=== PATIENT | male | born 1975 | race Caucasian/White ===

== ENCOUNTER 2017-10-19 23:48 | Emergency (ER) | payer SELFPAY ==
[~2017-10-19 23:48] MED LIST: LOR5 PO; NO MEDS; [UNRECOGNIZED DRUG - CODE] PO
[2017-10-20 00:16] LABS: PLATELET COUNT, AUTOMATED 861 K/uL (150-450)
--- NOTE | 2017-10-20 00:29 | ER Report ---
History and Physical Time Seen By MD: 23:59 Hx. of Stated Complaint: pt started having sharp abdominal pain yesterday after a week of bloating, and cramping. HPI/ROS CHIEF COMPLAINT: Abdominal pain HISTORY OF PRESENT ILLNESS: 42-year-old male presents with abdominal pain since yesterday morning. He describes periumbilical pain with no radiation. He notes crampy, gassy bloating pain which she describes as severe in nature, rating it 8/10. He notes no alleviating or exacerbating factors. She notes no nausea or vomiting. He notes no dysuria or hematuria. Patient denies previous abdominal surgery. He states that he overdosed on ibuprofen and suffered a tear. I think he means an upper GI bleed. Patient states that he's had chronic intermittent diarrhea since then. She notes increased pain with eating food or water. REVIEW OF SYSTEMS: Respiratory: No cough, no dyspnea. Cardiovascular: No chest pain, no palpitations. Gastrointestinal: As above Musculoskeletal: No back pain. Allergies: Coded Allergies: No Known Drug Allergies (Unverified , 10/27/11) Home Meds Active Scripts Potassium Chloride (K-TAB) 10 Meq Tablet.er, 10 MEQ PO DAILY for potassium replacement, #30 Prov:TYRONE DEL CASTILLO DO 10/20/17 Ondansetron (ZOFRAN ODT) 4 Mg Tab.rapdis, 4 MG PO every 6 hours Y for NAUSEA/ VOMITING, #12 TAB TAKE 1 TABLET BY MOUTH EVERY 12 HOURS Prov:TYRONE DEL CASTILLO DO 10/20/17 Tramadol Hcl (TRAMADOL HCL) 50 Mg Tablet, 1 TAB PO Q6H for PAIN, #12 MG TAKE ONE TABLETS BY MOUTH EVERY SIX HOURS NEEDED Prov:TYRONE DEL CASTILLO DO 10/20/17 Discontinued Reported Medications Diclofenac Sodium (Voltaren) 75 Mg Tablet.dr, 75 MG PO BID, #30 10/27/11 Acetaminophen/Hydrocodone (Lortab 5/500) 5 Mg/500 Mg Tab, 1 TAB PO Q6H Y, #10 10/27/11 [No Meds] No Conflict Check 10/27/11 Hx Smoking: Yes Hx Substance Use Disorder: No Constitutional Vital Sign - Last 24 Hours 10/19/17 10/19/17 10/20/17 10/20/17 23:52 23:57 00:00 00:05 Temp 98.7 Pulse 106 102 Resp 16 B/P (MAP) 133/92 133/92 (106) 121/84 (96) Pulse Ox 98 10/20/17 10/20/17 10/20/17 00:30 00:35 01:00 Pulse 99 B/P (MAP) 100/68 (79) 113/75 (88) Physical Exam General Appearance: The patient is alert, has no immediate need for airway protection and no current signs of toxicity. Mild distress, slightly pale appearing, skin warm and dry HEENT: Pupils equal and round no injection. Oropharynx without redness or exudate, mucous. Membranes are moist Respiratory: Chest is non tender, lungs are clear to auscultation. Cardiac: regular rate and rhythm Gastrointestinal: Abdomen is soft, mild periumbilical tenderness, no masses, bowel sounds normal. Musculoskeletal: Neck: Neck is supple and non tender. Extremities have full range of motion and are non tender. Skin: No rashes or lesions. DIFFERENTIAL DIAGNOSIS: After history and physical exam differential diagnosis was considered for abdominal pain including but not limited to appendicitis, cholecystitis, gastritis, food poisoning, gastroenteritis, viral syndrome and urinary tract infection. Medical Decision Making Data Points Result Diagram: 10/20/17 0000 10/20/17 0000 Laboratory Hematology Test 10/20/17 00:00 Red Blood Count 5.58 M/uL (4.00-5.60) Mean Corpuscular Volume 54.4 fL (80.0-96.0) Mean Corpuscular Hemoglobin 16.4 pg (26.0-33.0) Mean Corpuscular Hemoglobin Concent 30.1 g/dL (32.0-36.0) Red Cell Distribution Width 19.5 % (11.5-14.5) Mean Platelet Volume 6.3 fL (7.2-11.1) Neutrophils (%) (Auto) 74.4 % (39.4-72.5) Lymphocytes (%) (Auto) 15.5 % (17.6-49.6) Monocytes (%) (Auto) 9.5 % (4.1-12.4) Eosinophils (%) (Auto) 0.1 % (0.4-6.7) Basophils (%) (Auto) 0.5 % (0.3-1.4) Nucleated RBC Relative Count (auto) 0.0 /100WBC Neutrophils # (Auto) 7.2 K/uL (2.0-7.4) Lymphocytes # (Auto) 1.5 K/uL (1.3-3.6) Monocytes # (Auto) 0.9 K/uL (0.3-1.0) Eosinophils # (Auto) 0.0 K/uL (0.0-0.5) Basophils # (Auto) 0.0 K/uL (0.0-0.1) Nucleated RBC Absolute Count (auto) 0.00 K/uL Peripheral Blood Smear Yes Y/N Urine Color Renae Urine Clarity Slightly-cloudy Urine pH 5.0 pH (4.8-9.5) Urine Specific [place] 1.019 Urine Protein 100 mg/dL (NEGATIVE) Urine Glucose (UA) Negative mg/dL (NEGATIVE) Urine Ketones Trace mg/dL (NEGATIVE) Urine Blood Negative (NEGATIVE) Urine Nitrite Negative (NEGATIVE) Urine Bilirubin Negative (NEGATIVE) Urine Urobilinogen Negative mg/dL (0.2-1.9) Urine Leukocyte Esterase Negative (NEGATIVE) Urine RBC 2 /HPF (0-2/HPF) Urine WBC 6 /HPF (0-5/HPF) Urine WBC Clumps Few /HPF Urine Squamous Epithelial Cells None /LPF (</=FEW) Urine Transitional Epithelial Cells Few /LPF (NONE-FEW) Urine Bacteria Negative /HPF (NONE-FEW) Urine Hyaline Casts Few /LPF (NONE-FEW) Urine Granular Casts Few /LPF (NONE) Urine Mucus Few /HPF (NONE-FEW) Sodium Level 135 mmol/L (137-145) Potassium Level 2.8 mmol/L (3.5-5.0) Chloride Level 96 mmol/L (98-107) Carbon Dioxide Level 27 mmol/L (22-30) Blood Urea Nitrogen 9 mg/dl (9-21) Creatinine 1.00 mg/dl (0.66-1.25) Glomerular Filtration Rate Calc > 60.0 Random Glucose 110 mg/dl (75-110) Calcium Level 8.9 mg/dl (8.4-10.2) Total Bilirubin 0.6 mg/dl (0.2-1.3) Aspartate Amino Transf (AST/SGOT) 21 U/L (0-35) Alanine Aminotransferase (ALT/SGPT) 25 U/L (0-56) Alkaline Phosphatase 143 U/L (0-126) Total Protein 7.8 g/dl (6.3-8.2) Albumin 3.8 g/dl (3.5-5.0) Amylase Level 107 U/L (0-110) Lipase 47 U/L (23-300) Chemistry Test 10/20/17 00:00 White Blood Count 9.7 k/uL (4.5-11.0) Red Blood Count 5.58 M/uL (4.00-5.60) Hemoglobin 9.1 g/dL (14.0-18.0) Hematocrit 30.4 % (42.0-52.0) Mean Corpuscular Volume 54.4 fL (80.0-96.0) Mean Corpuscular Hemoglobin 16.4 pg (26.0-33.0) Mean Corpuscular Hemoglobin Concent 30.1 g/dL (32.0-36.0) Red Cell Distribution Width 19.5 % (11.5-14.5) Platelet Count 861 K/uL (150-450) Mean Platelet Volume 6.3 fL (7.2-11.1) Neutrophils (%) (Auto) 74.4 % (39.4-72.5) Lymphocytes (%) (Auto) 15.5 % (17.6-49.6) Monocytes (%) (Auto) 9.5 % (4.1-12.4) Eosinophils (%) (Auto) 0.1 % (0.4-6.7) Basophils (%) (Auto) 0.5 % (0.3-1.4) Nucleated RBC Relative Count (auto) 0.0 /100WBC Neutrophils # (Auto) 7.2 K/uL (2.0-7.4) Lymphocytes # (Auto) 1.5 K/uL (1.3-3.6) Monocytes # (Auto) 0.9 K/uL (0.3-1.0) Eosinophils # (Auto) 0.0 K/uL (0.0-0.5) Basophils # (Auto) 0.0 K/uL (0.0-0.1) Nucleated RBC Absolute Count (auto) 0.00 K/uL Peripheral Blood Smear Yes Y/N Urine Color Renae Urine Clarity Slightly-cloudy Urine pH 5.0 pH (4.8-9.5) Urine Specific [place] 1.019 Urine Protein 100 mg/dL (NEGATIVE) Urine Glucose (UA) Negative mg/dL (NEGATIVE) Urine Ketones Trace mg/dL (NEGATIVE) Urine Blood Negative (NEGATIVE) Urine Nitrite Negative (NEGATIVE) Urine Bilirubin Negative (NEGATIVE) Urine Urobilinogen Negative mg/dL (0.2-1.9) Urine Leukocyte Esterase Negative (NEGATIVE) Urine RBC 2 /HPF (0-2/HPF) Urine WBC 6 /HPF (0-5/HPF) Urine WBC Clumps Few /HPF Urine Squamous Epithelial Cells None /LPF (</=FEW) Urine Transitional Epithelial Cells Few /LPF (NONE-FEW) Urine Bacteria Negative /HPF (NONE-FEW) Urine Hyaline Casts Few /LPF (NONE-FEW) Urine Granular Casts Few /LPF (NONE) Urine Mucus Few /HPF (NONE-FEW) Glomerular Filtration Rate Calc > 60.0 Calcium Level 8.9 mg/dl (8.4-10.2) Total Bilirubin 0.6 mg/dl (0.2-1.3) Aspartate Amino Transf (AST/SGOT) 21 U/L (0-35) Alanine Aminotransferase (ALT/SGPT) 25 U/L (0-56) Alkaline Phosphatase 143 U/L (0-126) Total Protein 7.8 g/dl (6.3-8.2) Albumin 3.8 g/dl (3.5-5.0) Amylase Level 107 U/L (0-110) Lipase 47 U/L (23-300) Urinalysis Test 10/20/17 00:00 Urine Color Renae Urine Clarity Slightly-cloudy Urine pH 5.0 pH (4.8-9.5) Urine Specific [place] 1.019 Urine Protein 100 mg/dL (NEGATIVE) Urine Glucose (UA) Negative mg/dL (NEGATIVE) Urine Ketones Trace mg/dL (NEGATIVE) Urine Blood Negative (NEGATIVE) Urine Nitrite Negative (NEGATIVE) Urine Bilirubin Negative (NEGATIVE) Urine Urobilinogen Negative mg/dL (0.2-1.9) Urine Leukocyte Esterase Negative (NEGATIVE) Urine RBC 2 /HPF (0-2/HPF) Urine WBC 6 /HPF (0-5/HPF) Urine WBC Clumps Few /HPF Urine Squamous Epithelial Cells None /LPF (</=FEW) Urine Transitional Epithelial Cells Few /LPF (NONE-FEW) Urine Bacteria Negative /HPF (NONE-FEW) Urine Hyaline Casts Few /LPF (NONE-FEW) Urine Granular Casts Few /LPF (NONE) Urine Mucus Few /HPF (NONE-FEW) ED Course/Re-evaluation Clinical Indication for ER IV: IV Access ED Course Patient was admitted to an examination room. H&P was done. The differential diagnoses was considered. On clinical examination. Patient has periumbilical pain. He has a normal white blood cell count. On clinical examination is benign nonsurgical abdomen. He does have iron deficiency anemia. His alkaline phosphatase is mildly elevated. Potassium returns at 2.8. He is given 40 no evidence of potassium by mouth His urinalysis has a few white cells in by dad infection. I do not think the etiology of his pain is and appendicitis. Patient be discharged home. His advised to follow-up with primary care. He needs to have his potassium rechecked. He needs his iron deficiency anemia evaluated. Patient's cautioned return to the ER for any worsening of his abdominal pain. He is advised clear liquid diet. He is given tramadol for pain and Zofran for nausea. Decision to Disposition Date: Oct 20, 2017 Decision to Disposition Time: 01:09 Depart Departure Latest Vital Signs Vital Signs Date Time Temp Pulse Resp B/P (MAP) Pulse Ox O2 Delivery O2 Flow Rate FiO2 10/20/17 01:00 113/75 (88) 10/20/17 00:35 99 10/19/17 23:52 98.7 16 98 Impression: Primary Impression: Abdominal pain Additional Impressions: Iron deficiency anemia Elevated alkaline phosphatase level Hypokalemia Condition: Improved Disposition: HOME OR SELF-CARE Referrals: GABRIELA THOMAS MD, FARRUKH MD New Scripts Potassium Chloride (K-TAB) 10 Meq Tablet.er 10 MEQ PO DAILY for potassium replacement, #30 Prov: TYRONE DEL CASTILLO DO 10/20/17 Ondansetron (ZOFRAN ODT) 4 Mg Tab.rapdis 4 MG PO every 6 hours Y for NAUSEA/VOMITING, #12 TAB TAKE 1 TABLET BY MOUTH EVERY 12 HOURS Prov: TYRONE DEL CASTILLO DO 10/20/17 Tramadol Hcl (TRAMADOL HCL) 50 Mg Tablet 1 TAB PO Q6H for PAIN, #12 MG TAKE ONE TABLETS BY MOUTH EVERY SIX HOURS NEEDED Prov: TYRONE DEL CASTILLO DO 10/20/17 Patient Instructions: Abdominal Pain (ED), Clear Liquid Diet (ED), Hypokalemia (ED), Iron Deficiency Anemia (ED) Additional Instructions: Follow clear liquid diet for 24-48 hours Follow-up with primary care if unimproved in 2-4 days Return to the ER for any worsening Problem Qualifiers Primary Impression: Abdominal pain Abdominal location: periumbilical Qualified Codes: R10.33 - Periumbilical pain Additional Impressions: Iron deficiency anemia Iron deficiency anemia type: unspecified iron deficiency Qualified Codes: D50.9 - Iron deficiency anemia, unspecified TYRONE DEL CASTILLO DO Oct 20, 2017 00:29
[2017-10-20 01:00] VITALS: BP 113/75
[2017-10-20] MEDS ORDERED: traMADol 50 MG TAB TH 2 TAB/BOTTLE PO ONE (01:05)
[2017-10-20] MEDS ORDERED: ONDANSETRON 4 MG ODT TH SL ONE (01:05)
[2017-10-20] MEDS ORDERED: TRAM-420 PO (01:14)
[2017-10-20] MEDS ORDERED: ONDA4TAB PO (01:14)
[2017-10-20] MEDS ORDERED: POTA-1 PO (01:19)
[2017-10-20] MEDS ORDERED: POTASSIUM CHL 20 MEQ TABCR PO ONE (01:20)
[2017-10-20] MEDS ORDERED: ONDANSETRON 4 MG ODT TABDP SL ONE (01:20)
== END 2017-10-20 01:30 | disposition home or self-care (01) ==
LOC: ER 23:50
DX: R10.33 Periumbilical pain (principal); D50.9 Iron deficiency anemia, unspecified; R79.89 Other specified abnormal findings of blood chemistry; E87.6 Hypokalemia
CPT/HCPCS: 81001; 82150; 83690; 85025; 99283; C9399; S0119; 82040; 82247; 82310; 82374; 82435; 82565; 82947; 84075; 84132; 84155; 84295; 84450; 84460; 84520

== ENCOUNTER 2017-12-09 14:30 | Inpatient (IN) | payer BC ==
[~2017-12-09] VITALS: Ht 167.6 cm; Wt 54.4 kg
[~2017-12-09 14:30] MED LIST changes: +ONDA4TAB PO; +POTA-1 PO; +TRAM-420 PO
--- NOTE | 2017-12-09 14:32 | ER Report ---
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 He started at 8 AM with right sided severe abdominal pain that seems to be creasing in intensity and no associated nausea or vomiting. No fevers or chills. No dysuria or hematuria. She denies any other significant past medical history and is on no medications. REVIEW OF SYSTEMS: Respiratory: No cough, no dyspnea. Cardiovascular: No chest pain, no palpitations. Gastrointestinal: Right-sided flank and abdominal pain Musculoskeletal: No back pain. (CONNIE KNIGHT MD) Allergies: Coded Allergies: No Known Drug Allergies (Unverified , 12/09/17) Home Meds Discontinued Scripts Potassium Chloride (K-TAB) 10 Meq Tablet.er, 10 MEQ PO DAILY for potassium replacement, #30 Prov:TYRONE DEL CASTILLO DO 10/20/17 Ondansetron (ZOFRAN ODT) 4 Mg Tab.rapdis, 4 MG PO every 6 hours PRN for NAUSEA/VOMITING, #12 TAB TAKE 1 TABLET BY MOUTH EVERY 12 HOURS Prov:TYRONE DEL CASTILLO DO 10/20/17 Tramadol Hcl (TRAMADOL HCL) 50 Mg Tablet, 1 TAB PO Q6H for PAIN, #12 MG TAKE ONE TABLETS BY MOUTH EVERY SIX HOURS NEEDED Prov:TYRONE DEL CASTILLO DO 10/20/17 Past Medical/Surgical History Noncontributory (CONNIE KNIGHT MD) Hx Smoking: Yes Hx Substance Use Disorder: No (CONNIE KNIGHT MD) Constitutional Vital Sign - Last 24 Hours 12/09/17 12/09/17 12/09/17 12/09/17 14:30 14:34 14:39 14:45 Temp 98.1 Pulse ??? 85 85 Resp 16 B/P (MAP) 137/93 137/93 (108) Pulse Ox 100 99 O2 Delivery Room Air 12/09/17 12/09/17 12/09/17 12/09/17 15:00 15:15 15:30 15:35 Pulse ??? 85 ? B/P (MAP) 114/83 (93) Pulse Ox 100 89 10/4/12/09/17 12/09/17 12/09/17 15:50 16:00 16:05 16:20 Pulse ? B/P (MAP) 114/77 (89) 12/09/17 12/09/17 16:30 16:35 Pulse ??? B/P (MAP) 111/71 (84) (DIMITRI GRIDER V DO) Physical Exam General Appearance: The patient is alert, has no immediate need for airway protection and no current signs of toxicity. Eyes: Pupils equal and round no injection. Respiratory: Chest is non tender, lungs are clear to auscultation. Cardiac: regular rate and rhythm Gastrointestinal: Abdomen is for right lower quadrant and right flank pain. He is voluntarily guarding Musculoskeletal: Neck: Neck is supple and non tender. Extremities have full range of motion and are non tender. Skin: No rashes or lesions. (CONNIE KNIGHT MD) Medical Decision Making Data Points Result Diagram: 12/10/17 0512/10/17 0524 Laboratory Hematology Test 12/09/17 00:00 12/09/17 14:33 12/09/17 14:50 12/09/17 15:28 Magnesium Level 1.9 mg/dl (1.7-2.2) Urine Color Yellow Urine Clarity Clear Urine pH 5.0 pH (4.8-9.5) Urine Specific [place] 1.015 Urine Protein Negative mg/dL (NEGATIVE) Urine Glucose (UA) Negative mg/dL (NEGATIVE) Urine Ketones Negative mg/dL (NEGATIVE) Urine Blood Small (NEGATIVE) Urine Nitrite Negative (NEGATIVE) Urine Bilirubin Negative (NEGATIVE) Urine Urobilinogen Negative mg/dL (0.2-1.9) Urine Leukocyte Esterase Negative (NEGATIVE) Urine RBC 14 /HPF (0-2/HPF) Urine WBC 1 /HPF (0-5/HPF) Urine Squamous Epithelial Cells None /LPF (</=FEW) Urine Bacteria Few /HPF (NONE-FEW) Urine Mucus Few /HPF (NONE-FEW) Red Blood Count 4.84 M/uL (4.00-5.60) Mean Corpuscular Volume 54.2 fL (80.0-96.0) Mean Corpuscular Hemoglobin 15.2 pg (26.0-33.0) Mean Corpuscular Hemoglobin Concent 28.0 g/dL (32.0-36.0) Red Cell Distribution Width 20.8 % (11.5-14.5) Mean Platelet Volume 8.2 fL (7.2-11.1) Neutrophils (%) (Auto) 70.1 % (39.4-72.5) Lymphocytes (%) (Auto) 19.6 % (17.6-49.6) Monocytes (%) (Auto) 8.6 % (4.1-12.4) Eosinophils (%) (Auto) 1.3 % (0.4-6.7) Basophils (%) (Auto) 0.4 % (0.3-1.4) Nucleated RBC Relative Count (auto) 0.0 /100WBC Neutrophils # (Auto) 5.7 K/uL (2.0-7.4) Lymphocytes # (Auto) 1.6 K/uL (1.3-3.6) Monocytes # (Auto) 0.7 K/uL (0.3-1.0) Eosinophils # (Auto) 0.1 K/uL (0.0-0.5) Basophils # (Auto) 0.0 K/uL (0.0-0.1) Nucleated RBC Absolute Count (auto) 0.00 K/uL Peripheral Blood Smear Yes Y/N Sodium Level 135 mmol/L (137-145) Potassium Level 3.3 mmol/L (3.5-5.0) Chloride Level 99 mmol/L (98-107) Carbon Dioxide Level 27 mmol/L (22-30) Blood Urea Nitrogen 14 mg/dl (9-21) Creatinine 1.20 mg/dl (0.66-1.25) Glomerular Filtration Rate Calc > 60.0 Random Glucose 116 mg/dl (75-110) Calcium Level 8.2 mg/dl (8.4-10.2) Total Bilirubin 0.3 mg/dl (0.2-1.3) Aspartate Amino Transf (AST/SGOT) 21 U/L (0-35) Alanine Aminotransferase (ALT/SGPT) 23 U/L (0-56) Alkaline Phosphatase 97 U/L (0-126) Total Protein 7.0 g/dl (6.3-8.2) Albumin 3.0 g/dl (3.5-5.0) Lipase 41 U/L (23-300) Stool Occult Blood (IFOB) Positive (NEGATIVE) Chemistry Test 12/09/17 00:00 12/09/17 14:33 12/09/17 14:50 12/09/17 15:28 Magnesium Level 1.9 mg/dl (1.7-2.2) Urine Color Yellow Urine Clarity Clear Urine pH 5.0 pH (4.8-9.5) Urine Specific [place] 1.015 Urine Protein Negative mg/dL (NEGATIVE) Urine Glucose (UA) Negative mg/dL (NEGATIVE) Urine Ketones Negative mg/dL (NEGATIVE) Urine Blood Small (NEGATIVE) Urine Nitrite Negative (NEGATIVE) Urine Bilirubin Negative (NEGATIVE) Urine Urobilinogen Negative mg/dL (0.2-1.9) Urine Leukocyte Esterase Negative (NEGATIVE) Urine RBC 14 /HPF (0-2/HPF) Urine WBC 1 /HPF (0-5/HPF) Urine Squamous Epithelial Cells None /LPF (</=FEW) Urine Bacteria Few /HPF (NONE-FEW) Urine Mucus Few /HPF (NONE-FEW) White Blood Count 8.1 k/uL (4.5-11.0) Red Blood Count 4.84 M/uL (4.00-5.60) Hemoglobin 7.4 g/dL (14.0-18.0) Hematocrit 26.2 % (42.0-52.0) Mean Corpuscular Volume 54.2 fL (80.0-96.0) Mean Corpuscular Hemoglobin 15.2 pg (26.0-33.0) Mean Corpuscular Hemoglobin Concent 28.0 g/dL (32.0-36.0) Red Cell Distribution Width 20.8 % (11.5-14.5) Platelet Count 861 K/uL (150-450) Mean Platelet Volume 8.2 fL (7.2-11.1) Neutrophils (%) (Auto) 70.1 % (39.4-72.5) Lymphocytes (%) (Auto) 19.6 % (17.6-49.6) Monocytes (%) (Auto) 8.6 % (4.1-12.4) Eosinophils (%) (Auto) 1.3 % (0.4-6.7) Basophils (%) (Auto) 0.4 % (0.3-1.4) Nucleated RBC Relative Count (auto) 0.0 /100WBC Neutrophils # (Auto) 5.7 K/uL (2.0-7.4) Lymphocytes # (Auto) 1.6 K/uL (1.3-3.6) Monocytes # (Auto) 0.7 K/uL (0.3-1.0) Eosinophils # (Auto) 0.1 K/uL (0.0-0.5) Basophils # (Auto) 0.0 K/uL (0.0-0.1) Nucleated RBC Absolute Count (auto) 0.00 K/uL Peripheral Blood Smear Yes Y/N Glomerular Filtration Rate Calc > 60.0 Calcium Level 8.2 mg/dl (8.4-10.2) Total Bilirubin 0.3 mg/dl (0.2-1.3) Aspartate Amino Transf (AST/SGOT) 21 U/L (0-35) Alanine Aminotransferase (ALT/SGPT) 23 U/L (0-56) Alkaline Phosphatase 97 U/L (0-126) Total Protein 7.0 g/dl (6.3-8.2) Albumin 3.0 g/dl (3.5-5.0) Lipase 41 U/L (23-300) Stool Occult Blood (IFOB) Positive (NEGATIVE) Coagulation Test 12/09/17 00:00 Urinalysis Test 12/09/17 14:33 Urine Color Yellow Urine Clarity Clear Urine pH 5.0 pH (4.8-9.5) Urine Specific [place] 1.015 Urine Protein Negative mg/dL (NEGATIVE) Urine Glucose (UA) Negative mg/dL (NEGATIVE) Urine Ketones Negative mg/dL (NEGATIVE) Urine Blood Small (NEGATIVE) Urine Nitrite Negative (NEGATIVE) Urine Bilirubin Negative (NEGATIVE) Urine Urobilinogen Negative mg/dL (0.2-1.9) Urine Leukocyte Esterase Negative (NEGATIVE) Urine RBC 14 /HPF (0-2/HPF) Urine WBC 1 /HPF (0-5/HPF) Urine Squamous Epithelial Cells None /LPF (</=FEW) Urine Bacteria Few /HPF (NONE-FEW) Urine Mucus Few /HPF (NONE-FEW) (DIMITRI GRIDER DO) ED Course/Re-evaluation ED Course 12/09/2017 2:59:42 pm bedside ultrasound shows moderate hydronephrosis of the right kidney and hydroureter. Left kidney appears normal plan at this time will be to obtain CT scan without contrast to look for kidney stone. Decision to Disposition Date: Dec 09, 2017 Decision to Disposition Time: 15:00 (CONNIE KNIGHT MD) Clinical Indication for ER IV: IV Access ED Course 12/09/2017 3:539:09 pm PTs hb came back low. Pt states he has hx of anemia but no hx of transfusions. Pt denies hx of ca. Pt states he has had episodes of diarrhea, bloating on and off for years. Friend told him it could be crohns but pt never tested. Awaiting ct. 12/09/2017 4:00:[address] shows kidney stone in r ureter however pt also has a mass in transveres colon with psbo. will type and cross. Spoke with pt and he is aware he needs admission and testing for inflammatory bowel vs cancer. Pt would like to either stay here or go to [place]. Pt does not want to go to [facility]. Pt is typed and crossed. 12/09/2017 4:27:[address] Godfrey, surgery, coming in to see pt and look at CT. 12/09/2017 5:26:49 pm Pt seen by Dr. godfrey who will admit pt to surgery. Pt is to be start drinking golytely. Decision to Disposition Date: Dec 09, 2017 Decision to Disposition Time: 17:27 (DIMITRI GRIDER DO) Depart Departure Latest Vital Signs Vital Signs Date Time Temp Pulse Resp B/P (MAP) Pulse Ox O2 Delivery O2 Flow Rate FiO2 12/09/17 16:35 ??? 12/09/17 16:30 111/71 (84) 12/09/17 15:15 89 12/09/17 14:34 98.1 16 Room Air (DIMITRI GRIDER DO) Impression: Primary Impression: Colonic mass Additional Impression: Ureteral stone with hydronephrosis Condition: Condition Unchanged Disposition: Admitted from ER Problem Qualifiers CONNIE KNIGHT MD Dec 09, 2017 14:32 DIMITRI GRIDER DO Dec 09, 2017 16:02
[2017-12-09] MEDS ORDERED: NS(*) 0.9% 1000 ML BAG 1,000 ML IV ONE (14:41)
[2017-12-09] MEDS ORDERED: MORPHINE 4 MG/ML SDV IVP ONE (14:45)
[2017-12-09] MEDS ORDERED: KETOROLAC 30 MG/ML VIAL IVP ONE (14:45)
[2017-12-09] MEDS ORDERED: ONDANSETRON 4 MG/2 ML VIAL IVP ONE (14:45)
[2017-12-09 15:02] LABS: PLATELET COUNT, AUTOMATED 861 K/uL (150-450)
--- NOTE | 2017-12-09 16:06 | RADIOLOGY IMAGING REPORT ---
FACILITY: [facility] PATIENT NAME: Silas Morris : 1975 MR: [id number] V: [id number] EXAM DATE: ORDERING PHYSICIAN: CONNIE KNIGHT TECHNOLOGIST: Location: [facility] - [place] Patient: Silas Morris : 1975 Visit/Account:[id number] Date of Sevice: 12/09/2017 EXAMINATION: CT abdomen and pelvis without IV contrast HISTORY: Right flank pain. Hydronephrosis on ultrasound. TECHNIQUE: Axial CT images of the abdomen and pelvis were obtained without IV contrast, with menard l and sagittal 2D reconstructed images. One of the following dose optimization techniques was utilized in the performance of this exam: Autom ated exposure control; adjustment of the mA and/or kV according to the patient's size; or use of an i terative reconstruction technique. Specific details can be referenced in the facility's radiology C T exam operational policy. COMPARISON: None. FINDINGS: Evaluation of the solid and viscus parenchymal organs is limited without the benefit of IV contrast. Liver: Normal hepatic size and morphology. No evidence of any focal liver mass by noncontrast CT im aging. Gallbladder and bile ducts: Negative. Spleen: Negative. Pancreas: Negative. Adrenal glands: Negative. Kidneys: Mild hydronephrosis of the right kidney. There is a 4 mm calculus in the upper right urete r near the UPJ. Perinephric stranding surrounds the right kidney likely related to obstructive uropa thy. The left kidney is negative for hydronephrosis. There are numerous small nonobstructing calcul i within the upper and lower kidneys bilaterally. There is a rounded exophytic lesion arising from the lower pole of the left kidney which measures hig her attenuation than a simple cyst and is indeterminate. Bowel and peritoneum: There is marked irregularity and masslike wall thickening along the mid transv erse colon. This region measures up to 4.9 x 6.1 cm in diameter. Soft tissue attenuation extends in to the adjacent pericolonic fat and abuts the soft tissue structures of the anterior abdominal wall a s well as the adjacent gastric antrum. There are several punctate bubbles of gas within this extraco lonic soft tissue density which may relate to communication with the colonic lumen and/or fistulous c onnection to the stomach. The upstream transverse and right colon are significantly distended with s tool. The stool-filled right colon measures up to 8 cm in diameter. There is a small amount of air in the distal transverse colon past the irregular segment. The distal colon is otherwise mostly deco mpressed. There does appear to be additional mild diffuse wall thickening along the decompressed nanette cending and sigmoid colon. Small bowel loops are normal in caliber. There is diffuse wall thickening of distal small bowel loop s in the pelvis extending to the terminal ileum which could be due to a separate infectious or inflam matory ileitis. There is a trace amount of free fluid in the pelvis. No free intraperitoneal air. The appendix is unremarkable. Pelvic structures: Negative. Lymph node assessment: Negative. Vessels: Negative. Musculoskeletal: No acute osseous findings or suspicious focal osseous lesions. There is bony anky losis of the sacroiliac joints bilaterally. Body wall: Likely soft tissue invasion of the anterior abdominal wall by the soft tissue process sylvester nating from the mid transverse colon, with some indistinctness of the soft tissue planes along the mi dline abdominal wall at the level of the umbilicus. Lung bases: Negative. IMPRESSION: 1. Obstructing 4 mm calculus in the upper right ureter near the UPJ, with mild right hydronephrosis. There are multiple additional nonobstructing calculi in both kidneys 2. There is a masslike region of irregular wall thickening along the mid transverse colon with extracolonic soft tissue attenuatio n which appears to invade the anterior abdominal wall and possibly the gastric antrum. This results in some degree of colonic obstruction with significant distention of the stool-filled right colon whi ch measures up to 8.5 cm. The distal colon is relatively decompressed. CT appearance is concerning for colonic malignancy with possible invasion into the adjacent abdominal wall and stomach. Alternat ively, this could represent a severe inflammatory process related to inflammatory bowel disease given the other GI and musculoskeletal findings, with possible fistulous connection to the stomach and/or abdominal wall. 3. There is diffuse wall thickening of multiple small bowel loops in the pelvis extending to the ter chanel ileum. This may be compatible with an infectious or inflammatory ileitis. Given the presence of bilateral sacroiliac joint ankylosis, underlying Crohn's disease is a strong diagnostic considerat ion. There is likely additional wall thickening along the decompressed descending and sigmoid colon which may also relate to underlying inflammatory bowel disease. 4. Symmetric bony ankylosis of the bilateral sacroiliac joints compatible with chronic sacroiliitis. No CT evidence of spondyloarthropathy changes along the lumbar spine. 5. There is an indeterminate exophytic lesion arising from the lower pole of the left kidney measuri ng up to 2.7 cm. This may represent a hyperdense proteinaceous or hemorrhagic cyst. A solid renal m ass is not excluded by noncontrast CT imaging. Follow-up contrast enhanced CT may be helpful for fur ther characterization. Findings were discussed with Dr. Martinez at 12/09/2017 3:48 PM. Report Dictated By: Reed Boyle MD at 12/09/2017 3:30 PM Report E-Signed By: Reed Boyle MD at 12/09/2017 4:03 PM WSN:[id number]
[2017-12-09] MEDS ORDERED: PEG (High)/E-LYTE SOLN 4000 ML PO ONE (17:25)
[2017-12-09 17:35] LABS: INR 1.03
--- NOTE | 2017-12-09 18:14 | Gen Surgery History & Physical ---
History of Present Illness Chief Complaint abdominal pain History of Present Illness 42 yo male presents with attila-umbilical, crampy pain X24 hours. He wanted to "get checked" before he went to work at [employer]. He denies NVD, had a normal BM this am. He has hx of alternating diarrhea and constipation for several years. He denies any weight loss or change of bowel habits. He denies melena or BRBPR. No prior colonoscopy, no family hx of CRCA. Pt was seen in the [facility] ER 5 weeks ago with similar s/s and noted to have ALEJANDRO. ABD CT was not performed at that time. Pt states he has been aware of the supraumbilical mass for 1-2 months and states he thought it was "bloating." History Home Meds Active Scripts Potassium Chloride (K-TAB) 10 Meq Tablet.er, 10 MEQ PO DAILY for potassium replacement, #30 Prov:TYRONE DEL CASTILLO DO 10/20/17 Ondansetron (ZOFRAN ODT) 4 Mg Tab.rapdis, 4 MG PO every 6 hours PRN for NAUSEA/VOMITING, #12 TAB TAKE 1 TABLET BY MOUTH EVERY 12 HOURS Prov:TYRONE DEL CASTILLO DO 10/20/17 Tramadol Hcl (TRAMADOL HCL) 50 Mg Tablet, 1 TAB PO Q6H for PAIN, #12 MG TAKE ONE TABLETS BY MOUTH EVERY SIX HOURS NEEDED Prov:TYRONE DEL CASTILLO DO 10/20/17 Allergies: Coded Allergies: No Known Drug Allergies (Unverified , 12/09/17) Review of Systems All Systems Reviewed/Normal: Yes, Except as Noted Gastrointestinal: Abdominal Pain, Other (see HPI) Exam General Appearance: Alert, Awake, No Acute Distress, Afebrile, Other (cachetic appearing) Neuro: No Gross deficits Cardiovascular: Normal Rhythm & Peripheral Pulses, Regular Rate and Rhythm, No Edema, No JVD Respiratory: No Respiratory Distress, Clear to Auscultation GI: Abd Soft and Non-Tender, Other (visible and palpable mass at the supra- umbilical position, 8 X 10 cm; no ascites or HSM) : Normal Lymph: No Adenopathy Musculoskeletal: No Weakness/Pain Extremities: Soft and Non Tender, Warm, Pulses, Perfused Integumentary: Skin Intact without Lesion / Mass Psych: Alert & Oriented X3, Appropriate Mood & Affect Medical Decision Making Data Points Result Diagram: 12/09/17 1450 12/09/17 1450 EKG / Imaging Monitor Interpretation: Normal Sinus Rhythm Pre-Admit Course Medical Record Review: Yes Assessment and Plan Problems: (1) Colonic mass Status: Acute Assessment & Plan: Mass is concerning for locally advanced colorectal malignancy. Will start mechanical and chemical bowel prep this evening and plan en bloc resection of this mass in the am. Pre-op colonoscopy would be optimal to rule out synchronous lesion. CEA pending. Type and cross for 2 U PRBCs complete, and will transfuse either tonight or in am/OR depending how bowel prep goes. Proc/risks/benefits discussed in detail with pt. His questions have been answered. Pt understands I will introduce Dr Clements to him in the am who will be his surgeon in the am. (2) Iron deficiency anemia Status: Acute Assessment & Plan: Pt minimally symptomatic, will likely need transfusion attila- operatively. (3) Ureteral stone with hydronephrosis Status: Chronic Assessment & Plan: probably chronic, will follow. Time Spent: > 30 min Critical Time Spent: 1st 30-74 Minutes Venous Thromboembolism VTE Risk Physician Assess for VTE Risk: Yes Patient's VTE Risk: High VTE Diagnostic Test 2 Days Prior to Admit: No Antithrombotics Is Pt On Any Antithrombotics?: No Problem Qualifiers (1) Iron deficiency anemia: Iron deficiency anemia type: chronic blood loss Qualified Codes: D50.0 - Iron deficiency anemia secondary to blood loss (chronic) ARTUR RICHEY MD Dec 09, 2017 18:14
[2017-12-09] MEDS ORDERED: ONDANSETRON 4 MG/2 ML VIAL IVP PRN (18:20)
[2017-12-09] MEDS ORDERED: PROMETHAZINE 25 MG/ML 1 ML AMP IVP PRN (18:20)
[2017-12-09] MEDS ORDERED: fentaNYL CITR 100 MCG/2 ML AMP IVP PRN (18:20)
[2017-12-09] MEDS ORDERED: NALOXONE HCL 0.4 MG/ML VIAL IVP PRN (18:20)
[2017-12-09] MEDS ORDERED: ACETAMINOPHEN 325 MG TAB PO PRN (18:20)
[2017-12-09] MEDS ORDERED: FLUSH 10 ML SYR IVP PRN (18:20)
[2017-12-09 18:40] VITALS: BP 114/79
[2017-12-09] MEDS ORDERED: NEOMYCIN SULFATE 500 MG TAB PO ONE ×2 (18:45→20:00)
[2017-12-09] MEDS: METRONIDAZOLE 500 MG TABLET PO SCH ×3 (18:59→23:42)
[2017-12-09] MEDS: KCL/D1/2NS 20 MEQ 1000 ML 1,000 ML IV PRN (20:12)
[2017-12-09 22:50] VITALS: BP 114/76
[2017-12-10] VITALS (17 sets, daily range): BP systolic 101–140; BP diastolic 71–95; Ht 167.6 cm; Wt 54.4 kg
[2017-12-10] MEDS ORDERED: NEOMYCIN SULFATE 500 MG TAB PO ONE
--- NOTE | 2017-12-10 00:46 | EKG ---
FACILITY: [facility] PATIENT NAME: ELISEO HARRIS : [id number] MR: [id number] V: [id number] EXAM DATE: ORDERING PHYSICIAN: ARTUR RICHEY TECHNOLOGIST: CHRIS Test Reason : PRE-OP Blood Pressure : / mmHG Vent. Rate : 075 BPM Atrial Rate : 075 BPM P-R Int : 132 ms QRS Dur : 074 ms QT Int : 394 ms P-R-T Axes : 079 016 056 degrees QTc Int : 439 ms Normal sinus rhythm Normal ECG No previous ECGs available Confirmed by CHILANGO DIAMOND ([id number]) on 12/10/2017 1:39:36 PM Referred By: Confirmed By:CHILANGO DIAMOND
[2017-12-10 05:49] LABS: PLATELET COUNT, AUTOMATED 642 K/uL (150-450)
[2017-12-10] MEDS: KCL/D1/2NS 20 MEQ 1000 ML 1,000 ML IV PRN (05:55)
--- NOTE | 2017-12-10 06:38 | RADIOLOGY IMAGING REPORT ---
FACILITY: [facility] PATIENT NAME: Silas Morris : 1975 MR: [id number] V: [id number] EXAM DATE: ORDERING PHYSICIAN: ARTUR RICHEY TECHNOLOGIST: Location: [facility] - [place] Patient: Silas Morris : 1975 Visit/Account:[id number] Date of Sevice: 12/09/2017 CHEST SINGLE AP Indication: Preop. Colon cancer. Comparison: None available Findings: The lungs are clear. No pneumothorax or pleural effusion. Heart size is normal. IMPRESSION: 1. No acute cardiopulmonary process. Report Dictated By: Dinesh Eldridge at 12/10/2017 6:32 AM Report E-Signed By: Dinesh Eldridge at 12/10/2017 6:34 AM WSN:[id number]
[2017-12-10] MEDS ORDERED: NS(*) 0.9% 500 ML BAG 500 ML IV PRN (06:50)
[2017-12-10] MEDS ORDERED: NORMOSOL R SOLN(*) 1000 ML BAG 1,000 ML IV ONE (07:00)
[2017-12-10] MEDS ORDERED: PANTOPRAZOLE SOD 40 MG IV VIAL IVP ONE (07:35)
[2017-12-10] MEDS ORDERED: LIDOCAINE/SOD BICARB 8.4% SYR ONE (07:47)
--- NOTE | 2017-12-10 07:49 | General Surgery Progress Note ---
Subjective Progress Notes Subjective No new complaints, bowel prep tolerated well, reports clear effluent Physical Exam Vital Signs Date Time Temp Pulse Resp B/P (MAP) Pulse Ox O2 Delivery O2 Flow Rate FiO2 12/10/17 07:25 98.9 86 16 111/76 12/10/17 05:15 95 Room Air Intake and Output 12/10/17 07:00 Intake Total 2500 ml Balance 2500 ml Intake Oral 500 ml IV Total 2000 ml General Appearance: Alert, Awake, No Acute Distress, Afebrile Neuro: No Gross deficits ENT: Moist Mucous Membranes Cardiovascular: Regular Rate and Rhythm Respiratory: No Respiratory Distress, Clear to Auscultation GI: Soft and Non-Tender (Palpable mass in mid upper abdomen) Lymph: No Adenopathy Extremities: Soft and Non Tender Psych: Alert & Oriented X3 Result Diagram: 12/10/1752312/10/17523 Monitor Interpretation: Normal Sinus Rhythm Assessment and Plan Problems: (1) Colonic mass Status: Acute Assessment & Plan: Mass is concerning for locally advanced colorectal malignancy. Will start mechanical and chemical bowel prep this evening and plan en bloc resection of this mass in the am. Pre-op colonoscopy would be optimal to rule out synchronous lesion. CEA pending. Type and cross for 2 U PRBCs complete, and will transfuse either tonight or in am/OR depending how bowel prep goes. Proc/risks/benefits discussed in detail with pt. His questions have been an swered. Pt understands I will introduce Dr Remy to him in the am who will be his surgeon in the am. 12/10/2017: CT reviewed in detail with radiologist. The descending colon also appears thickened with loss of markings raising question of inflammatory bowel disease. I discussed with the patient the differential diagnosis, the importance of having Dr. Montoya perform colonoscopy prior to proceeding with laparotomy. I discussed the procedure of laparotomy and colectomy with possibility of needing a temporary stoma, as well as the risks and possible complications of surgery. Alicia has had all his questions answered and wishes to proceed with colonoscopy followed by laparotomy and colectomy, and indicated procedures. Informed consent was obtained. (2) Iron deficiency anemia Status: Acute Assessment & Plan: Pt minimally symptomatic, will likely need transfusion attila- operatively. 12/10/2017: Hgb down to 5 after hydration. Two units PRBC's being transfused preoperatively. (3) Ureteral stone with hydronephrosis Status: Chronic Assessment & Plan: probably chronic, will follow. Time Spent: > 30 min Exam Sepsis Risk: No Definite Risk Problem Qualifiers (1) Iron deficiency anemia: Iron deficiency anemia type: chronic blood loss Qualified Codes: D50.0 - Iron deficiency anemia secondary to blood loss (chronic) ZAMZAM REMY MD Dec 10, 2017 07:49
[2017-12-10] MEDS ORDERED: LIDOCAINE MPF 1% 5 ML VIAL ONE (08:02)
[2017-12-10] MEDS ORDERED: DEXAMETHASONE SOD 4 MG/ML VIAL ONE (08:02)
[2017-12-10] MEDS ORDERED: ONDANSETRON 4 MG/2 ML VIAL ONE (08:02)
[2017-12-10] MEDS ORDERED: PROPOFOL EMUL(*) 10MG/ML 20 ML 20 ML ONE (08:02)
[2017-12-10] MEDS ORDERED: METOCLOPRAMIDE 10 MG/2 ML SDV ONE (08:02)
[2017-12-10] MEDS ORDERED: fentaNYL CITR 250 MCG/5 ML AMP ONE (08:29)
[2017-12-10] MEDS ORDERED: BUPIVACAINE/EPI 0.5% 50ML VIAL INFIL ONE (08:53)
[2017-12-10] MEDS ORDERED: cefOXitin/DEX(*) 2GM/50ML PREM 50 ML IVPB ONE (09:00)
[2017-12-10] MEDS ORDERED: SUGAMMADEX SOD 200 MG/2 ML SDV ONE (09:18)
[2017-12-10] MEDS ORDERED: ROPIVACAINE 0.2% 20 ML VIAL ONE (09:21)
--- NOTE | 2017-12-10 09:21 | General Surgery Consultation ---
History of Present Illness Requesting Physician Dr. Clements, general surgery Reason for Consult Request colonoscopy Chief Complaint Abdominal pain and fullness History of Present Illness 42-year-old gentleman who is admitted to the Gen. surgery service yesterday from the emergency room complaining of abdominal pain. He is also had diarrhea on and off since he was a teenager. CT scan is very concerning revealing a mass in his transverse colon. There are also diffuse inflammatory changes and a small and large bowel suspicious for inflammatory bowel disease. The patient has never been formally diagnosed with inflammatory bowel disease. He's never had a colonoscopy. He's never been on any sort of treatment for inflammatory bowel disease. Dr. Clements has the patient added on for an exploratory laparotomy today but he is requesting a colonoscopy prior to this to get a better sense of what is going on in this patient's colon. History Home Meds Discontinued Scripts Potassium Chloride (K-TAB) 10 Meq Tablet.er, 10 MEQ PO DAILY for potassium replacement, #30 Prov:TYRONE DEL CASTILLO DO 10/20/17 Ondansetron (ZOFRAN ODT) 4 Mg Tab.rapdis, 4 MG PO every 6 hours PRN for NAUSEA/VOMITING, #12 TAB TAKE 1 TABLET BY MOUTH EVERY 12 HOURS Prov:TYRONE DEL CASTILLO Heather DO 10/20/17 Tramadol Hcl (TRAMADOL HCL) 50 Mg Tablet, 1 TAB PO Q6H for PAIN, #12 MG TAKE ONE TABLETS BY MOUTH EVERY SIX HOURS NEEDED Prov:TYRONE DEL CASTILLO DO 10/20/17 Allergies: Coded Allergies: No Known Drug Allergies (Unverified , 12/09/17) Family History: FH: diabetes mellitus BROTHER OR SISTER Review of Systems All Systems Reviewed/Normal: Yes, Except as Noted Gastrointestinal: Diarrhea, Abdominal Pain Exam Vital Signs Vital Signs Date Time Temp Pulse Resp B/P (MAP) Pulse Ox O2 Delivery O2 Flow Rate FiO2 12/10/17 08:45 97.8 90 11 101/71 12/10/17 07:53 97 Room Air General Appearance: Alert, Awake, No Acute Distress, Afebrile GI: Other (soft, there is a palpable mass in his supraumbilical midline which correlates with the CT findings. There is mild tenderness to palpation.) Extremities: Warm, Perfused Medical Decision Making Data Points Result Diagram: 12/10/1752312/10/17523 Assessment and Plan Problems: (1) Colonic mass Status: Acute Assessment & Plan: Mass is concerning for locally advanced colorectal malignancy. Will start mechanical and chemical bowel prep this evening and plan en bloc resection of this mass in the am. Pre-op colonoscopy would be optimal to rule out synchronous lesion. CEA pending. Type and cross for 2 U PRBCs complete, and will transfuse either tonight or in am/OR depending how bowel prep goes. Proc/risks/benefits discussed in detail with pt. His questions have been answered. Pt understands I will introduce Dr Clements to him in the am who will be his surgeon in the am. 12/10/2017: CT reviewed in detail with radiologist. The descending colon also appears thickened with loss of markings raising question of inflammatory bowel disease. I discussed with the patient the differential diagnosis, the importance of having Dr. Montoya perform colonoscopy prior to proceeding with laparotomy. I discussed the procedure of laparotomy and colectomy with possib ility of needing a temporary stoma, as well as the risks and possible complications of surgery. Alicia has had all his questions answered and wishes to proceed with colonoscopy followed by laparotomy and colectomy, and indicated procedures. Informed consent was obtained. 12/10/17 (Dr. Forman note): I spoke and evaluated the patient along with Dr. Clements and Dr. Ortiz. I discussed performing a colonoscopy on him before his surgery. I explained the procedure to him and he seems to understand and seems agreeable with proceeding with colonoscopy. He has been bowel prepped yesterday and has been NPO overnight. He would like to proceed with colonoscopy immediately prior to his surgery. (2) Abdominal pain Status: Acute Condition Stable Time Spent: < 30 min Venous Thromboembolism Antithrombotics Is Pt On Any Antithrombotics?: No Problem Qualifiers (1) Abdominal pain: Abdominal location: periumbilical Qualified Codes: R10.33 - Periumbilical pain ADILIA FORMAN MD Dec 10, 2017 09:21
--- NOTE | 2017-12-10 09:27 | Post Operative Progress Note ---
Post Operative Progress Note Date: Dec 10, 2017 Time: 09:24 Surgeon: Ga Anesthesia: Gen. endotracheal anesthesia by [facility] Pre-Op Diagnosis: Transverse colonic mass Enteritis Colitis Post-Op Diagnosis: Suspected Crohn's Transverse colon mass Findings: Ulcerations throughout colon but there are intervening relatively normal-appearing segments of colon. There is a lesion in his mid transverse colon that is very suspicious for a neoplasm. His terminal ileum appears very inflamed as well. Procedure(s): Colonoscopy with biopsies Specimen Removed:(May be N/A): Cold forceps biopsies of terminal ileum Complications: None Fluids: See anesthesia record Estimated Blood Loss: None Date OP Note Dictated: Dec 10, 2017 Time OP Note Dictated: 09:26 ADILIA FORMAN MD Dec 10, 2017 09:26
--- NOTE | 2017-12-10 09:32 | Miscellaneous Provider Note ---
Miscellaneous Provider Note Note Preprocedural diagnosis: Colitis, transverse colon mass, enteritis Postprocedural diagnosis: same as above Procedure: colonoscopy with biopsies Endoscopist: Ga Anesthesia: GETA by Dr. Arias Specimens: Cold forceps biopsies from terminal ileum Findings: Ulcerations throughout the colon but with intervening relatively normal short segments of colon, mass in transverse colon suspicious for a neoplasm, terminal ileitis Indications: This is a 42-year-old gentleman who was admitted to the general surgery service from the emergency room with abdominal pain and a palpable intra-abdominal mass and a CT scan with colitis, enteritis, and a transverse colon mass. He is scheduled for exploratory laparotomy today by Dr. Clements but he has requested a colonoscopy prior to the surgery to better assess the inflammatory changes and the mass. Procedure: This was completed in the operating room on the operating table under general anesthesia in preparation for his surgery. He was placed in yellowfin stirrups and a digital rectal exam was completed which was unremarkable. The colonoscope was tested and lubricated and inserted and advanced with little difficulty all the way to his cecum. His colon was very foreshortened and I made it to the cecum in 2 minutes and the scope was only at 70 cm at his anus. I intubated the terminal ileum which appeared grossly inflamed. I took several biopsies of the terminal ileum. I then slowly withdrew the scope and looked at a ll mucosal surfaces for any abnormalities. There were ulcerations throughout its colon but there were short segments of normal colon as well. In the mid transverse colon was a 5 cm neoplastic-looking mass that was partially obstructing the transverse colon. I continued withdrawing the scope and when it was in the rectum I retroflexed the scope and looked at the distal rectum and up per anal canal. There were ulcerations around the anus and distal rectum as well. I straightened the scope out and removed the scope from his body. Most of the colonic mucosa was without significant edema and the vascularity appeared relatively normal but there were ulcerations throughout his colon. The bowel prep was excellent. After I terminated this procedure, Dr. Clements took over to perform the exploratory laparotomy with bowel resection and and I left the operating room to go to clinic at that time. ADILIA FORMAN MD Dec 10, 2017 09:31
[2017-12-10] MEDS ORDERED: HYDROmorphone HCL 2 MG/ML SDV ONE (10:23)
[2017-12-10] MEDS ORDERED: ACETAMINOPHEN(*)1000 MG/100 ML 100 ML IVPB ONE (12:32)
--- NOTE | 2017-12-10 13:28 | Post Operative Progress Note ---
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 Specimen Removed:(May be N/A): Yes Complications: None Estimated Blood Loss: 50 ml Date OP Note Dictated: Dec 10, 2017 Time OP Note Dictated: 13:28 ZAMZAM REMY MD Dec 10, 2017 13:28
[2017-12-10] MEDS ORDERED: ONDANSETRON 4 MG/2 ML VIAL IVP PRN (13:45)
[2017-12-10] MEDS ORDERED: KCL/DNS 20 MEQ/1000 ML PREMIX 1,000 ML IV SCH (14:00)
--- NOTE | 2017-12-10 15:27 | OPERATIVE REPORT 1 ---
EVENT DATE: December 10, 2017 SURGEON: Vernon Clements MD ANESTHESIOLOGIST: Yogi Arias MD ANESTHESIA: General endotracheal anesthesia. PREOPERATIVE DIAGNOSES 1. Nearly obstructing mass, transverse colon. 2. Inflammatory bowel disease. POSTOPERATIVE DIAGNOSES 1. 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 2. Inflammatory bowel disease, probable Crohn's, though pathology is pending. PROCEDURES PERFORMED 1. Exploratory laparotomy. 2. Extended right colectomy. 3. En tacho resection of the greater curvature of the stomach. 4. Full-thickness resection of the anterior abdominal wall in the supraumbilical midline. 5. Cholecystectomy. 6. End ileostomy. PROCEDURE IN DETAIL Silas was taken to the operating room, placed in the supine position. After induction of adequate general endotracheal anesthesia, Dr. Koroma then proceeded with colonoscopy. This was remarkable for evidence of ulceration and acute inflammation involving the rectum and descending colon, though there did appear to be skip areas. There was an obviously, nearly obstructing mass suspicious for a malignancy. The right colon and terminal ileum were also noted to be inflamed with significant inflammation of the terminal ileum. Following completion of his colonoscopy, he was placed in the supine position. His right arm was tucked and well padded. The left arm was left out on an arm board. The abdomen was then prepped and draped in the usual sterile fashion. After a timeout, attention was then turned to the midline. The patient had received the cefoxitin 2 g preoperatively as well as bowel preparation. Incision was then made from the xiphoid process to an infraumbilical position. This was carried through the skin and subcutaneous tissue. The infraumbilical midline was then incised, and upon entrance into the peritoneal cavity, this mass was noted to be adherent to the anterior abdominal wall in the midline. With this finding and our suspicion that this is a malignancy, the supraumbilical midline abdominal wall was resected en tacho with freeing the adherent tumor from the anterior abdominal wall. A Becky retractor was then placed in the wound. General exploration was then begun. This was remarkable for this large mass invading the anterior abdominal wall. It was also noted to be invading the greater curvature in its mid portion. The small bowel was remarkable for a normal- appearing proximal bowel, though the distal ileum was thickened with creeping fat and evidence of obvious inflammatory bowel disease. The liver was carefully palpated. No masses were noted. The gallbladder was noted to be markedly distended and appeared chronically inflamed. No stones were palpable. Attention was then turned to the right abdomen where the right colon was mobilized by incising the peritoneal reflection along the white line of Toldt. With this incised, the right colon was mobilized. The right ureter was identified and protected. The gastrocolic omentum was then opened in the left side of the upper abdomen. The lesser sac was entered. The colon mass was noted to be invading the greater curvature of the stomach. It was felt that this should be resected en bloc as well. The gastrocolic omentum was then opened adjacent to the prepyloric portion of the stomach. The right gastroepiploic artery was identified, doubly ligated, and divided. This then allowed for exposure of the posterior aspect of the stomach. A GI stapling device with a green load was then used to resect the greater curvature of the stomach to allow for en tacho resection of this tumor. With this performed, this suture line was oversewn with simple running 3-0 Vicryl suture for hemostasis. This was then reinforced with interrupted 3-0 silk Lembert sutures for [id number] apposition. The NG was noted to be in good position. There still appeared to be significant volume of stomach, and in no way was this narrowing the gastric outlet. With this performed, attention was then turned to our proximal margin of resection. The ileum appeared inflamed, and it was felt that further resection of small bowel was ill-advised and that end ileostomy would be performed in light of the significant inflammation. The bowel was divided with a GI stapling device with a blue load. Attention was then turned to the origin of the right colic artery which was doubly ligated and divided at its origin. The vein was also doubly ligated and divided. The hepatic flexure was completely mobilized. The middle colic artery was dissected at its origin and doubly ligated and divided. The vein was also doubly ligated and divided. The mesentery and mesocolon were noted to contain multiple enlarged lymph nodes. A distal margin of resection was then chosen approximately 5 cm from the edge of the tumor. The distal transverse colon was divided with a GI stapling device with a blue load. The remainder of the mesentery was then taken between hemostats, divided, and ligated with silk ligatures. This then freed the specimen which was submitted to Pathology for histologic evaluation. Frozen section checking margins was remarkable for all margins to be clear, though the distal margin was measured at 3 cm. Due to this, additional distal transverse colon was taken with a GI stapling device. This was submitted as true distal margin. The colon was, again, oversewn with a simple running 3-0 Vicryl suture for additional hemostasis, and this was inverted with 3-0 silk Lembert sutures. The distal transverse colon was then marked with 3-0 Prolene sutures for identification at the time of future surgery in hopes that we will be able to reconnect him. The peritoneal cavity was then irrigated with copious amounts of saline. Adequate hemostasis was confirmed. The gallbladder, which was noted to be markedly dilated and chronically inflamed, was then taken out. The peritoneal reflection was incised with a Harmonic scalpel. The cystic artery was then identified, doubly ligated, and divided. The cystic duct was doubly ligated and divided. The gallbladder was removed from the liver bed and submitted to Pathology. Adequate hemostasis was noted to have been achieved. The distal ileum was then brought through the right mid abdominal wall. A circular portion of skin and subcutaneous tissue were excised. The anterior rectus sheath was then incised and the rectus abdominis muscle split. The posterior rectus sheath was then also divided and the distal ileum brought up through this. The ileum was tacked to the abdominal wall with interrupted 3-0 silk sutures. The cut edge of mesentery was sutured to the white line of Toldt, the cut surface of peritoneum with simple running 3-0 Vicryl suture to prevent internal hernia. The peritoneal cavity was then irrigated with copious amounts of saline. Adequate hemostasis was confirmed. The midline fascia was then closed with simple running #1 Prolene suture. Despite the fact that we resected approximately 2-1/2 inches of upper midline abdominal wall, this was able to be closed primarily without significant tension. With the anterior abdominal wall closed, the abdominal wall was infiltrated with 0.5% Marcaine with epinephrine for postop pain relief. The skin and subcutaneous tissue were irrigated. The skin was reapproximated with judie. A sterile towel was placed over the incision, and attention was then turned to maturing the stoma. The bowel was then divided with Bovie cauterization. A [place] type ileostomy was then fashioned with interrupted 3-0 Vicryl sutures. Adequate hemostasis was noted. A stoma appliance was applied. A sterile dressing was applied. Final sponge, needle, and instrument counts were correct times two. The patient tolerated the procedure well this well and was taken to the PACU in stable condition. He will be readmitted to his postsurgical room for continued postoperative care. TINO
[2017-12-10] MEDS: cefOXitin/DEX(*) 1GM/50ML PREM 50 ML IVPB SCH (15:30)
[2017-12-10] MEDS: LR(*) 1000 ML BAG 1,000 ML IV PRN (15:30)
[2017-12-10] MEDS: HYDROmorphone PCA 6 MG/30 ML IV PRN (15:36)
[2017-12-11] MEDS: HYDROmorphone PCA 6 MG/30 ML IV PRN ×3 (02:24→23:23)
[2017-12-11 03:10] VITALS: BP 129/82
[2017-12-11] MEDS: cefOXitin/DEX(*) 1GM/50ML PREM 50 ML IVPB SCH ×4 (06:27→23:02)
[2017-12-11 07:36] VITALS: BP 126/94
[2017-12-11 09:01] LABS: PLATELET COUNT, AUTOMATED 635 K/uL (150-450)
[2017-12-11] MEDS: PANTOPRAZOLE SOD 40 MG IV VIAL IVP SCH (09:19)
[2017-12-11] MEDS: ENOXAPARIN 40 MG/0.4ML SYR SC SCH (09:20)
[2017-12-11] MEDS: LR(*) 1000 ML BAG 1,000 ML IV PRN ×2 (09:38)
[2017-12-11] MEDS ORDERED: IRON SUCROSE 100 MG/5 ML VIAL 200 MG in NS(*) 0.9% 100 ML BAG 100 ML IVPB ONE (10:00)
--- NOTE | 2017-12-11 10:42 | General Surgery Progress Note ---
Subjective Progress Notes Subjective Having expected incisional discomfort, denies nausea. Motivated to get up to chair and to start ambulating today. Physical Exam Vital Signs Date Time Temp Pulse Resp B/P (MAP) Pulse Ox O2 Delivery O2 Flow Rate FiO2 12/11/17 09:16 95 12/11/17 07:36 98.0 75 18 126/94 (105) Nasal Cannula 0.5 Intake and Output 12/11/17 07:00 Intake Total 5850 ml Output Total 1425 ml Balance 4425 ml IV Total 4600 ml Blood Product 1250 ml Output Urine Total 1025 ml Gastric Drainage Total 150 ml Estimated Blood Loss 200 ml Other 50 ml # Voids 1 General Appearance: Alert, Awake, No Acute Distress, Afebrile Neuro: No Gross deficits ENT: Moist Mucous Membranes Cardiovascular: Normal Rhythm & Peripheral Pulses Respiratory: No Respiratory Distress, Clear to Auscultation GI: Other (flat and soft, quiet. Stoma pink with minimal output.) Extremities: Soft and Non Tender Psych: Alert & Oriented X3, Appropriate Mood & Affect Result Diagram: 12/11/17 0000 12/11/17 0526 Monitor Interpretation: Normal Sinus Rhythm Assessment and Plan Problems: (1) Colonic mass Status: Acute Assessment & Plan: Mass is concerning for locally advanced colorectal malignancy. Will start mechanical and chemical bowel prep this evening and plan en bloc resection of this mass in the am. Pre-op colonoscopy would be optimal to rule out synchronous lesion. CEA pending. Type and cross for 2 U PRBCs complete, and will transfuse either tonight or in am/OR depending how bowel prep goes. Proc/risks/benefits discussed in detail with pt. His questions have been answered. Pt understands I will introduce Dr Clements to him in the am who will be his surgeon in the am. 12/10/2017: CT reviewed in detail with radiologist. The descending colon also appears thickened with loss of markings raising question of inflammatory bowel disease. I discussed with the patient the differential diagnosis, the importance of having Dr. Montoya perform colonoscopy prior to proceeding with laparotomy. I discussed the procedure of laparotomy and colectomy with possibility of needing a temporary stoma, as well as the risks and possible complications of surgery. Alicia has had all his questions answered and wishes to proceed with colonoscopy followed by laparotomy and colectomy, and indicated procedures. Informed consent was obtained. 12/10/17 (Dr. Koroma note): I spoke and evaluated the patient along with Dr. Clements and Dr. Ortiz. I discussed performing a colonoscopy on him before his surgery. I explained the procedure to him and he seems to understand and seems agreeable with proceeding with colonoscopy. He has been bowel prepped yesterday and has been NPO overnight. He would like to proceed with colonoscopy immediately prior to his surgery. 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 End ileostomy performed due to obvious severe inflammatory bowel disease (path pending). Will keep NG an d Daven[place] today and start to mobilize. DC antibiotics after today's doses. Leave dressing in place until tomorrow. Preop CEA still pending. Will consult Oncology as soon as pathology is back. Will also await pathology before considering initiation of therapy for Inflammatory bowel disease. (2) Iron deficiency anemia Status: Acute Assessment & Plan: Pt minimally symptomatic, will likely need transfusion attila- operatively. 12/10/2017: Hgb down to 5 after hydration. Two units PRBC's being transfused preoperatively. 12/11/2017: Will administer iron sucrose 200mg today. (3) Severe protein-energy malnutrition Assessment & Plan: 12/11/2017: Albumin less than 2.0, BMI 19, > 15% weight loss. Will start PPN and supplement Albumin. Should be able to start PO in next few days, if not then will need central line and TPN. Check prealbumin in am. Time Spent: > 30 min Exam Sepsis Risk: No Definite Risk Problem Qualifiers (1) Iron deficiency anemia: Iron deficiency anemia type: chronic blood loss Qualified Codes: D50.0 - Iron deficiency anemia secondary to blood loss (chronic) ZAMZAM CLEMENTS MD Dec 11, 2017 10:42
[2017-12-11] MEDS ORDERED: 1: MULTIVITAMINS(*) 10 ML VIAL 10 ML in AMINO ACID/GLYCER/ELECT 3% INF 1,000 ML 2: AMIN IV SCH (11:00)
[2017-12-11] MEDS: ALBUMIN HUMAN 25% 50 ML VIAL 50 ML IVPB SCH ×2 (11:23→17:50)
[2017-12-11] MEDS: 1: MULTIVITAMINS(*) 10 ML VIAL 10 ML in AMINO ACID/GLYCER/ELECT 3% INF 1,000 ML 2: AMIN IV SCH ×2 (12:42→23:24)
[2017-12-11 12:48] VITALS: BP 143/91
[2017-12-11 15:23] VITALS: BP 135/94
[2017-12-11] MEDS: NS(*) 0.9% 250 ML BAG 250 ML IVPB PRN (17:51)
[2017-12-11 21:36] VITALS: BP 125/84
[2017-12-11 23:07] VITALS: BP 117/85
[2017-12-12] MEDS: ALBUMIN HUMAN 25% 50 ML VIAL 50 ML IVPB SCH ×5 (00:34→23:56)
[2017-12-12 05:39] VITALS: BP 130/85
[2017-12-12] MEDS: NS(*) 0.9% 250 ML BAG 250 ML IVPB PRN (06:03)
[2017-12-12 06:29] LABS: PLATELET COUNT, AUTOMATED 555 K/uL (150-450)
[2017-12-12] MEDS: cefOXitin/DEX(*) 1GM/50ML PREM 50 ML IVPB SCH (06:36)
[2017-12-12 08:35] VITALS: BP 127/87
[2017-12-12] MEDS: PANTOPRAZOLE SOD 40 MG IV VIAL IVP SCH (08:52)
[2017-12-12] MEDS: ENOXAPARIN 40 MG/0.4ML SYR SC SCH (08:52)
--- NOTE | 2017-12-12 08:56 | General Surgery Progress Note ---
Subjective Progress Notes Subjective No complaints, slept better Physical Exam Vital Signs Date Time Temp Pulse Resp B/P (MAP) Pulse Ox O2 Delivery O2 Flow Rate FiO2 12/12/17 05:39 98.5 95 16 130/85 (100) 94 Nasal Cannula 0.5 Intake and Output 12/12/17 06:59 Intake Total 3449 ml Output Total 1925 ml Balance 1524 ml IV Total 3449 ml Output Urine Total 1650 ml Stool Total 100 ml Gastric Drainage Total 175 ml General Appearance: Alert, Awake, No Acute Distress, Afebrile Neuro: No Gross deficits ENT: Moist Mucous Membranes Cardiovascular: Normal Rhythm & Peripheral Pulses Respiratory: No Respiratory Distress, Clear to Auscultation (abdomen is soft with expected incisional discomfort, bowel sounds hypoactive, stoma pink, minimal stomal output. Incision clean and dry) Extremities: Soft and Non Tender Psych: Alert & Oriented X3, Appropriate Mood & Affect Result Diagram: 12/12/1751112/12/17511 Monitor Interpretation: Normal Sinus Rhythm Assessment and Plan Problems: (1) Colonic mass Status: Acute Assessment & Plan: Mass is concerning for locally advanced colorectal malignancy. Will start mechanical and chemical bowel prep this evening and plan en bloc resection of this mass in the am. Pre-op colonoscopy would be optimal to rule out synchronous lesion. CEA pending. Type and cross for 2 U PRBCs complete, and will transfuse either tonight or in am/OR depending how bowel prep goes. Proc/risks/benefits discussed in detail with pt. His questions have been answered. Pt understands I will introduce Dr Clements to him in the am who will be his surgeon in the am. 12/10/2017: CT reviewed in detail with radiologist. The descending colon also appears thickened with loss of markings raising question of inflammatory bowel disease. I discussed with the patient the differential diagnosis, the importance of having Dr. Montoya perform colonoscopy prior to proceeding with laparotomy. I discussed the procedure of laparotomy and colectomy with possibility of needing a temporary stoma, as well as the risks and possible complications of surgery. Alicia has had all his questions answered and wishes to proceed with colonoscopy followed by laparotomy and colectomy, and indicated procedures. Informed consent was obtained. 12/10/17 (Dr. Koroma note): I spoke and evaluated the patient along with Dr. Clements and Dr. Ortiz. I discussed performing a colonoscopy on him before his surgery. I explained the procedure to him and he seems to understand and seems agreeable with proceeding with colonoscopy. He has been bowel prepped yesterday and has been NPO overnight. He would like to proceed with colonoscopy immediately prior to his surgery. 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 End ileostomy performed due to obvious severe inflammatory bowel disease (path pending). Will keep NG and [place]en[place] today and start to mobilize. DC antibiotics after today's doses. Leave dressing in place until tomorrow. Preop CEA still pending. Will consult Oncology as soon as pathology is back. Will also await pathology before considering initiation of therapy for Inflammatory bowel disease. 12/12/2017: Silas remains stable, though he has had a rise in his WBC (16K) and Creatinine (1.6). I will check urine analysis and FE Na+, and renal US in light of his known nephrolithiasis. All meds reviewed, cephalosporins are associated with interstial nephritis, I elected to change the Cefoxitin to Flagyl and Levoquin instead of stopping ABX in light of leukocytosis. Continue PPN. continue NG and Davenport today. Encouraged to get OOB and ambulate TID today. Preop CEA still pending. Pathology pending. (2) Iron deficiency anemia Status: Acute Assessment & Plan: Pt minimally symptomatic, will likely need transfusion attila- operatively. 12/10/2017: Hgb down to 5 after hydration. Two units PRBC's being transfused preoperatively. 12/11/2017: Will administer iron sucrose 200mg today. 12/12/2017: Will likely need another dose of iron sucrose later in the week. Will Give Vit B12 IM today in light of his severe IBD involving terminal ileum. Will check reticulocyte count in am. (3) Severe protein-energy malnutrition Assessment & Plan: 12/11/2017: Albumin less than 2.0, BMI 19, > 15% weight loss. Will start PPN and supplement Albumin. Should be able to start PO in next few days, if not then will need central line and TPN. Check prealbumin in am. 12/12/2017: Continue PPN and Albumin supplementation. Check prealbumin. Should be able to start enteral nutrition in next few days. (4) GRIS (acute kidney injury) Status: Acute Assessment & Plan: 12/12/2017: Nonoliguric, creatinine now 1.6. BUN/Cr ratio < 10. Does not appear hypovolemic. Will check urine analysis with smear to look for eosinophils in urine. Check FE Na+, Meds reviewed. Cefoxitin stopped. Check renal ultrasound in light of known nephrolithiasis to rule out obstruction. Time Spent: > 30 min Exam Sepsis Risk: No Definite Risk Problem Qualifiers (1) Iron deficiency anemia: Iron deficiency anemia type: chronic blood loss Qualified Codes: D50.0 - Iron deficiency anemia secondary to blood loss (chronic) ZAMZAM CLEMENTS MD Dec 12, 2017 08:56
[2017-12-12] MEDS: LR(*) 1000 ML BAG 1,000 ML IV PRN (09:06)
[2017-12-12] MEDS ORDERED: CYANOCOBALAMIN 1000MCG/ML VIAL IM ONLY ONE (10:00)
[2017-12-12] MEDS: LEVOFLOXACIN/D5W*500 MG/100 ML 100 ML IVPB SCH (10:33)
--- NOTE | 2017-12-12 12:22 | RADIOLOGY IMAGING REPORT ---
FACILITY: [facility] PATIENT NAME: Silas Morris : 1975 MR: [id number] V: [id number] EXAM DATE: [id number] ORDERING PHYSICIAN: ZAMZAM REMY TECHNOLOGIST: [facility] Patient: Silas Morris : 1975 Visit/Account:[id number] Date of Sevice: 12/12/2017 Study: Frontal and lateral views of the chest Indication: Cough Comparison study: December 10, 2017 Findings: PA and lateral views of the chest demonstrate the presence of pneumoperitoneum. There are s urgical judie overlying the abdomen. Patient appears to be status post recent surgery which would e xplain the pneumoperitoneum. There is no evidence of acute infiltrate. There is no evidence of pleural effusion. There is no evidence of pneumothorax. There is a nasogastric tube present with the tip overlying stomach. The mediastinal, cardiac, and diaphragmatic contours are unremarkable. The visualized bony structures are unremarkable. IMPRESSION: Pneumoperitoneum. Otherwise unremarkable exam. Dr. Remy was notified of these findings at 12:05 PM Report Dictated By: Ger Suresh at 12/12/2017 11:42 AM Report E-Signed By: Ger Suresh at 12/12/2017 12:19 PM WSN:[id number]
[2017-12-12] MEDS: HYDROmorphone PCA 6 MG/30 ML IV PRN (12:25)
[2017-12-12 12:41] VITALS: BP 120/85
[2017-12-12] MEDS: metroNIDAZOLE* 500MG/100ML BAG 100 ML IVPB SCH ×3 (13:06→23:56)
--- NOTE | 2017-12-12 14:14 | RADIOLOGY IMAGING REPORT ---
FACILITY: [facility] PATIENT NAME: Silas Morris : 1975 MR: [id number] V: [id number] EXAM DATE: ORDERING PHYSICIAN: ZAMZAM REMY TECHNOLOGIST: Location: [facility] Patient: Silas Morris : 1975 Visit/Account:[id number] Date of Sevice: 12/12/2017 Examination: Ultrasound of the kidneys and urinary bladder Comparison: CT 12/09/2017. History: elevated Cr and known nephrolithiasis, rule out obstruction. Recent surgery. Findings: Standard ultrasound of the kidneys and urinary bladder is performed. Right kidney: 10.8 x 5.7 x 5.8 cm . Corticomedullary echogenicity is normal. Multiple echogenic and s hadowing stones. Mild right-sided pelvocaliectasis; given differences in modality this is minimally c hanged since the CT. Of note, the stone which was previously present at the ureteropelvic junction is not identified at this location on the current study. Left kidney: 10.6 x 6.1 x 5.4 cm . Cortical echogenicity is normal. Lower pole 2.3 x 3.1 x 2.5 cm exo phytic cyst. Multiple echogenic and shadowing nonobstructing stones. No hydronephrosis. Urinary bladder: Both ureteral jets are present. Prevoid volume is 156 mL; postvoid volume is 105 mL. Visualized aorta and IVC: Patent. Other: Complex free fluid within the posterior pelvis containing a fluid/fluid level. IMPRESSION: 1. Mild right-sided hydronephrosis which appears minimally changed since the CT. The ureteropelvic j unction stone is no longer identified and could possibly be within the ureter; this can be further ev aluated by repeat noncontrast CT if clinically indicated. Of note, a right ureteral jet is present ar guing against the presence of a complete obstruction. 2. Bilateral nonobstructing nephrolithiasis. 3. Complex free fluid in the pelvis; this is favored to be reactive or postoperative but could be fur ther evaluated by repeat CT if clinically indicated. Report Dictated By: Asif Reed MD at 12/12/2017 2:01 PM Report E-Signed By: Asif Reed MD at 12/12/2017 2:10 PM WSN:[id number]
--- NOTE | 2017-12-12 15:27 | Antimicrobial Stewardship ---
Antimicrobial Time Out Antimicrobial Stewardship MD Service: Other (General surgery) Indications: Other (Severe inflammatory bowel disease with possible cancerous mass removed during bowel resection, increased WBC post bowel resection) Antimicrobial Used Originally on Cefoxitin x 2 days but changed to Flagyl and Levaquin on 12/12/17 due to increased WBC count and increases in Scr. Cefoxitin can cause interstial nephritis. Start Date: Dec 10, 2017 Culture Results: N/A Eligible for PO Conversion Eligable for PO Conversion: No (Currently on bowel rest) Comments Comments Patient's Scr has been rising post surgery and Crcl on 12/12/17 was 46.75 ml/min. The current Levaquin dose is 500 mg IV q24hrs and if Scr remains the same tomorrow or increases further, it is recommended that the dose be decreased to 250 mg IV q24h. The change in antibiotics is appropriate due to diagnosis of inflammatory bowel disease and post colon surgery and potential of cefoxitin to cause interstial nephritis. CARMEN COWAN Dec 12, 2017 15:27
[2017-12-12 15:38] VITALS: BP 127/85
[2017-12-12] MEDS: 1: MULTIVITAMINS(*) 10 ML VIAL 10 ML in AMINO ACID/GLYCER/ELECT 3% INF 1,000 ML 2: AMIN IV SCH (17:50)
[2017-12-12 19:45] VITALS: BP 122/87
[2017-12-13] VITALS (8 sets, daily range): BP systolic 115–131; BP diastolic 77–92
[2017-12-13] MEDS: metroNIDAZOLE* 500MG/100ML BAG 100 ML IVPB SCH ×3 (05:17→18:09)
[2017-12-13] MEDS: ALBUMIN HUMAN 25% 50 ML VIAL 50 ML IVPB SCH ×3 (05:17→18:08)
[2017-12-13 06:06] LABS: PLATELET COUNT, AUTOMATED 521 K/uL (150-450)
--- NOTE | 2017-12-13 06:57 | RADIOLOGY IMAGING REPORT ---
FACILITY: [facility] PATIENT NAME: Silas Morris : 1975 MR: [id number] V: [id number] EXAM DATE: ORDERING PHYSICIAN: ZAMZAM REMY TECHNOLOGIST: Location: Patient: Silas Morris : 1975 Visit/Account:[id number] Date of Sevice: 12/13/2017 INDICATION: Evaluate free air after surgery. EXAM DATE: 12/13/2017 5:00 AM COMPARISON: Chest radiograph yesterday. FINDINGS: PA view the chest with upright and spine AP views of the abdomen. The lungs are well-expanded and clear. No pleural effusion or pneumothorax. Heart size is normal. Moderate volume of pneumoperitoneum is likely not significantly changed. Esophagogastric tube termin ates in the stomach. Anastomotic staple lines over the left mid and upper abdomen. Right lower quad rant ostomy. Cutaneous judie in place. No acute osseous abnormality. IMPRESSION: Moderate volume pneumoperitoneum is likely not significantly changed. Report Dictated By: Moise Lopez MD at 12/13/2017 6:50 AM Report E-Signed By: Moise Lopez MD at 12/13/2017 6:52 AM WSN:[id number]
--- NOTE | 2017-12-13 07:05 | General Surgery Progress Note ---
Subjective Progress Notes Subjective Feeling better, slept well, no new complaints Physical Exam Vital Signs Date Time Temp Pulse Resp B/P (MAP) Pulse Ox O2 Delivery O2 Flow Rate FiO2 12/13/17 05:14 98.9 12/13/17 05:13 99 12/13/17 02:48 89 14 131/92 (105) Nasal Cannula 2.0 Intake and Output 12/13/17 07:00 Intake Total 2409 ml Output Total 2220 ml Balance 189 ml IV Total 2409 ml Output Urine Total 1820 ml Gastric Drainage Total 400 ml # Voids 1 General Appearance: Alert, Awake, No Acute Distress, Afebrile Neuro: No Gross deficits ENT: Moist Mucous Membranes Cardiovascular: Regular Rate and Rhythm Respiratory: No Respiratory Distress, Clear to Auscultation GI: Other (abdomen is soft, tender as expected in midline, no peritoneal signs, BS hypoactive, Incision without signs of infection) Extremities: Soft and Non Tender Psych: Alert & Oriented X3, Appropriate Mood & Affect Result Diagram: 12/13/17 0534 12/13/17533 Monitor Interpretation: Normal Sinus Rhythm Assessment and Plan Problems: (1) Colonic mass Status: Acute Assessment & Plan: Mass is concerning for locally advanced colorectal malignancy. Will start mechanical and chemical bowel prep this evening and plan en bloc resection of this mass in the am. Pre-op colonoscopy would be optimal to rule out synchronous lesion. CEA pending. Type and cross for 2 U PRBCs complete, and will transfuse either tonight or in am/OR depending how bowel prep goes. Proc/risks/benefits discussed in detail with pt. His questions have been answered. Pt understands I will introduce Dr Clements to him in the am who will be his surgeon in the am. 12/10/2017: CT reviewed in detail with radiologist. The descending colon also appears thickened with loss of markings raising question of inflammatory bowel disease. I discussed with the patient the differential diagnosis, the importance of having Dr. Montoya perform colonoscopy prior to proceeding with laparotomy. I discussed the procedure of laparotomy and colectomy with possibility of needing a temporary stoma, as well as the risks and possible complications of surgery. Alicia has had all his questions answered and wishes to proceed with colonoscopy followed by laparotomy and colectomy, and indicated procedures. Informed consent was obtained. 12/10/17 (Dr. Koroma note): I spoke and evaluated the patient along with Dr. Clements and Dr. Ortiz. I discussed performing a colonoscopy on him before his surgery. I explained the procedure to him and he seems to understand and seems agreeable with proceeding with colonoscopy. He has been bowel prepped yesterday and has been NPO overnight. He would like to proceed with colonoscopy immedi ately prior to his surgery. 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 End ileostomy performed due to obvious severe inflammatory bowel disease (path pending). Will keep NG and Davenport today and start to mobilize. DC antibiotics after today's doses. Leave dressing in place until tomorrow. Preop CEA still pending. Will consult Oncology as soon as pathology is back. Will also await pathology before considering initiation of therapy for Inflammatory bowel disease. 12/12/2017: Silas remains stable, though he has had a rise in his WBC (16K) and Creatinine (1.6). I will check urine analysis and FE Na+, and renal US in light of his known nephrolithiasis. All meds reviewed, cephalosporins are associated with interstial nephritis, I elected to change the Cefoxitin to Flagyl and Levoquin instead of stopping ABX in light of leukocytosis. Continue PPN. continue NG and Davenport today. Encouraged to get OOB and ambulate TID today. Preop CEA still pending. Pathology pending. 12/13/2017: Continues to slowly improve, Still with leukocytosis but remains afebrile. Creatinine down to 1.4 with good urine output. Work up of GRIS yesterday remarkable for no evidence of obstruction from known nephrolithiasis, urine sediment negative, negative for proteinuria. Still has not opened up with minimal ileostomy output. Will continue Flagyl and Levoquin. Continue NG suction. Continue PPN. Continue to increase mobilization. CEA preop was < 2. Pathology pending. (2) Iron deficiency anemia Status: Acute Assessment & Plan: Pt minimally symptomatic, will likely need transfusion attila- operatively. 12/10/2017: Hgb down to 5 after hydration. Two units PRBC's being transfused preoperatively. 12/11/2017: Will administer iron sucrose 200mg today. 12/12/2017: Will likely need another dose of iron sucrose later in the week. Will Give Vit B12 IM today in light of his severe IBD involving terminal ileum. Will check reticulocyte count in am. 12/13/2017: Will administer another dose of iron sucrose today. Recheck CBC with reticulocyte count in am. (3) Severe protein-energy malnutrition Assessment & Plan: 12/11/2017: Albumin less than 2.0, BMI 19, > 15% weight loss. Will start PPN and supplement Albumin. Should be able to start PO in next few days, if not then will need central line and TPN. Check prealbumin in am. 12/12/2017: Continue PPN and Albumin supplementation. Check prealbumin. Should be able to start enteral nutrition in next few days. 12/13/2017: Continue PPN and Albumin supplementation. Prealbumin pending. Will start enteral nutrition once bowel function returns. (4) GRIS (acute kidney injury) Status: Acute Assessment & Plan: 12/12/2017: Nonoliguric, creatinine now 1.6. BUN/Cr ratio < 10. Does not appear hypovolemic. Will check urine analysis with smear to look for eosinophils in urine. Check FE Na+, Meds reviewed. Cefoxitin stopped. Check renal ultrasound in light of known nephrolithiasis to rule out obs truction. 12/13/2017: Creatinine down to 1.4. Work up negative. Will recheck labs in am. Exam Sepsis Risk: Sepsis Risk Problem Qualifiers (1) Iron deficiency anemia: Iron deficiency anemia type: chronic blood loss Qualified Codes: D50.0 - Iron deficiency anemia secondary to blood loss (chronic) ZAMZAM CLEMENTS MD Dec 13, 2017 07:05
[2017-12-13] MEDS: HYDROmorphone PCA 6 MG/30 ML IV PRN (07:53)
[2017-12-13] MEDS ORDERED: IRON SUCROSE 100 MG/5 ML VIAL 200 MG in NS(*) 0.9% 100 ML BAG 100 ML IVPB ONE (08:00)
[2017-12-13] MEDS: 1: MULTIVITAMINS(*) 10 ML VIAL 10 ML in AMINO ACID/GLYCER/ELECT 3% INF 1,000 ML 2: AMIN IV SCH ×2 (08:48→21:18)
[2017-12-13] MEDS: LEVOFLOXACIN/D5W*500 MG/100 ML 100 ML IVPB SCH (10:03)
[2017-12-13] MEDS: PANTOPRAZOLE SOD 40 MG IV VIAL IVP SCH (10:03)
[2017-12-13] MEDS: ENOXAPARIN 40 MG/0.4ML SYR SC SCH (10:04)
[2017-12-13] MEDS: NS(*) 0.9% 250 ML BAG 250 ML IVPB PRN (11:59)
[2017-12-13] MEDS: LR(*) 1000 ML BAG 1,000 ML IV PRN (12:12)
--- NOTE | 2017-12-13 13:26 | Medical Nutrition Therapy ---
Nutrition Anthropometrics Height (Inches): 66.00 Height (Calculated Centimeters: 167.442635 Weight (Pounds): 120 Weight (Calculated Kilograms): 54.431 BMI: 19.4 Johan Nutrition Score: Probably Inadequate Johan Nutrition Risk Score: 19 Dietary Referral Nutrition Risk Factors: Nutrition Risk Comment: Physical Findings Physical Appearance: low end of normal range Skin Appearance Skin Appearance: Edema Edema Location Modifier: Edema Location: Type of Edema: Degree of Edema: Gastrointestinal Symptoms GI Symtoms: Change in Bowel Pattern Tube Present: NG Bowel Sounds: Recent Bowel Pattern: Stool Characteristics: Nutritional Diagnosis Nutritional Risk Acuity 1: TPN/PPN, Malnutrition Nutritional Risk Acuity 2: Ileostomy Nutritional Risk Acuity 3: Nutrit Anemia Nutritional Acuity: 1-High Nutrition Diagnosis: Inadequate Nutr. Support Nutrition Etiology: Physiological Causes Nutrition Problem/Etiology/Sym: AEB pt recieving 490 kcal, 58gm protein thur PPN and est needs are 2100 kcal and 70gm protein. Energy Requirement: 2100 (M- StJ 1.3 SF) Protein Requirement: 70 (1.3gm/kg) Fluid Requirement: 1900 (35ml/kg) Nutrition Intervention: Incr diet as tolerated Additional Diet Restrictions: encourage high Fe- beef, cold cereal, eggs, peanut butter Nutritional Support Current Enteral / Parental: PPN Rate: 83ml/hr Current Calories: 490 Current Protein: 58 Recommended Enteral / Parental: Tube Feeding Recommended Tube Feeding Formu: Osmolite 1cal/ml-Isotonic Tube Feeding Supplement Streng: Full Recommended Rate: final rate of 85ml/hr + addition 500ml H2O Recommended Duration: 24 Recommended Calories: 2162 Recommended Protein: 90 Nutrition Monitoring & Eval RD Patient Assessment Time: [address] Assessment Type: RD Screen Patient Nutrition Acuity: 3-Mild Follow Up Date: Dec 13, 2017 Nutritional Comment: 12/10 Pt admitted with abd pain and colonic mass. Pt currently NPO for surgery. Pt has Fe def anemia. Will encourage highFe foods when diet advances.Low labs includeL hgb 5.9, Hct 21.2,Alb 3. Elevated creatinine 1.4. Will cont to monitor. 12/13 Pt recieved ileostomy. Pt currently is recieving PPN at 83ml/hr. This is providing 490 kcal and 58g protein which is meeting 23% est kcal and 83% est protein needs. Recommended adding fat to PPN to increase kcal. Increasing PPN to 105m//hr would meet protein needs. Dr reported will change to enteral nutrition when pt has bowel sounds. Osmolite at 85 ml/hr would meet nutritional needs. BMI is in low end of normal range. Talked with pt and he is not reporting any recent wt loss. Will cont to monitor. RONY SR Dec 13, 2017 12:28
--- NOTE | 2017-12-13 16:52 | General Surgery Progress Note ---
Subjective Progress Notes Subjective c/o NGT Physical Exam Vital Signs Date Time Temp Pulse Resp B/P (MAP) Pulse Ox O2 Delivery O2 Flow Rate FiO2 12/13/17 16:15 99 12/13/17 16:15 98.0 12/13/17 14:55 84 18 124/84 (97) Nasal Cannula 1.0 Intake and Output 12/13/17 07:00 Intake Total 2559 ml Output Total 2220 ml Balance 339 ml IV Total 2559 ml Output Urine Total 1820 ml Gastric Drainage Total 400 ml # Voids 1 General Appearance: Alert, Awake, No Acute Distress Cardiovascular: Regular Rate and Rhythm Respiratory: No Respiratory Distress, Clear to Auscultation GI: Other (Abdomen is soft, minimal tenderness, BS hypoactive) Extremities: Soft and Non Tender Result Diagram: 12/13/17 0534 12/13/17 1020 Monitor Interpretation: Normal Sinus Rhythm Assessment and Plan Problems: (1) Colonic mass Status: Acute Assessment & Plan: Mass is concerning for locally advanced colorectal malignancy. Will start mechanical and chemical bowel prep this evening and plan en bloc resection of this mass in the am. Pre-op colonoscopy would be optimal to rule out synchronous lesion. CEA pending. Type and cross for 2 U PRBCs complete, and will transfuse either tonight or in am/OR depending how bowel prep goes. Proc/risks/benefits discussed in detail with pt. His questions have been answered. Pt understands I will introduce Dr Clements to him in the am who will be his surgeon in the am. 12/10/2017: CT reviewed in detail with radiologist. The descending colon also appears thickened with loss of markings raising question of inflammatory bowel disease. I discussed with the patient the differential diagnosis, the importance of having Dr. Montoya perform colonoscopy prior to proceeding with laparotomy. I discussed the procedure of laparotomy and colectomy with possibility of needing a temporary stoma, as well as the risks and possible complications of surgery. Alicia has had all his questions answered and wishes to proceed with colonoscopy followed by laparotomy and colectomy, and indicated procedures. Informed consent was obtained. 12/10/17 (Dr. Koroma note): I spoke and evaluated the patient along with Dr. Clements and Dr. Ortiz. I discussed performing a colonoscopy on him before his surgery. I explained the procedure to him and he seems to understand and seems agreeable with proceeding with colonoscopy. He has been bowel prepped yesterday and has been NPO overnight. He would like to proceed with colonoscopy immediately prior to his surgery. 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 End ileostomy performed due to obvious severe inflammatory bowel disease (path pending). Will keep NG and Davenport today and start to mobilize. DC antibiotics after today's doses. Leave dressing in place until tomorrow. Preop CEA still pending. Will consult Oncology as soon as pathology is back. Will also await pathology before considering initiation of therapy for Inflammatory bowel disease. 12/12/2017: Silas remains stable, though he has had a rise in his WBC (16K) and Creatinine (1.6). I will check urine analysis and FE Na+, and renal US in light of his known nephrolithiasis. All meds reviewed, cephalosporins are associated with interstial nephritis, I elected to change the Cefoxitin to Flagyl and Levoquin instead of stopping ABX in light of leukocytosis. Continue PPN. continue NG and Davenport today. Encouraged to get OOB and ambulate TID today. Preop CEA still pending. Pathology pending. 12/13/2017: Continues to slowly improve, Still with leukocytosis but remains afebrile. Creatinine down to 1.4 with good urine output. Work up of GRIS yesterday remarkable for no evidence of obstruction from known nephrolithiasis, urine sediment negative, negative for proteinuria. Still has not opened up with minimal ileostomy output. Will continue Flagyl and Levoquin. Continue NG suction. Continue PPN. Continue to increase mobilization. CEA preop was < 2. Pathology pending. 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 0/22 lymph nodes. Severe inflammatory bowel disease is also noted. This was not characterized as Crohn's versus ulcerative colitis. only 200 ml of NG output today so I will DC NGT and start sips of clear liquids. Encouraged to get up and ambulate and use IS. Will ask for pathology to be sent out for expert opinion regarding the inflammatory bowel disease. Will need to initiate treatment of the IBD. Continue the Flagyl and L evoquin since this seems to be Crohn's. Hold off on steroids for now. Dr. Jacobson will be taking over for me tomorrow and Dr. Ortiz will return to resume care on Wednesday. (2) Iron deficiency anemia Status: Acute Assessment & Plan: Pt minimally symptomatic, will likely need transfusion attila- operatively. 12/10/2017: Hgb down to 5 after hydration. Two units PRBC's being transfused preoperatively. 12/11/2017: Will administer iron sucrose 200mg today. 12/12/2017: Will likely need another dose of iron sucrose later in the week. Will Give Vit B12 IM today in light of his severe IBD involving terminal ileum. Will check reticulocyte count in am. 12/13/2017: Will administer another dose of iron sucrose today. Recheck CBC with reticulocyte count in am. (3) Severe protein-energy malnutrition Assessment & Plan: 12/11/2017: Albumin less than 2.0, BMI 19, > 15% weight loss. Will start PPN and supplement Albumin. Should be able to start PO in next few days, if not then will need central line and TPN. Check prealbumin in am. 12/12/2017: Continue PPN and Albumin supplementation. Check prealbumin. Should be able to start enteral nutrition in next few days. 12/13/2017: Continue PPN and Albumin supplementation. Prealbumin pending. Will start enteral nutrition once bowel function returns. (4) GRIS (acute kidney injury) Status: Acute Assessment & Plan: 12/12/2017: Nonoliguric, creatinine now 1.6. BUN/Cr ratio < 10. Does not appear hypovolemic. Will check urine analysis with smear to look for eosinophils in urine. Check FE Na+, Meds reviewed. Cefoxitin stopped. Check renal ultrasound in light of known nephrolithiasis to rule out obstruction. 12/13/2017: Creatinine down to 1.4. Work up negative. Will recheck labs in am. Exam Sepsis Risk: No Definite Risk Problem Qualifiers (1) Iron deficiency anemia: Iron deficiency anemia type: chronic blood loss Qualified Codes: D50.0 - Iron deficiency anemia secondary to blood loss (chronic) ZAMZAM CLEMENTS MD Dec 13, 2017 16:52
[2017-12-14] MEDS: ALBUMIN HUMAN 25% 50 ML VIAL 50 ML IVPB SCH ×5 (00:03→23:33)
[2017-12-14] MEDS: metroNIDAZOLE* 500MG/100ML BAG 100 ML IVPB SCH ×5 (00:03→23:33)
[2017-12-14] MEDS: HYDROmorphone PCA 6 MG/30 ML IV PRN (00:03)
[2017-12-14 04:04] VITALS: BP 112/82
[2017-12-14 05:47] LABS: PLATELET COUNT, AUTOMATED 478 K/uL (150-450)
[2017-12-14 08:30] VITALS: BP 108/75
[2017-12-14] MEDS: ENOXAPARIN 40 MG/0.4ML SYR SC SCH (08:43)
[2017-12-14] MEDS: PANTOPRAZOLE SOD 40 MG IV VIAL IVP SCH (08:43)
[2017-12-14] MEDS ORDERED: NS 0.9% IVPB ONE (09:35)
[2017-12-14] MEDS: GABAPENTIN 300 MG CAP PO SCH ×3 (09:35→21:00)
[2017-12-14] MEDS ORDERED: IRON DEXTRAN IVPB ONE (09:35)
--- NOTE | 2017-12-14 09:47 | General Surgery Progress Note ---
Subjective Progress Notes Subjective pain mostly controlled distended reports flatus 200cc ostomy output Physical Exam Vital Signs Date Time Temp Pulse Resp B/P (MAP) Pulse Ox O2 Delivery O2 Flow Rate FiO2 12/14/17 08:50 97 16 12/14/17 08:30 98.4 70 108/75 (86) Nasal Cannula 1.5 Intake and Output 12/14/17 07:00 Intake Total 1700 ml Output Total 1400 ml Balance 300 ml IV Total 1700 ml Output Urine Total 750 ml Stool Total 250 ml Gastric Drainage Total 400 ml # Voids 2 General Appearance: Alert, Awake, No Acute Distress Eyes: PERRLA ENT: Moist Mucous Membranes Cardiovascular: Regular Rate and Rhythm, No Edema Respiratory: No Respiratory Distress GI: Other (distended slighly, incision c/d/i, ostomy is pink and perfused, having some output, attp, no peritoneal signs) Extremities: Soft and Non Tender Result Diagram: 12/14/1751212/14/17512 Monitor Interpretation: Normal Sinus Rhythm Assessment and Plan Problems: (1) Colonic mass Status: Acute Assessment & Plan: Mass is concerning for locally advanced colorectal malignancy. Will start mechanical and chemical bowel prep this evening and plan en bloc resection of this mass in the am. Pre-op colonoscopy would be optimal to rule out synchronous lesion. CEA pending. Type and cross for 2 U PRBCs complete, and will transfuse either tonight or in am/OR depending how bowel prep goes. Proc/risks/benefits discussed in detail with pt. His questions have been answered. Pt understands I will introduce Dr Clements to him in the am who will be his surgeon in the am. 12/10/2017: CT reviewed in detail with radiologist. The descending colon also appears thickened with loss of markings raising question of inflammatory bowel disease. I discussed with the patient the differential diagnosis, the importance of having Dr. Montoya perform colonoscopy prior to proceeding with laparotomy. I discussed the procedure of laparotomy and colectomy with possibility of needing a temporary stoma, as well as the risks and possible c omplications of surgery. Alicia has had all his questions answered and wishes to proceed with colonoscopy followed by laparotomy and colectomy, and indicated procedures. Informed consent was obtained. 12/10/17 (Dr. Koroma note): I spoke and evaluated the patient along with Dr. Clements and Dr. Ortiz. I discussed performing a colonoscopy on him before his surgery. I explained the procedure to him and he seems to understand and seems agreeable with proceeding with colonoscopy. He has been bowel prepped yesterday and has been NPO overnight. He would like to proceed with colonoscopy immediatel y prior to his surgery. 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 End ileostomy performed due to obvious severe inflammatory bowel disease (path pending). Will keep NG and Quiles today and start to mobilize. DC antibiotics after today's doses. Leave dressing in place until tomorrow. Preop CEA still pending. Will consult Oncology as soon as pathology is back. Will also await pathology before considering initiation of therapy for Inflammatory bowel disease. 12/12/2017: Silas remains stable, though he has had a rise in his WBC (16K) and Creatinine (1.6). I will check urine analysis and FE Na+, and renal US in light of his known nephrolithiasis. All meds reviewed, cephalosporins are associated with interstial nephritis, I elected to change the Cefoxitin to Flagyl and Levoquin instead of stopping ABX in light of leukocytosis. Continue PPN. continue NG and Quiles today. Encouraged to get OOB and ambulate TID today. P reop CEA still pending. Pathology pending. 12/13/2017: Continues to slowly improve, Still with leukocytosis but remains afebrile. Creatinine down to 1.4 with good urine output. Work up of GRIS yest erday remarkable for no evidence of obstruction from known nephrolithiasis, urine sediment negative, negative for proteinuria. Still has not opened up with minimal ileostomy output. Will continue Flagyl and Levoquin. Continue NG suction. Continue PPN. Continue to increase mobilization. CEA preop was < 2. Pathology pending. 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 0/22 lymph nodes. Severe inflammatory bowel disease is also noted. This was not characterized as Crohn's versus ulcerative colitis. only 200 ml of NG output today so I will DC NGT and start sips of clear liquids. Encouraged to get up and ambulate and use IS. Will ask for pathology to be sent out for expert opinion regarding the inflammatory bowel disease. Will need to initiate treatment of the IBD. Continue the Flagyl and Levoquin since this seems to be Crohn's. Hold off on steroids for now. Dr. Jacobson will be taking over for me tomorrow and Dr. Ortiz will return to resume care on Wednesday. 12/14/17: POD5 Afebrile and leukocytosis is resolved. GRIS resolving and quiles removed. He is ambulating and tolerating sips, though he seems distended. Cont levaquin and flagyl. Will initiate IBD treatment after he is clinically well from surgery. Added multimodal oral pain regimen today. Abd series ordered to evaluate distension. (2) Iron deficiency anemia Status: Acute Assessment & Plan: Pt minimally symptomatic, will likely need transfusion attila- operatively. 12/10/2017: Hgb down to 5 after hydration. Two units PRBC's being transfused preoperatively. 12/11/2017: Will administer iron sucrose 200mg today. 12/12/2017: Will likely need another dose of iron sucrose later in the week. Will Give Vit B12 IM today in light of his severe IBD involving terminal ileum. Will check reticulocyte count in am. 12/13/2017: Will administer another dose of iron sucrose today. Recheck CBC with reticulocyte count in am. 12/13/2017: administered iron sucrose today. Part of anemia could be dilutional from perioop fluids and fluid resuscitation for treatment of GRIS. (3) Severe protein-energy malnutrition Assessment & Plan: 12/11/2017: Albumin less than 2.0, BMI 19, > 15% weight loss. Will start PPN and supplement Albumin. Should be able to start PO in next few days, if not then will need central line and TPN. Check prealbumin in am. 12/12/2017: Continue PPN and Albumin supplementation. Check prealbumin. Should be able to start enteral nutrition in next few days. 12/13/2017: Continue PPN and Albumin supplementation. Prealbumin pending. Will start enteral nutrition once bowel function returns. 12/14/2017: Advance to full liquid diet and nutritional supplements (4) GRIS (acute kidney injury) Status: Acute Assessment & Plan: 12/12/2017: Nonoliguric, creatinine now 1.6. BUN/Cr ratio < 10. Does not appear hypovolemic. Will check urine analysis with smear to look for eosinophils in urine. Check FE Na+, Meds reviewed. Cefoxitin stopped. Check renal ultrasound in light of known nephrolithiasis to rule out obstruction. 12/13/2017: Creatinine down to 1.4. Work up negative. Will recheck labs in am. 12/14: Cr down to 1.1 Time Spent: > 30 min Exam Sepsis Risk: No Definite Risk Problem Qualifiers (1) Iron deficiency anemia: Iron deficiency anemia type: chronic blood loss Qualified Codes: D50.0 - Iron deficiency anemia secondary to blood loss (chronic) DANA JACOBSON MD Dec 14, 2017 09:47
[2017-12-14] MEDS: 1: MULTIVITAMINS(*) 10 ML VIAL 10 ML in AMINO ACID/GLYCER/ELECT 3% INF 1,000 ML 2: AMIN IV SCH ×2 (10:24→21:06)
[2017-12-14] MEDS: LEVOFLOXACIN/D5W*500 MG/100 ML 100 ML IVPB SCH (10:27)
[2017-12-14] MEDS: ACETAMINOPHEN 500 MG TAB PO SCH ×3 (10:36→23:38)
[2017-12-14 11:13] VITALS: BP 124/95
[2017-12-14] MEDS: LR(*) 1000 ML BAG 1,000 ML IV PRN (12:50)
--- NOTE | 2017-12-14 14:07 | RADIOLOGY IMAGING REPORT ---
FACILITY: [facility] PATIENT NAME: Silas Morris : 1975 MR: [id number] V: [id number] EXAM DATE: ORDERING PHYSICIAN: DANA TOWNSEND TECHNOLOGIST: Location: [facility] Patient: Silas Morris : 1975 Visit/Account:[id number] Date of Sevice: 12/14/2017 Exam type: ACUTE ABDOMEN SERIES 3 VIEW History: distension postop Comparison: December 13, 2017. Findings: A moderate degree of pneumoperitoneum is minimally decreased when compared the prior study. Air-flui d levels are seen in several loops of nondilated large and small bowel. An ostomy ring projects over the right lower quadrant. There are skin judie in midline of the abdomen and pelvis. Surgical st aples also project over the left upper quadrant and left mid abdomen.. Esophagogastric tube has been removed The lungs are free of consolidation. Cardiac swelling is normal IMPRESSION: 1. There is been a subtle decrease in the degree of moderate pneumoperitoneum when compared to werner ovalles's study The esophagogastric tube has been removed Lungs are free of consolidation Report Dictated By: Rubi Peck MD at 12/14/2017 2:00 PM Report E-Signed By: Rubi Peck MD at 12/14/2017 2:04 PM WSN:MARY BETH
[2017-12-14 15:36] VITALS: BP 118/79
[2017-12-14 19:30] VITALS: BP 122/85
[2017-12-14 23:33] VITALS: BP 120/81
[2017-12-15 04:01] VITALS: BP 117/80
[2017-12-15] MEDS: ALBUMIN HUMAN 25% 50 ML VIAL 50 ML IVPB SCH ×4 (05:25→21:27)
[2017-12-15] MEDS: metroNIDAZOLE* 500MG/100ML BAG 100 ML IVPB SCH ×3 (05:26→17:57)
[2017-12-15 08:00] VITALS: BP 121/81
--- NOTE | 2017-12-15 08:44 | General Surgery Progress Note ---
Subjective Progress Notes Subjective no complaints, tolerating clear liquids. Physical Exam Vital Signs Date Time Temp Pulse Resp B/P (MAP) Pulse Ox O2 Delivery O2 Flow Rate FiO2 12/15/17 08:17 97 Room Air 12/15/17 08:12 12 12/15/17 08:00 98.4 80 121/81 (94) 12/15/17 04:01 0.5 Intake and Output 12/15/17 06:59 Intake Total 2470 ml Output Total 2225 ml Balance 245 ml Intake Oral 1120 ml IV Total 1350 ml Output Urine Total 1375 ml Stool Total 850 ml # Voids 1 General Appearance: Alert, Awake, No Acute Distress, Afebrile Neuro: No Gross deficits Cardiovascular: Regular Rate and Rhythm Respiratory: No Respiratory Distress, Clear to Auscultation GI: Soft and Non-Tender, Other (incision CDI, stoma patent RLQ) Extremities: Soft and Non Tender, Warm, Pulses, Perfused Integumentary: Skin Intact without Lesion / Mass Psych: Alert & Oriented X3, Appropriate Mood & Affect Result Diagram: 12/14/1751212/14/17512 Monitor Interpretation: Normal Sinus Rhythm Assessment and Plan Problems: (1) Colonic mass Status: Acute Assessment & Plan: Mass is concerning for locally advanced colorectal malignancy. Will start mechanical and chemical bowel prep this evening and plan en bloc resection of this mass in the am. Pre-op colonoscopy would be optimal to rule out synchronous lesion. CEA pending. Type and cross for 2 U PRBCs complete, and will transfuse either tonight or in am/OR depending how bowel prep goes. Proc/risks/benefits discussed in detail with pt. His questions have been answered. Pt understands I will introduce Dr Clements to him in the am who will be his surgeon in the am. 12/10/2017: CT reviewed in detail with radiologist. The descending colon also appears thickened with loss of markings raising question of inflammatory bowel disease. I discussed with the patient the differential diagnosis, the importance of having Dr. Montoya perform colonoscopy prior to proceeding with laparotomy. I discussed the procedure of laparotomy and colectomy with possibility of needing a temporary stoma, as well as the risks and possible complications of surgery. Alicia has had all his questions answered and wishes to proceed with colonoscopy followed by laparotomy and colectomy, and indicated procedures. Informed consent was obtained. 12/10/17 (Dr. Koroma note): I spoke and evaluated the patient along with Dr. Clements and Dr. Ortiz. I discussed performing a colonoscopy on him before his surgery. I explained the procedure to him and he seems to understand and seems agreeable with proceeding with colonoscopy. He has been bowel prepped yesterday and has been NPO overnight. He would like to proceed with colonoscopy immediately prior to his surgery. 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 End ileostomy performed due to obvious severe inflammatory bowel disease (path pending). Will keep NG and Quiles today and start to mobilize. DC antibiotics after today's doses. Leave dressing in place until tomorrow. Preop CEA still pending. Will consult Oncology as soon as pathology is back. Will also await pathology before considering initiation of therapy for Inflammatory bowel disease. 12/12/2017: Silas remains stable, though he has had a rise in his WBC (16K) and Creatinine (1.6). I will check urine analysis and FE Na+, and renal US in light of his known nephrolithiasis. All meds reviewed, cephalosporins are associated with interstial nephritis, I elected to change the Cefoxitin to Flagyl and Levoquin instead of stopping ABX in light of leukocytosis. Continue PPN. continue NG and Quiles today. Encouraged to get OOB and ambulate TID today. Preop CEA still pending. Pathology pending. 12/13/2017: Continues to slowly improve, Still with leukocytosis but remains afebrile. Creatinine down to 1.4 with good urine output. Work up of GRIS yesterday remarkable for no evidence of obstruction from known nephrolithiasis, urine sediment negative, negative for proteinuria. Still has not opened up with minimal ileostomy output. Will continue Flagyl and Levoquin. Continue NG suction. Continue PPN. Continue to increase mobilization. CEA preop was < 2. Pathology pending. 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 0/22 lymph nodes. Severe inflammatory bowel disease is also noted. This was not characterized as Crohn's versus ulcerative colitis. only 200 ml of NG output today so I will DC NGT and start sips of clear liquids. Encouraged to get up and ambulate and use IS. Will ask for pathology to be sent out for expert opinion regarding the inflammatory bowel disease. Will need to initiate treatment of the IBD. Continue the Flagyl and Levoquin since this seems to be Crohn's. Hold off on steroids for now. Dr. Jacobson will be taking over for me tomorrow and Dr. Ortiz will return to resume care on Wednesday. 12/14/17: POD5 Afebrile and leukocytosis is resolved. GRIS resolving and quiles removed. He is ambulating and tolerating sips, though he seems distended. Cont levaquin and flagyl. Will initiate IBD treatment after he is clinically well from surgery. Added multimodal oral pain regimen today. Abd series ordered to evaluate distension. 12/15/2017 POD#5 stable progress, adv to full liquids with PO protein supplements. Cont PPN. Will likely DC antibiotics next 24-48 hours. Oncology consult as path is finalized. Cont stoma teaching. (2) Iron deficiency anemia Status: Acute Assessment & Plan: Pt minimally symptomatic, will likely need transfusion attila-operatively. 12/10/2017: Hgb down to 5 after hydration. Two units PRBC's being transfused preoperatively. 12/11/2017: Will administer iron sucrose 200mg today. 12/12/2017: Will likely need another dose of iron sucrose later in the week. Will Give Vit B12 IM today in light of his severe IBD involving terminal ileum. Will check reticulocyte count in am. 12/13/2017: Will administer another dose of iron sucrose today. Recheck CBC with reticulocyte count in am. 12/13/2017: administered iron sucrose today. Part of anemia could be dilutional from perioop fluids and fluid resuscitation for treatment of GRIS. 12/15/2017 Hct stable, asymptomatic. Cont to follow. (3) Severe protein-energy malnutrition Assessment & Plan: 12/11/2017: Albumin less than 2.0, BMI 19, > 15% weight loss. Will start PPN and supplement Albumin. Should be able to start PO in next few days, if not then will need central line and TPN. Check prealbumin in am. 12/12/2017: Continue PPN and Albumin supplementation. Check prealbumin. Should be able to start enteral nutrition in next few days. 12/13/2017: Continue PPN and Albumin supplementation. Prealbumin pending. Will start enteral nutrition once bowel function returns. 12/14/2017: Advance to full liquid diet and nutritional supplements 12/15/2017 plan as above. Cont PPN. (4) GRIS (acute kidney injury) Status: Acute Assessment & Plan: 12/12/2017: Nonoliguric, creatinine now 1.6. BUN/Cr ratio < 10. Does not appear hypovolemic. Will check urine analysis with smear to look for eosinophils in urine. Check FE Na+, Meds reviewed. Cefoxitin stopped. Check renal ultrasound in light of known nephrolithiasis to rule out obstruction. 12/13/2017: Creatinine down to 1.4. Work up negative. Will recheck labs in am. 12/14: Cr down to 1.1 12/15/2017 improved, cont to follow UOP and creat closely. Time Spent: > 30 min Exam Sepsis Risk: No Definite Risk Problem Qualifiers (1) Iron deficiency anemia: Iron deficiency anemia type: chronic blood loss Qualified Codes: D50.0 - Iron deficiency anemia secondary to blood loss (chronic) ARTUR ORTIZ MD Dec 15, 2017 08:44
[2017-12-15] MEDS: ACETAMINOPHEN 500 MG TAB PO SCH ×2 (09:00→17:00)
[2017-12-15] MEDS: GABAPENTIN 300 MG CAP PO SCH ×3 (09:00→21:27)
[2017-12-15] MEDS: PANTOPRAZOLE SOD 40 MG IV VIAL IVP SCH (09:20)
[2017-12-15] MEDS: ENOXAPARIN 40 MG/0.4ML SYR SC SCH (09:20)
[2017-12-15] MEDS: LEVOFLOXACIN/D5W*500 MG/100 ML 100 ML IVPB SCH (09:20)
[2017-12-15] MEDS: 1: MULTIVITAMINS(*) 10 ML VIAL 10 ML in AMINO ACID/GLYCER/ELECT 3% INF 1,000 ML 2: AMIN IV SCH ×2 (09:20→21:27)
[2017-12-15] MEDS: HYDROmorphone PCA 6 MG/30 ML IV PRN (10:13)
[2017-12-15 10:41] VITALS: BP 115/79
--- NOTE | 2017-12-15 12:55 | Medical Nutrition Therapy ---
Nutrition Anthropometrics Height (Inches): 66.00 Height (Calculated Centimeters: 167.755575 Weight (Pounds): 120 Weight (Calculated Kilograms): 54.431 BMI: 19.4 Johan Nutrition Score: Very Poor Johan Nutrition Risk Score: 18 Dietary Referral Nutrition Risk Factors: Nutrition Risk Comment: Physical Findings Physical Appearance: low end of normal range Skin Appearance Skin Appearance: Edema Edema Location Modifier: Edema Location: Type of Edema: Degree of Edema: Gastrointestinal Symptoms GI Symtoms: Change in Bowel Pattern Tube Present: NG Bowel Sounds: Recent Bowel Pattern: Stool Characteristics: Nutritional Diagnosis Nutritional Risk Acuity 1: TPN/PPN, Malnutrition Nutritional Risk Acuity 2: Ileostomy Nutritional Risk Acuity 3: Nutrit Anemia Nutritional Acuity: 1-High Nutrition Diagnosis: Inadequate Nutr. Support Nutrition Etiology: Physiological Causes Nutrition Problem/Etiology/Sym: AEB pt recieving 490 kcal, 58gm protein thur PPN and est needs are 2100 kcal and 70gm protein. Energy Requirement: 2100 (M- StJ 1.3 SF) Protein Requirement: 70 (1.3gm/kg) Fluid Requirement: 1900 (35ml/kg) Diet Type: Medical Liquid/GI soft Nutrition Intervention: Between meal supplement, Incr diet as tolerated Food Likes: encourage high Fe- beef, cold cereal, eggs, peanut butter Additional Diet Restrictions: PUT PROTEIN POWDER IN APPROPRIATE FOODS Diet Comment To [facility]: OFFER NUTR SUPPLMENTS WITH EACH MEAL Nutritional Support Current Enteral / Parental: PPN Rate: 83ml/hr Current Calories: 490 Current Protein: 58 Tube Feeding Supplement Streng: Full Nutrition Monitoring & Eval Nutrition Goals: Eat 75-100% Meal RD Patient Assessment Time: [address] Assessment Type: RD Re-Assessment Patient Nutrition Acuity: 1-High Follow Up Date: Dec 17, 2017 Nutritional Comment: 12/10 Pt admitted with abd pain and colonic mass. Pt currently NPO for surgery. Pt has Fe def anemia. Will encourage highFe foods when diet advances.Low labs includeL hgb 5.9, Hct 21.2,Alb 3. Elevated creatinine 1.4. Will cont to monitor. 12/13 Pt recieved ileostomy. Pt currently is recieving PPN at 83ml/hr. This is providing 490 kcal and 58g protein which is meeting 23% est kcal and 83% est protein needs. Recommended adding fat to PPN to increase kcal. Increasing PPN to 105m//hr would meet protein needs. Dr reported will change to enteral nutrition when pt has bowel sounds. Osmolite at 85 ml/hr would meet nutritional needs. BMI is in low end of normal range. Talked with pt and he is not reporting any recent wt loss. Will cont to monitor. MIS 12/15 Pt cont on PPN at 83ml/hr but diet has increased to med liquid. Will provide nutritional supplement tid plus put protein powder in appropriate food to increase kcal and protein intake. alb cont low but has increased to 2.8. Prealb very low at 5.7. Will cont to monitor and encourage intake. RONY SR Dec 15, 2017 12:55
[2017-12-15 14:07] VITALS: BP 114/82
[2017-12-15] MEDS: LR(*) 1000 ML BAG 1,000 ML IV PRN (15:27)
[2017-12-15 19:40] VITALS: BP 117/84
[2017-12-16] MEDS: metroNIDAZOLE* 500MG/100ML BAG 100 ML IVPB SCH ×2 (00:22→05:39)
[2017-12-16] MEDS: ACETAMINOPHEN 500 MG TAB PO SCH ×3 (00:22→16:43)
[2017-12-16 00:26] VITALS: BP 114/77
[2017-12-16] MEDS: ALBUMIN HUMAN 25% 50 ML VIAL 50 ML IVPB SCH ×2 (02:29→09:35)
[2017-12-16] MEDS: NS(*) 0.9% 250 ML BAG 250 ML IVPB PRN (02:29)
[2017-12-16 04:14] VITALS: BP 111/74
--- NOTE | 2017-12-16 08:17 | General Surgery Progress Note ---
Subjective Progress Notes Subjective feels good, passed loose stool per rectum overnight, no NV Physical Exam Vital Signs Date Time Temp Pulse Resp B/P (MAP) Pulse Ox O2 Delivery O2 Flow Rate FiO2 12/16/17 06:24 12 93 12/16/17 04:14 98.0 68 111/74 (86) Room Air 12/15/17 04:01 0.5 Intake and Output 12/16/17 07:00 Intake Total 2620 ml Output Total 1500 ml Balance 1120 ml Intake Oral 960 ml IV Total 1660 ml Blood Product 0 ml Output Urine Total 0 ml Stool Total 1500 ml Other 0 ml # Voids 4 # Bowel Movements 2 General Appearance: Alert, Awake, No Acute Distress, Afebrile Neuro: No Gross deficits Cardiovascular: Normal Rhythm & Peripheral Pulses, Regular Rate and Rhythm, No Edema, No JVD Respiratory: No Respiratory Distress, Clear to Auscultation GI: Soft and Non-Tender, Other (pink stoma patent RLQ) Musculoskeletal: No Weakness/Pain Extremities: Soft and Non Tender, Warm, Pulses, Perfused Integumentary: Skin Intact without Lesion / Mass Psych: Alert & Oriented X3, Appropriate Mood & Affect Result Diagram: 12/14/1751212/14/17512 Monitor Interpretation: Normal Sinus Rhythm Assessment and Plan Problems: (1) Colonic mass Status: Acute Assessment & Plan: Mass is concerning for locally advanced colorectal malignancy. Will start mechanical and chemical bowel prep this evening and plan en bloc resection of this mass in the am. Pre-op colonoscopy would be optimal to rule out synchronous lesion. CEA pending. Type and cross for 2 U PRBCs complete, and will transfuse either tonight or in am/OR depending how bowel prep goes. Proc/risks/benefits discussed in detail with pt. His questions have been answe red. Pt understands I will introduce Dr Clements to him in the am who will be his surgeon in the am. 12/10/2017: CT reviewed in detail with radiologist. The descending colon also appears thickened with loss of markings raising question of inflammatory bowel disease. I discussed with the patient the differential diagnosis, the importance of having Dr. Montoya perform colonoscopy prior to proceeding with laparotomy. I discussed the procedure of laparotomy and colectomy with possibility of needing a temporary stoma, as well as the risks and possible complications of surgery. Alicia has had all his questions answered and wishes to proceed with colonoscopy followed by laparotomy and colectomy, and indicated procedures. Informed consent was obtained. 12/10/17 (Dr. Koroma note): I spoke and evaluated the patient along with Dr. Clements and Dr. Ortiz. I discussed performing a colonoscopy on him before his surgery. I explained the procedure to him and he seems to understand and seems agreeable with proceeding with colonoscopy. He has been bowel prepped yesterday and has been NPO overnight. He would like to proceed with colonoscopy immediately prior to his surgery. 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 End ileostomy performed due to obvious severe inflammatory bowel disease (path pending). Will keep NG and Quiles today and start to mobilize. DC antibiotics after today's doses. Leave dressing in place until tomorrow. Preop CEA still pending. Will consult Oncology as soon as pathology is back. Will also await pathology before considering initiation of therapy for Inflammatory bowel disease. 12/12/2017: Silas remains stable, though he has had a rise in his WBC (16K) and Creatinine (1.6). I will check urine analysis and FE Na+, and renal US in light of his known nephrolithiasis. All meds reviewed, cephalosporins are associated with interstial nephritis, I elected to change the Cefoxitin to Flagyl and Levoquin instead of stopping ABX in light of leukocytosis. Continue PPN. continue NG and Quiles today. Encouraged to get OOB and ambulate TID today. Preop CEA still pending. Pathology pending. 12/13/2017: Continues to slowly improve, Still with leukocytosis but remains afebrile. Creatinine down to 1.4 with good urine output. Work up of GRIS yesterday remarkable for no evidence of obstruction from known nephrolithiasis, urine sediment negative, negative for proteinuria. Still has not opened up with minimal ileostomy output. Will continue Flagyl and Levoquin. Continue NG suction. Continue PPN. Continue to increase mobilization. CEA preop was < 2. Pathology pending. 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 0/22 lymph nodes. Severe inflammatory bowel disease is also noted. This was not characterized as Crohn's versus ulcerative colitis. only 200 ml of NG output today so I will DC NGT and start sips of clear liquids. Encouraged to get up and ambulate and use IS. Will ask for pathology to be sent out for expert opinion regarding the inflammatory bowel disease. Will need to initiate treatment of the IBD. Continue the Flagyl and Levoquin since this seems to be Crohn's. Hold off on steroids for now. Dr. Jacobson will be taking over for me tomorrow and Dr. Ortiz will return to resume care on Wednesday. 12/14/17: POD5 Afebrile and leukocytosis is resolved. GRIS resolving and quiles rem teresita. He is ambulating and tolerating sips, though he seems distended. Cont levaquin and flagyl. Will initiate IBD treatment after he is clinically well from surgery. Added multimodal oral pain regimen today. Abd series ordered to evaluate distension. 12/15/2017 POD#5 stable progress, adv to full liquids with PO protein supplements. Cont PPN. Will likely DC antibiotics next 24-48 hours. Oncology consult as path is finalized. Cont stoma teaching. 12/16/2017 POD #6 stable progress, DC antibiotics. Cont PPN. Cont stoma teaching. Will need GI consult for treatment IBD. Oncology consult pending. (2) Iron deficiency anemia Status: Acute Assessment & Plan: Pt minimally symptomatic, will likely need transfusion attila-operatively. 12/10/2017: Hgb down to 5 after hydration. Two units PRBC's being transfused preoperatively. 12/11/2017: Will administer iron sucrose 200mg today. 12/12/2017: Will likely need another dose of iron sucrose later in the week. Will Give Vit B12 IM today in light of his severe IBD involving terminal ileum. Will check reticulocyte count in am. 12/13/2017: Will administer another dose of iron sucrose today. Recheck CBC with reticulocyte count in am. 12/13/2017: administered iron sucrose today. Part of anemia could be dilutional from perioop fluids and fluid resuscitation for treatment of GRIS. 12/15/2017 Hct stable, asymptomatic. Cont to follow. (3) Severe protein-energy malnutrition Assessment & Plan: 12/11/2017: Albumin less than 2.0, BMI 19, > 15% weight loss. Will start PPN and supplement Albumin. Should be able to start PO in next few days, if not then will need central line and TPN. Check prealbumin in am. 12/12/2017: Continue PPN and Albumin supplementation. Check prealbumin. Should be able to start enteral nutrition in next few days. 12/13/2017: Continue PPN and Albumin supplementation. Prealbumin pending. Will start enteral nutrition once bowel function returns. 12/14/2017: Advance to full liquid diet and nutritional supplements 12/15/2017 plan as above. Cont PPN. (4) GRIS (acute kidney injury) Status: Acute Assessment & Plan: 12/12/2017: Nonoliguric, creatinine now 1.6. BUN/Cr ratio < 10. Does not appear hypovolemic. Will check urine analysis with smear to look for eosinophils in urine. Check FE Na+, Meds reviewed. Cefoxitin stopped. Check renal ultrasound in light of known nephrolithiasis to rule out obstruction. 12/13/2017: Creatinine down to 1.4. Work up negative. Will recheck labs in am. 12/14: Cr down to 1.1 12/15/2017 improved, cont to follow UOP and creat closely. Time Spent: > 30 min Exam Sepsis Risk: No Definite Risk Problem Qualifiers (1) Iron deficiency anemia: Iron deficiency anemia type: chronic blood loss Qualified Codes: D50.0 - Iron deficiency anemia secondary to blood loss (chronic) ARTUR ORTIZ MD Dec 16, 2017 08:17
[2017-12-16] MEDS: GABAPENTIN 300 MG CAP PO SCH ×3 (09:33→21:11)
[2017-12-16] MEDS: LEVOFLOXACIN/D5W*500 MG/100 ML 100 ML IVPB SCH (09:34)
[2017-12-16] MEDS: ENOXAPARIN 40 MG/0.4ML SYR SC SCH (09:34)
[2017-12-16] MEDS: 1: MULTIVITAMINS(*) 10 ML VIAL 10 ML in AMINO ACID/GLYCER/ELECT 3% INF 1,000 ML 2: AMIN IV SCH ×2 (09:34→23:19)
[2017-12-16 14:40] VITALS: BP 121/92
[2017-12-16] MEDS: oxyCODONE HCL 5 MG CAP PO PRN ×2 (18:48→23:30)
[2017-12-16 19:39] VITALS: BP 115/83
[2017-12-16] MEDS ORDERED: [UNRECOGNIZED DRUG - NUTRITION] IV ONE (21:27)
[2017-12-16 22:50] VITALS: BP 128/87
[2017-12-17] MEDS: ACETAMINOPHEN 500 MG TAB PO SCH ×3 (00:59→17:33)
[2017-12-17 04:06] VITALS: BP 127/91
[2017-12-17 06:01] LABS: PLATELET COUNT, AUTOMATED 608 K/uL (150-450)
--- NOTE | 2017-12-17 07:41 | General Surgery Progress Note ---
Subjective Progress Notes Subjective no complaints, feels good. Learning stoma care, up in halls with walker. Physical Exam Vital Signs Date Time Temp Pulse Resp B/P (MAP) Pulse Ox O2 Delivery O2 Flow Rate FiO2 12/17/17 04:06 97.9 68 18 127/91 (103) 95 Room Air 12/15/17 04:01 0.5 Intake and Output 12/17/17 07:00 Intake Total 1800 ml Output Total 550 ml Balance 1250 ml Intake Oral 0 ml IV Total 1800 ml Stool Total 550 ml # Voids 4 # Bowel Movements 4 General Appearance: Alert, Awake, No Acute Distress, Afebrile Cardiovascular: Normal Rhythm & Peripheral Pulses Respiratory: No Respiratory Distress, Clear to Auscultation GI: Soft and Non-Tender, Other (incision CDI, stoma patent.) Musculoskeletal: No Weakness/Pain Extremities: Soft and Non Tender, Warm, Pulses, Perfused Integumentary: Skin Intact without Lesion / Mass Psych: Alert & Oriented X3, Appropriate Mood & Affect Result Diagram: 12/17/17 0530 12/17/17 0530 Monitor Interpretation: Normal Sinus Rhythm Assessment and Plan Problems: (1) Colonic mass Status: Acute Assessment & Plan: Mass is concerning for locally advanced colorectal malignancy. Will start mechanical and chemical bowel prep this evening and plan en bloc resection of this mass in the am. Pre-op colonoscopy would be optimal to rule out synchronous lesion. CEA pending. Type and cross for 2 U PRBCs complete, and will transfuse either tonight or in am/OR depending how bowel prep goes. Proc/risks/benefits discussed in detail with pt. His questions have been answered. Pt understands I will introduce Dr Clements to him in the am who will be his surgeon in the am. 12/10/2017: CT reviewed in detail with radiologist. The descending colon also appears thickened with loss of markings raising question of inflammatory bowel disease. I discussed with the patient the differential diagnosis, the importance of having Dr. Montoya perform colonoscopy prior to proceeding with laparotomy. I discussed the procedure of laparotomy and colectomy with possibility of needing a temporary stoma, as well as the risks and possible complications of surgery. Alicia has had all his questions answered and wishes to proceed with colonoscopy followed by laparotomy and colectomy, and indicated procedures. Informed consent was obtained. 12/10/17 (Dr. Ga note): I spoke and evaluated the patient along with Dr. Clements and Dr. Ortiz. I discussed performing a colonoscopy on him before his surgery. I explained the procedure to him and he seems to understand and seems agreeable with proceeding with colonoscopy. He has been bowel prepped yesterday and has been NPO overnight. He would like to proceed with colonoscopy immediat zoë prior to his surgery. 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 End ileostomy performed due to obvious severe inflammatory bowel disease (path pending). Will keep NG and Quiles today and start to mobilize. DC antibiotics after today's doses. Leave dressing in place until tomorrow. Preop CEA still pending. Will consult Oncology as soon as pathology is back. Will also await pathology before considering initiation of therapy for Inflammatory bowel disease. 12/12/2017: Silas remains stable, though he has had a rise in his WBC (16K) and Creatinine (1.6). I will check urine analysis and FE Na+, and renal US in light of his known nephrolithiasis. All meds reviewed, cephalosporins are associated with interstial nephritis, I elected to change the Cefoxitin to Flagyl and Levoquin instead of stopping ABX in light of leukocytosis. Continue PPN. continue NG and Quiles today. Encouraged to get OOB and ambulate TID today. Preop CEA still pending. Pathology pending. 12/13/2017: Continues to slowly improve, Still with leukocytosis but remains afebrile. Creatinine down to 1.4 with good urine output. Work up of GRIS ye sterday remarkable for no evidence of obstruction from known nephrolithiasis, urine sediment negative, negative for proteinuria. Still has not opened up with minimal ileostomy output. Will continue Flagyl and Levoquin. Continue NG suction. Continue PPN. Continue to increase mobilization. CEA preop was < 2. Pathology pending. 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 0/22 lymph nodes. Severe inflammatory bowel disease is also noted. This was not characterized as Crohn's versus ulcerative colitis. only 200 ml of NG output today so I will DC NGT and start sips of clear liquids. Encouraged to get up and ambulate and use IS. Will ask for pathology to be sent out for expert opinion regarding the inflammatory bowel disease. Will need to initiate treatment of the IBD. Continue the Flagyl and Levoquin since this seems to be Crohn's. Hold off on steroids for now. Dr. Jacobson will be taking over for me tomorrow and Dr. Ortiz will return to resume care on Wednesday. 12/14/17: POD5 Afebrile and leukocytosis is resolved. GRIS resolving and quiles removed. He is ambulating and tolerating sips, though he seems distended. Cont levaquin and flagyl. Will initiate IBD treatment after he is clinically well fr om surgery. Added multimodal oral pain regimen today. Abd series ordered to evaluate distension. 12/15/2017 POD#5 stable progress, adv to full liquids with PO protein supplements. Cont PPN. Will likely DC antibiotics next 24-48 hours. Oncology consult as path is finalized. Cont stoma teaching. 12/16/2017 POD #6 stable progress, DC antibiotics. Cont PPN. Cont stoma teaching. Will need GI consult for treatment IBD. Oncology consult pending. 12/17/2017 POD#7 continues to improve manuel daily basis. Felling more comfortable with stoma care. Appt with Oncology Dr Leal 12/31/2017. DC PPN and follow UOP closely with high stoma output. (2) Iron deficiency anemia Status: Acute Assessment & Plan: Pt minimally symptomatic, will likely need transfusion attila- operatively. 12/10/2017: Hgb down to 5 after hydration. Two units PRBC's being transfused preoperatively. 12/11/2017: Will administer iron sucrose 200mg today. 12/12/2017: Will likely need another dose of iron sucrose later in the week. Will Give Vit B12 IM today in light of his severe IBD involving terminal ileum. Will check reticulocyte count in am. 12/13/2017: Will administer another dose of iron sucrose today. Recheck CBC with reticulocyte count in am. 12/13/2017: administered iron sucrose today. Part of anemia could be dilutional from perioop fluids and fluid resuscitation for treatment of GRIS. 12/15/2017 Hct stable, asymptomatic. Cont to follow. 12/17/2017: Hct stable. No further transfusion or iron needed. (3) Severe protein-energy malnutrition Assessment & Plan: 12/11/2017: Albumin less than 2.0, BMI 19, > 15% weight loss. Will start PPN and supplement Albumin. Should be able to start PO in next few days, if not then will need central line and TPN. Check prealbumin in am. 12/12/2017: Continue PPN and Albumin supplementation. Check prealbumin. Should be able to start enteral nutrition in next few days. 12/13/2017: Continue PPN and Albumin supplementation. Prealbumin pending. Will start enteral nutrition once bowel function returns. 12/14/2017: Advance to full liquid diet and nutritional supplements 12/15/2017 plan as above. Cont PPN. 12/17/2017: repeat pre-albumin pending, DC PPN today. (4) GRIS (acute kidney injury) Status: Acute Assessment & Plan: 12/12/2017: Nonoliguric, creatinine now 1.6. BUN/Cr ratio < 10. Does not appear hypovolemic. Will check urine analysis with smear to look for eosinophils in urine. Check FE Na+, Meds reviewed. Cefoxitin stopped. Check renal ultrasound in light of known nephrolithiasis to rule out obstruction. 12/13/2017: Creatinine down to 1.4. Work up negative. Will recheck labs in am. 12/14: Cr down to 1.1 12/15/2017 improved, cont to follow UOP and creat closely. 12/17/2017: creat 0.8 with adequate UOP, cont to follow closely. Time Spent: > 30 min Exam Sepsis Risk: No Definite Risk Problem Qualifiers (1) Iron deficiency anemia: Iron deficiency anemia type: chronic blood loss Qualified Codes: D50.0 - Iron deficiency anemia secondary to blood loss (chronic) ARTUR ORTIZ MD Dec 17, 2017 07:41
[2017-12-17 07:43] VITALS: BP 123/88
--- NOTE | 2017-12-17 09:05 | Medical Nutrition Therapy ---
Nutrition Anthropometrics Height (Inches): 66.00 Height (Calculated Centimeters: 167.514846 Weight (Pounds): 120 Weight (Calculated Kilograms): 54.431 BMI: 19.4 Johan Nutrition Score: Very Poor Johan Nutrition Risk Score: 18 Dietary Referral Nutrition Risk Factors: Nutrition Risk Comment: Physical Findings Physical Appearance: low end of normal range Skin Appearance Skin Appearance: Edema Edema Location Modifier: Edema Location: Type of Edema: Degree of Edema: Gastrointestinal Symptoms GI Symtoms: Change in Bowel Pattern Tube Present: NG Bowel Sounds: Recent Bowel Pattern: Stool Characteristics: Nutritional Diagnosis Nutritional Risk Acuity 1: Malnutrition Nutritional Risk Acuity 2: Ileostomy Nutritional Risk Acuity 3: Nutrit Anemia Nutritional Acuity: 1-High Nutrition Diagnosis: Inadequate Food Intake Nutrition Etiology: Physiological Causes Nutrition Problem/Etiology/Sym: AEB pt consuming 75- 100% of small protions. Energy Requirement: 2100 (M- StJ 1.3 SF) Protein Requirement: 70 (1.3gm/kg) Fluid Requirement: 1900 (35ml/kg) Diet Type: Medical Liquid/GI soft Nutrition Intervention: Between meal supplement, Incr diet as tolerated Food Likes: encourage high Fe- beef, cold cereal, eggs, peanut butter Additional Diet Restrictions: PUT PROTEIN POWDER IN APPROPRIATE FOODS Diet Comment To [facility]: OFFER NUTR SUPPLMENTS WITH EACH MEAL Nutrition Monitoring & Eval RD Patient Assessment Time: [address] Assessment Type: RD Re-Assessment Patient Nutrition Acuity: 1-High Follow Up Date: Dec 20, 2017 Nutritional Comment: 12/10 Pt admitted with abd pain and colonic mass. Pt currently NPO for surgery. Pt has Fe def anemia. Will encourage highFe foods when diet advances.Low labs includeL hgb 5.9, Hct 21.2,Alb 3. Elevated creatinine 1.4. Will cont to monitor. 12/13 Pt recieved ileostomy. Pt currently is recieving PPN at 83ml/hr. This is providing 490 kcal and 58g protein which is meeting 23% est kcal and 83% est protein needs. Recommended adding fat to PPN to increase kcal. Increasing PPN to 105m//hr would meet protein needs. reported will change to enteral nutrition when pt has bowel sounds. Osmolite at 85 ml/hr would meet nutritional needs. BMI is in low end of normal range. Talked with pt and he is not reporting any recent wt loss. Will cont to monitor. BK 12/15 Pt cont on PPN at 83ml/hr but diet has increased to med liquid. Will provide nutritional supplement tid plus put protein powder in appropriate food to increase kcal and protein intake. alb cont low but has increased to 2.8. Prealb very low at 5.7. Will cont to monitor and encourage intake. BK 12/17 Pt cont on med liquid/GI soft diet and is eating 75- 100% . PPN has d/diana. Alb improved to 3.5, pending new prealb. BUN/creatinine is WNR. Will cont protein powder in appropriate foods and offer nutritional supplments. Will cont to monitor and encourage intake. RONY SR Dec 17, 2017 09:05
[2017-12-17] MEDS: ENOXAPARIN 40 MG/0.4ML SYR SC SCH (09:11)
[2017-12-17] MEDS: GABAPENTIN 300 MG CAP PO SCH ×3 (09:12→21:25)
[2017-12-17] MEDS: 1: MULTIVITAMINS(*) 10 ML VIAL 10 ML in AMINO ACID/GLYCER/ELECT 3% INF 1,000 ML 2: AMIN IV SCH (10:37)
[2017-12-17 11:15] VITALS: BP 117/88
[2017-12-17 15:20] VITALS: BP 120/90
[2017-12-17 19:27] VITALS: BP 107/81
[2017-12-18] VITALS (7 sets, daily range): BP systolic 115–126; BP diastolic 85–93
[2017-12-18] MEDS: ACETAMINOPHEN 500 MG TAB PO SCH ×3 (01:19→17:23)
[2017-12-18 06:16] LABS: PLATELET COUNT, AUTOMATED 636 K/uL (150-450)
[2017-12-18] MEDS: ENOXAPARIN 40 MG/0.4ML SYR SC SCH (08:54)
[2017-12-18] MEDS: GABAPENTIN 300 MG CAP PO SCH ×3 (08:54→20:55)
--- NOTE | 2017-12-18 09:25 | General Surgery Progress Note ---
Physical Exam Vital Signs Date Time Temp Pulse Resp B/P (MAP) Pulse Ox O2 Delivery O2 Flow Rate FiO2 12/18/17 05:25 98.1 79 14 124/86 (99) 95 Room Air 12/15/17 04:01 0.5 Intake and Output 12/18/17 07:00 Intake Total 2166 ml Output Total 150 ml Balance 2016 ml Intake Oral 610 ml IV Total 1556 ml Stool Total 150 ml # Voids 1 General Appearance: Alert, Awake, No Acute Distress, Other (cachectic appearing male) Cardiovascular: Regular Rate and Rhythm Respiratory: Clear to Auscultation GI: Soft and Non-Tender, Other (midline incision clean, dry and intact, ileostomy with moderate greenish output without much substance.) Extremities: Warm, Other (thinned) Result Diagram: 12/18/17 0528 12/17/17 0530 Monitor Interpretation: Normal Sinus Rhythm Assessment and Plan Problems: (1) Colonic mass Status: Acute Assessment & Plan: Mass is concerning for locally advanced colorectal malignancy. Will start mechanical and chemical bowel prep this evening and plan en bloc resection of this mass in the am. Pre-op colonoscopy would be optimal to rule out synchronous lesion. CEA pending. Type and cross for 2 U PRBCs complete, and will transfuse either tonight or in am/OR depending how bowel prep goes. Proc/risks/benefits discussed in detail with pt. His questions have been answered. Pt understands I will introduce Dr Clements to him in the am who will be his surgeon in the am. 12/10/2017: CT reviewed in detail with radiologist. The descending colon also appears thickened with loss of markings raising question of inflammatory bowel disease. I discussed with the patient the differential diagnosis, the importance of having Dr. Montoya perform colonoscopy prior to proceeding with laparotomy. I discussed the procedure of laparotomy and colectomy with possibility of needing a temporary stoma, as well as the risks and possible complications of surgery. Alicia has had all his questions answered and wishes to proceed with colonoscopy followed by laparotomy and colectomy, and indicated procedures. Informed consent was obtained. 12/10/17 (Dr. Koroma note): I spoke and evaluated the patient along with Dr. Clements and Dr. Ortiz. I discussed performing a colonoscopy on him before his surgery. I explained the procedure to him and he seems to understand and seems agreeable with proceeding with colonoscopy. He has been bowel prepped yesterday and has been NPO overnight. He would like to proceed with colonoscopy immediately prior to his surgery. 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 End ileostomy performed due to obvious severe inflammatory bowel disease (path pending). Will keep NG and Quiles today and start to mobilize. DC antibiotics after today's doses. Leave dressing in place until tomorrow. Preop CEA still pending. Will consult Oncology as soon as pathology is back. Will also await pathology before considering initiation of therapy for Inflammatory bowel disease. 12/12/2017: Silas remains stable, though he has had a rise in his WBC (16K) and Creatinine (1.6). I will check urine analysis and FE Na+, and renal US in light of his known nephrolithiasis. All meds reviewed, cephalosporins are associated with interstial nephritis, I elected to change the Cefoxitin to Flagyl and Levoquin instead of stopping ABX in light of leukocytosis. Continue PPN. continue NG and Quiles today. Encouraged to get OOB and ambulate TID today. Preop CEA still pending. Pathology pending. 12/13/2017: Continues to slowly improve, Still with leukocytosis but remains afebrile. Creatinine down to 1.4 with good urine output. Work up of GRIS yesterday remarkable for no evidence of obstruction from known nephrolithiasis, urine sediment negative, negative for proteinuria. Still has not opened up with minimal ileostomy output. Will continue Flagyl and Levoquin. Continue NG suc tion. Continue PPN. Continue to increase mobilization. CEA preop was < 2. Pathology pending. 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 0/22 lymph nodes. Severe inflammatory bowel disease is also noted. This was not characterized as Crohn's versus ulcerative colitis. only 200 ml of NG output today so I will DC NGT and start sips of clear liquids. Encouraged to get up and ambulate and use IS. Will ask for pathology to be sent out for expert opinion regarding the inflammatory bowel disease. Will need to initiate treatment of the IBD. Continue the Flagyl and Levoquin since this seems to be Crohn's. Hold off on steroids for now. Dr. Jacobson will be taking over for me tomorrow and Dr. Ortiz will return to resume care on Wednesday. 12/14/17: POD5 Afebrile and leukocytosis is resolved. GRIS resolving and quiles removed. He is ambulating and tolerating sips, though he seems distended. Cont levaquin and flagyl. Will initiate IBD treatment after he is clinically well from surgery. Added multimodal oral pain regimen today. Abd series ordered to evaluate distension. 12/15/2017 POD#5 stable progress, adv to full liquids with PO protein supplements. Cont PPN. Will likely DC antibiotics next 24-48 hours. Oncology consult as path is finalized. Cont stoma teaching. 12/16/2017 POD #6 stable progress, DC antibiotics. Cont PPN. Cont stoma teaching. Will need GI consult for treatment IBD. Oncology consult pending. 12/17/2017 POD#7 continues to improve manuel daily basis. Felling more comfortable with stoma care. Appt with Oncology Dr Leal 12/31/2017. DC PPN and follow UOP closely with high stoma output. 12/18/2017 9:30am: Patient is doing well. Stoma output continues and is fairly high. Educating patient about using gatorade or other nutritious liquids to try to approximate ileostomy output. Ready for discharge soon. (2) Iron deficiency anemia Status: Acute Assessment & Plan: Pt minimally symptomatic, will likely need transfusion attila- operatively. 12/10/2017: Hgb down to 5 after hydration. Two units PRBC's being transfused preoperatively. 12/11/2017: Will administer iron sucrose 200mg today. 12/12/2017: Will likely need another dose of iron sucrose later in the week. Will Give Vit B12 IM today in light of his severe IBD involving terminal ileum. Will check reticulocyte count in am. 12/13/2017: Will administer another dose of iron sucrose today. Recheck CBC with reticulocyte count in am. 12/13/2017: administered iron sucrose today. Part of anemia could be dilutional from perioop fluids and fluid resuscitation for treatment of GRIS. 12/15/2017 Hct stable, asymptomatic. Cont to follow. 12/17/2017: Hct stable. No further transfusion or iron needed. 12/18/2017 9:30: Hematocrit remains stable. (3) Severe protein-energy malnutrition Assessment & Plan: 12/11/2017: Albumin less than 2.0, BMI 19, > 15% weight loss. Will start PPN and supplement Albumin. Should be able to start PO in next few days, if not then will need central line and TPN. Check prealbumin in am. 12/12/2017: Continue PPN and Albumin supplementation. Check prealbumin. Should be able to start enteral nutrition in next few days. 12/13/2017: Continue PPN and Albumin supplementation. Prealbumin pending. Will start enteral nutrition once bowel function returns. 12/14/2017: Advance to full liquid diet and nutritional supplements 12/15/2017 plan as above. Cont PPN. 12/17/2017: repeat pre-albumin pending, DC PPN today. 12/18/2017 9:30am: Tolerating a regular diet nicely. (4) GRIS (acute kidney injury) Status: Acute Assessment & Plan: 12/12/2017: Nonoliguric, creatinine now 1.6. BUN/Cr ratio < 10. Does not appear hypovolemic. Will check urine analysis with smear to look for eosinophils in urine. Check FE Na+, Meds reviewed. Cefoxitin stopped. Check renal ultrasound in light of known nephrolithiasis to rule out obstruction. 12/13/2017: Creatinine down to 1.4. Work up negative. Will recheck labs in am. 12/14: Cr down to 1.1 12/15/2017 improved, cont to follow UOP and creat closely. 12/17/2017: creat 0.8 with adequate UOP, cont to follow closely. 12/18/2017 9:30: Creatinine yesterday 0.8. Recheck in am. Voids not recorded in volumes. Exam Sepsis Risk: No Definite Risk Problem Qualifiers (1) Iron deficiency anemia: Iron deficiency anemia type: chronic blood loss Qualified Codes: D50.0 - Iron deficiency anemia secondary to blood loss (chronic) SANDRA EASON MD Dec 18, 2017 09:25
[2017-12-19] MEDS: ACETAMINOPHEN 500 MG TAB PO SCH ×3 (00:36→17:12)
[2017-12-19 03:18] VITALS: BP 110/84
--- NOTE | 2017-12-19 08:31 | General Surgery Progress Note ---
Subjective Patient Complains of: Cardiovascular: Other (tender firm area left forearm above intravenous) Physical Exam Vital Signs Date Time Temp Pulse Resp B/P (MAP) Pulse Ox O2 Delivery O2 Flow Rate FiO2 12/19/17 03:18 98.1 84 18 110/84 (93) 97 Room Air Intake and Output 12/19/17 07:00 Intake Total 510 ml Balance 510 ml Intake Oral 510 ml # Voids 1 General Appearance: Alert, Awake, No Acute Distress, Other (Cachectic appearin g) ENT: Moist Mucous Membranes Cardiovascular: Regular Rate and Rhythm Respiratory: Clear to Auscultation GI: Soft and Non-Tender, Other (left lower quadrant ileostomy with green output, midline incision clean, dry and intact.) Extremities: Soft and Non Tender, Other (in SCDs) Result Diagram: 12/18/17 0528 12/17/17 0530 Monitor Interpretation: Normal Sinus Rhythm Assessment and Plan Problems: (1) Colonic mass Status: Acute Assessment & Plan: Mass is concerning for locally advanced colorectal malignancy. Will start mechanical and chemical bowel prep this evening and plan en bloc resection of this mass in the am. Pre-op colonoscopy would be optimal to rule out synchronous lesion. CEA pending. Type and cross for 2 U PRBCs complete, and will transfuse either tonight or in am/OR depending how bowel prep goes. Proc/risks/benefits discussed in detail with pt. His questions have been answered. Pt understands I will introduce Dr Clements to him in the am who will be his surgeon in the am. 12/10/2017: CT reviewed in detail with radiologist. The descending colon also appears thickened with loss of markings raising question of inflammatory bowel disease. I discussed with the patient the differential diagnosis, the importance of having Dr. Montoya perform colonoscopy prior to proceeding with laparotomy. I discussed the procedure of laparotomy and colectomy with possibil ity of needing a temporary stoma, as well as the risks and possible complications of surgery. Alicia has had all his questions answered and wishes to proceed with colonoscopy followed by laparotomy and colectomy, and indicated procedures. Informed consent was obtained. 12/10/17 (Dr. Koroma note): I spoke and evaluated the patient along with Dr. Clements and Dr. Ortiz. I discussed performing a colonoscopy on him before his surgery. I explained the procedure to him and he seems to understand and seems agreeable with proceeding with colonoscopy. He has been bowel prepped yesterday and has been NPO overnight. He would like to proceed with colonoscopy immediately prior to his surgery. 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 End ileostomy performed due to obvious severe inflammatory bowel disease (path pending). Will keep NG and Quiles today and start to mobilize. DC antibiotics after today's doses. Leave dressing in place until tomorrow. Preop CEA still pending. Will consult Oncology as soon as pathology is back. Will also await pathology before considering initiation of therapy for Inflammatory bowel disease. 12/12/2017: Silas remains stable, though he has had a rise in his WBC (16K) and Creatinine (1.6). I will check urine analysis and FE Na+, and renal US in light of his known nephrolithiasis. All meds reviewed, cephalosporins are associated with interstial nephritis, I elected to change the Cefoxitin to Flagyl and Levoquin instead of stopping ABX in light of leukocytosis. Continue PPN. continue NG and Quiles today. Encouraged to get OOB and ambulate TID today. Preop CEA still pending. Pathology pending. 12/13/2017: Continues to slowly improve, Still with leukocytosis but remains afebrile. Creatinine down to 1.4 with good urine output. Work up of GRIS yesterday remarkable for no evidence of obstruction from known nephrolithiasis, urine sediment negative, negative for proteinuria. Still has not opened up with minimal ileostomy output. Will continue Flagyl and Levoquin. Continue NG suction. Continue PPN. Continue to increase mobilization. CEA preop was < 2. Pathology pending. 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 0/22 lymph nodes. Severe inflammatory bowel disease is also noted. This was not characterized as Crohn's versus ulcerative colitis. only 200 ml of NG output today so I will DC NGT and start sips of clear liquids. Encouraged to get up and ambulate and use IS. Will ask for pathology to be sent out for expert opinion regarding the inflammatory bowel disease. Will need to initiate treatment of the IBD. Continue the Flagyl and Levoquin since this seems to be Crohn's. Hold off on steroids for now. Dr. Jacobson will be taking over for me tomorrow and Dr. Ortiz will return to resume care on Wednesday. 12/14/17: POD5 Afebrile and leukocytosis is resolved. GRIS resolving and quiles removed. He is ambulating and tolerating sips, though he seems distended. Cont levaquin and flagyl. Will initiate IBD treatment after he is clinically well from surgery. Added multimodal oral pain regimen today. Abd series ordered to evaluate distension. 12/15/2017 POD#5 stable progress, adv to full liquids with PO protein supplements. Cont PPN. Will likely DC antibiotics next 24-48 hours. Oncology consult as path is finalized. Cont stoma teaching. 12/16/2017 POD #6 stable progress, DC antibiotics. Cont PPN. Cont stoma teaching. Will need GI consult for treatment IBD. Oncology consult pending. 12/17/2017 POD#7 continues to improve manuel daily basis. Felling more comfortable with stoma care. Appt with Oncology Dr Leal 12/31/2017. DC PPN and follow UOP closely with high stoma output. 12/18/2017 9:30am: Patient is doing well. Stoma output continues and is fairly high. Educating patient about using gatorade or other nutritious liquids to try to approximate ileostomy output. Ready for discharge soon. 12/19/2017 08:30am: Patient is doing well but is still not eating/drinking enough to keep up with his ileostomy output. I will advance diet, advised him to eat many small meals and will check lab in am. (2) Iron deficiency anemia Status: Acute Assessment & Plan: Pt minimally symptomatic, will likely need transfusion attila- operatively. 12/10/2017: Hgb down to 5 after hydration. Two units PRBC's being transfused preoperatively. 12/11/2017: Will administer iron sucrose 200mg today. 12/12/2017: Will likely need another dose of iron sucrose later in the week. Will Give Vit B12 IM today in light of his severe IBD involving terminal ileum. Will check reticulocyte count in am. 12/13/2017: Will administer another dose of iron sucrose today. Recheck CBC with reticulocyte count in am. 12/13/2017: administered iron sucrose today. Part of anemia could be dilutional from perioop fluids and fluid resuscitation for treatment of GRIS. 12/15/2017 Hct stable, asymptomatic. Cont to follow. 12/17/2017: Hct stable. No further transfusion or iron needed. 12/18/2017 9:30: Hematocrit remains stable. 12/19/2017 8:30am: I will check hematocrit in am. (3) Severe protein-energy malnutrition Assessment & Plan: 12/11/2017: Albumin less than 2.0, BMI 19, > 15% weight loss. Will start PPN and supplement Albumin. Should be able to start PO in next few days, if not then will need central line and TPN. Check prealbumin in am. 12/12/2017: Continue PPN and Albumin supplementation. Check prealbumin. Should be able to start enteral nutrition in next few days. 12/13/2017: Continue PPN and Albumin supplementation. Prealbumin pending. Will start enteral nutrition once bowel function returns. 12/14/2017: Advance to full liquid diet and nutritional supplements 12/15/2017 plan as above. Cont PPN. 12/17/2017: repeat pre-albumin pending, DC PPN today. 12/18/2017 9:30am: Tolerating a regular diet nicely 12/19/17 8:30am: Advance to regular diet and encouraged multiple small meals. He is not yet eating/drinking enough to keep up with ileostomy output.. (4) GRIS (acute kidney injury) Status: Acute Assessment & Plan: 12/12/2017: Nonoliguric, creatinine now 1.6. BUN/Cr ratio < 10. Does not appear hypovolemic. Will check urine analysis with smear to look for eosinophils in urine. Check FE Na+, Meds reviewed. Cefoxitin stopped. Check renal ultrasound in light of known nephrolithiasis to rule out obstruction. 12/13/2017: Creatinine down to 1.4. Work up negative. Will recheck labs in am. 12/14: Cr down to 1.1 12/15/2017 improved, cont to follow UOP and creat closely. 12/17/2017: creat 0.8 with adequate UOP, cont to follow closely. 12/18/2017 9:30: Creatinine yesterday 0.8. Recheck in am. Voids not recorded in volumes. 12/19/2017 8:30am: Recheck lab in am. Exam Sepsis Risk: No Definite Risk Problem Qualifiers (1) Iron deficiency anemia: Iron deficiency anemia type: chronic blood loss Qualified Codes: D50.0 - Iron deficiency anemia secondary to blood loss (chronic) SANDRA EASON MD Dec 19, 2017 08:31
[2017-12-19 09:16] VITALS: BP 125/98
[2017-12-19] MEDS: GABAPENTIN 300 MG CAP PO SCH ×3 (09:18→21:00)
[2017-12-19] MEDS: ENOXAPARIN 40 MG/0.4ML SYR SC SCH (09:18)
[2017-12-19 15:31] VITALS: BP 125/90
[2017-12-19 19:42] VITALS: BP 120/87
[2017-12-20 00:39] VITALS: BP 122/86
[2017-12-20] MEDS: ACETAMINOPHEN 500 MG TAB PO SCH ×3 (00:43→17:01)
[2017-12-20 03:27] VITALS: BP 110/80
[2017-12-20 05:55] LABS: PLATELET COUNT, AUTOMATED 714 K/uL (150-450)
[2017-12-20 07:16] VITALS: BP 120/88
--- NOTE | 2017-12-20 08:32 | General Surgery Progress Note ---
Subjective Progress Notes Subjective No complaints this morning. "I'm actually feeling really good." Tolerating diet. Physical Exam Vital Signs Date Time Temp Pulse Resp B/P (MAP) Pulse Ox O2 Delivery O2 Flow Rate FiO2 12/20/17 07:16 98.2 74 16 120/88 (99) 97 Room Air Intake and Output 12/20/17 06:59 Intake Total 490 ml Balance 490 ml Intake Oral 490 ml General Appearance: Alert, Awake, No Acute Distress, Afebrile GI: Other (Soft, nontender. Midline incision is healing well without erythema or drainage. Stoma is pink with gas and liquid stool in bag.) Extremities: Warm, Perfused Result Diagram: 12/20/1752512/20/17525 Monitor Interpretation: Normal Sinus Rhythm Assessment and Plan Problems: (1) Colonic mass Status: Acute Assessment & Plan: Mass is concerning for locally advanced colorectal malignancy. Will start mechanical and chemical bowel prep this evening and plan en bloc resection of this mass in the am. Pre-op colonoscopy would be optimal to rule out synchronous lesion. CEA pending. Type and cross for 2 U PRBCs complete, and will transfuse either tonight or in am/OR depending how bowel prep goes. Proc/risks/benefits discussed in detail with pt. His questions have been answered. Pt understands I will introduce Dr Clements to him in the am who will be his surgeon in the am. 12/10/2017: CT reviewed in detail with radiologist. The descending colon also appears thickened with loss of markings raising question of inflammatory bowel disease. I discussed with the patient the differential diagnosis, the importance of having Dr. Montoya perform colonoscopy prior to proceeding with laparotomy. I discussed the procedure of laparotomy and colectomy with possibility of needing a temporary stoma, as well as the risks and possible complications of surgery. Alicia has had all his questions answered and wishes to proceed with colonoscopy followed by laparotomy and colectomy, and indicated procedures. Informed consent was obtained. 12/10/17 (Dr. Forman note): I spoke and evaluated the patient along with Dr. Clements and Dr. Ortiz. I discussed performing a colonoscopy on him before his surgery. I explained the procedure to him and he seems to understand and seems agreeable with proceeding with colonoscopy. He has been bowel prepped yesterday and has been NPO overnight. He would like to proceed with colonoscopy immediately prior to his surgery. 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 End ileostomy performed due to obvious severe inflammatory bowel disease (path pending). Will keep NG and Quiles today and start to mobilize. DC antibiotics after today's doses. Leave dressing in place until tomorrow. Preop CEA still pending. Will consult Oncology as soon as pathology is back. Will also await pathology before considering initiation of therapy for Inflammatory bowel disease. 12/12/2017: Silas remains stable, though he has had a rise in his WBC (16K) and Creatinine (1.6). I will check urine analysis and FE Na+, and renal US in light of his known nephrolithiasis. All meds reviewed, cephalosporins are associated with interstial nephritis, I elected to change the Cefoxitin to Flagyl and Levoquin instead of stopping ABX in light of leukocytosis. Continue PPN. continue NG and Quiles today. Encouraged to get OOB and ambulate TID today. Preop CEA still pending. Pathology pending. 12/13/2017: Continues to slowly improve, Still with leukocytosis but remains afebrile. Creatinine down to 1.4 with good urine output. Work up of GRIS yesterday remarkable for no evidence of obstruction from known nephrolithiasis, urine sediment negative, negative for proteinuria. Still has not opened up with minimal ileostomy output. Will continue Flagyl and Levoquin. Continue NG suction. Continue PPN. Continue to increase mobilization. CEA preop was < 2. Pathology pending. 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 0/22 lymph nodes. Severe inflammatory bowel disease is also noted. This was not characterized as Crohn's versus ulcerative colitis. only 200 ml of NG output today so I will DC NGT and start sips of clear liquids. Encouraged to get up and ambulate and use IS. Will ask for pathology to be sent out for expert opinion regarding the inflammatory bowel disease. Will need to initiate treatment of the IBD. Continue the Flagyl and Levoquin since this seems to be Crohn's. Hold off on steroids for now. Dr. Jacobson will be taking over for me tomorrow and Dr. Ortiz will return to resume care on Wednesday. 12/14/17: POD5 Afebrile and leukocytosis is resolved. GRIS resolving and quiles removed. He is ambulating and tolerating sips, though he seems distended. Cont levaquin and flagyl. Will initiate IBD treatment after he is clinically well from surgery. Added multimodal oral pain regimen today. Abd series ordered to evaluate distension. 12/15/2017 POD#5 stable progress, adv to full liquids with PO protein supplements. Cont PPN. Will likely DC antibiotics next 24-48 hours. Oncology consult as path is finalized. Cont stoma teaching. 12/16/2017 POD #6 stable progress, DC antibiotics. Cont PPN. Cont stoma teaching. Will need GI consult for treatment IBD. Oncology consult pending. 12/17/2017 POD#7 continues to improve manuel daily basis. Felling more comfortable with stoma care. Appt with Oncology Dr Leal 12/31/2017. DC PPN and follow UOP closely with high stoma output. 12/18/2017 9:30am: Patient is doing well. Stoma output continues and is fairly high. Educating patient about using gatorade or other nutritious liquids to try to approximate ileostomy output. Ready for discharge soon. 12/19/2017 08:30am: Patient is doing well but is still not eating/drinking enough to keep up with his ileostomy output. I will advance diet, advised him to eat many small meals and will check lab in am. 12/20/17: POD#10. Doing well. He has not yet changed his own appliance. Instructed nursing to teach him to change the appliance today (have him do under their supervision). Will need to follow ileostomy output. He seems to be e ating very good today, will follow this. May need to add fiber to thicken enteric contents and then ultimately may need to try lomotil. He can go home when he can care for the stoma, possibly later today or tomorrow. I will see him back in my office to make sure he's recovering without problems. He will also need to follow up with oncology and GI and so I will arrange these at his f/u appt with me. Will remove the skin judie in the next couple of days. (2) Iron deficiency anemia Status: Acute Assessment & Plan: Pt minimally symptomatic, will likely need transfusion attila- operatively. 12/10/2017: Hgb down to 5 after hydration. Two units PRBC's being transfused preoperatively. 12/11/2017: Will administer iron sucrose 200mg today. 12/12/2017: Will likely need another dose of iron sucrose later in the week. Will Give Vit B12 IM today in light of his severe IBD involving terminal ileum. Will check reticulocyte count in am. 12/13/2017: Will administer another dose of iron sucrose today. Recheck CBC with reticulocyte count in am. 12/13/2017: administered iron sucrose today. Part of anemia could be dilutional from perioop fluids and fluid resuscitation for treatment of GRIS. 12/15/2017 Hct stable, asymptomatic. Cont to follow. 12/17/2017: Hct stable. No further transfusion or iron needed. 12/18/2017 9:30: Hematocrit remains stable. 12/19/2017 8:30am: I will check hematocrit in am. (3) Severe protein-energy malnutrition Status: Chronic Assessment & Plan: 12/11/2017: Albumin less than 2.0, BMI 19, > 15% weight loss. Will start PPN and supplement Albumin. Should be able to start PO in next few days, if not then will need central line and TPN. Check prealbumin in am. 12/12/2017: Continue PPN and Albumin supplementation. Check prealbumin. Should be able to start enteral nutrition in next few days. 12/13/2017: Continue PPN and Albumin supplementation. Prealbumin pending. Will start enteral nutrition once bowel function returns. 12/14/2017: Advance to full liquid diet and nutritional supplements 12/15/2017 plan as above. Cont PPN. 12/17/2017: repeat pre-albumin pending, DC PPN today. 12/18/2017 9:30am: Tolerating a regular diet nicely 12/19/17 8:30am: Advance to regular diet and encouraged multiple small meals. He is not yet eating/drinking enough to keep up with ileostomy output.. (4) GRIS (acute kidney injury) Status: Resolved Assessment & Plan: 12/12/2017: Nonoliguric, creatinine now 1.6. BUN/Cr ratio < 10. Does not appear hypovolemic. Will check urine analysis with smear to look for eosinophils in urine. Check FE Na+, Meds reviewed. Cefoxitin stopped. Check renal ultrasound in light of known nephrolithiasis to rule out obstruction. 12/13/2017: Creatinine down to 1.4. Work up negative. Will recheck labs in am. 12/14: Cr down to 1.1 12/15/2017 improved, cont to follow UOP and creat closely. 12/17/2017: creat 0.8 with adequate UOP, cont to follow closely. 12/18/2017 9:30: Creatinine yesterday 0.8. Recheck in am. Voids not recorded in volumes. 12/19/2017 8:30am: Recheck lab in am. Condition Stable. Time Spent: < 30 min Exam Sepsis Risk: No Definite Risk Problem Qualifiers (1) Iron deficiency anemia: Iron deficiency anemia type: chronic blood loss Qualified Codes: D50.0 - Iron deficiency anemia secondary to blood loss (chronic) ADILIA FORMAN MD Dec 20, 2017 08:32
--- NOTE | 2017-12-20 08:52 | Medical Nutrition Therapy ---
Nutrition Anthropometrics Height (Inches): 66.00 Height (Calculated Centimeters: 167.502808 Weight (Pounds): 120 Weight (Calculated Kilograms): 54.431 BMI: 19.4 Johan Nutrition Score: Very Poor Johan Nutrition Risk Score: 19 Dietary Referral Nutrition Risk Factors: Nutrition Risk Comment: Physical Findings Physical Appearance: low end of normal range Skin Appearance Skin Appearance: Edema Edema Location Modifier: Edema Location: Type of Edema: Degree of Edema: Gastrointestinal Symptoms GI Symtoms: Change in Bowel Pattern Tube Present: NG Bowel Sounds: Recent Bowel Pattern: Stool Characteristics: Nutritional Diagnosis Nutritional Risk Acuity 1: Malnutrition Nutritional Risk Acuity 2: Ileostomy Nutritional Risk Acuity 3: Nutrit Anemia Nutritional Acuity: 1-High Nutrition Diagnosis: Inadequate Food Intake Nutrition Etiology: Physiological Causes Nutrition Problem/Etiology/Sym: AEB pt consuming 75- 100% of small protions. Energy Requirement: 2100 (M- StJ 1.3 SF) Protein Requirement: 70 (1.3gm/kg) Fluid Requirement: 1900 (35ml/kg) Diet Type: Medical Liquid/GI soft Nutrition Intervention: Between meal supplement, Incr diet as tolerated Food Likes: encourage high Fe- beef, cold cereal, eggs, peanut butter Additional Diet Restrictions: PUT PROTEIN POWDER IN APPROPRIATE FOODS Diet Comment To [facility]: OFFER NUTR SUPPLMENTS & SNACK BETWEEN MEALS- WHEN [employer]MP [employer] OFF [address] TRA[address] Nutrition Monitoring & Eval Nutrition Goals: Eat 75-100% Meal Nutrition Follow-Up: Good Intake, Fair Intake RD Patient Assessment Time: [address] Assessment Type: RD Re-Assessment Patient Nutrition Acuity: 1-High Follow Up Date: Dec 23, 2017 Nutritional Comment: 12/10 Pt admitted with abd pain and colonic mass. Pt currently NPO for surgery. Pt has Fe def anemia. Will encourage highFe foods when diet advances.Low labs includeL hgb 5.9, Hct 21.2,Alb 3. Elevated creatinine 1.4. Will cont to monitor. 12/13 Pt recieved ileostomy. Pt currently is recieving PPN at 83ml/hr. This is providing 490 kcal and 58g protein which is meeting 23% est kcal and 83% est protein needs. Recommended adding fat to PPN to increase kcal. Increasing PPN to 105m//hr would meet protein needs. Dr reported will change to enteral nutrition when pt has bowel sounds. Osmolite at 85 ml/hr would meet nutritional needs. BMI is in low end of normal range. Talked with pt and he is not reporting any recent wt loss. Will cont to monitor. BK 12/15 Pt cont on PPN at 83ml/hr but diet has increased to med liquid. Will provide nutritional supplement tid plus put protein powder in appropriate food to increase kcal and protein intake. alb cont low but has increased to 2.8. Prealb very low at 5.7. Will cont to monitor and encourage intake. BK 12/17 Pt cont on med liquid/GI soft diet and is eating 75- 100% . PPN has d/diana. Alb improved to 3.5, pending new prealb. BUN/creatinine is WNR. Will cont protein powder in appropriate foods and offer nutritional supplments. Will cont to monitor and encourage intake. BK 12/20 Diet advanced to regular. Pt eating 100% of small to regular portions. Offering nutrtional supplement and will add a snack between meals to encoruage small, frequent intake. Alb cont low but improved to 3.5. Pre-alb cont low but improved to 14. Will provide education on ileostomy diet. RONY STATON Dec 20, 2017 08:52
[2017-12-20] MEDS: ENOXAPARIN 40 MG/0.4ML SYR SC SCH (09:13)
[2017-12-20] MEDS: GABAPENTIN 300 MG CAP PO SCH ×3 (09:13→20:16)
--- NOTE | 2017-12-20 12:22 | Medical Nutrition Therapy ---
Nutritional Education Nutrition Education Topic: Other (Ileostomy diet) Learning Readiness: Interested Teaching Methods: Discussion, Handout Response to Teaching: Verbalize understanding Teaching Recipient: Patient, Family Nutrition Counseling: Reviewed food recommended and foods that may cause blockage, odor, diarrhea, and thicken stools. Nutrition Monitoring & Eval RD Patient Assessment Time: [address] Assessment Type: RD Education Patient Nutrition Acuity: 1-High Follow Up Date: Dec 23, 2017 Nutritional Comment: 12/10 Pt admitted with abd pain and colonic mass. Pt currently NPO for surgery. Pt has Fe def anemia. Will encourage highFe foods when diet advances.Low labs includeL hgb 5.9, Hct 21.2,Alb 3. Elevated creatinine 1.4. Will cont to monitor. 12/13 Pt recieved ileostomy. Pt currently is recieving PPN at 83ml/hr. This is providing 490 kcal and 58g protein which is meeting 23% est kcal and 83% est protein needs. Recommended adding fat to PPN to increase kcal. Increasing PPN to 105m//hr would meet protein needs. reported will change to enteral nutrition when pt has bowel sounds. Osmolite at 85 ml/hr would meet nutritional needs. BMI is in low end of normal range. Talked with pt and he is not reporting any recent wt loss. Will cont to monitor. MIS 12/15 Pt cont on PPN at 83ml/hr but diet has increased to med liquid. Will provide nutritional supplement tid plus put protein powder in appropriate food to increase kcal and protein intake. alb cont low but has increased to 2.8. Prealb very low at 5.7. Will cont to monitor and encourage intake. MIS 12/17 Pt cont on med liquid/GI soft diet and is eating 75- 100% . PPN has d/diana. Alb improved to 3.5, pending new prealb. BUN/creatinine is WNR. Will cont protein powder in appropriate foods and offer nutritional supplments. Will cont to monitor and encourage intake. MIS 12/20 Diet advanced to regular. Pt eating 100% of small to regular portions. Offering nutrtional supplement and will add a snack between meals to encoruage small, frequent intake. Alb cont low but improved to 3.5. Pre-alb cont low but improved to 14. Will provide education on ileostomy diet. 12/23 Provided education on diet for ileostomy to pt and family (with pt's consent). RONY SR Dec 20, 2017 12:22
[2017-12-20 13:51] VITALS: BP 124/93
[2017-12-20 18:55] VITALS: BP 126/82
[2017-12-20 23:39] VITALS: BP 116/81
[2017-12-21] MEDS: ACETAMINOPHEN 500 MG TAB PO SCH ×2 (00:56→09:35)
[2017-12-21 03:55] VITALS: BP 123/88
[2017-12-21 09:22] VITALS: BP 117/90
[2017-12-21] MEDS: GABAPENTIN 300 MG CAP PO SCH (09:35)
[2017-12-21] MEDS: ENOXAPARIN 40 MG/0.4ML SYR SC SCH (09:38)
--- NOTE | 2017-12-21 11:26 | Short(Outpt) Discharge Summary ---
Discharge Summary Reason for Hosp/Final Diag: (1) Colonic mass Status: Acute Hospital Course & Plan: Mass is concerning for locally advanced colorectal malignancy. Will start mechanical and chemical bowel prep this evening and plan en bloc resection of this mass in the am. Pre-op colonoscopy would be optimal to rule out synchronous lesion. CEA pending. Type and cross for 2 U PRBCs complete, and will transfuse either tonight or in am/OR depending how bowel prep goes. Proc/risks/benefits discussed in detail with pt. His questions have been answered. Pt understands I will introduce Dr Clements to him in the am who will be his surgeon in the am. 12/10/2017: CT reviewed in detail with radiologist. The descending colon also appears thickened with loss of markings raising question of inflammatory bowel disease. I discussed with the patient the differential diagnosis, the importance of having Dr. Montoya perform colonoscopy prior to proceeding with laparotomy. I discussed the procedure of laparotomy and colectomy with possibility of needing a temporary stoma, as well as the risks and possible complications of surgery. Alicia has had all his questions answered and wishes to proceed with colonoscopy followed by laparotomy and colectomy, and indicated procedures. Informed consent was obtained. 12/10/17 (Dr. Forman note): I spoke and evaluated the patient along with Dr. Clements and Dr. Ortiz. I discussed performing a colonoscopy on him before his surgery. I explained the procedure to him and he seems to understand and seems agreeable with proceeding with colonoscopy. He has been bowel prepped yesterday and has been NPO overnight. He would like to proceed with colonoscopy immediately prior to his surgery. 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 End ileostomy performed due to obvious severe inflammatory bowel disease (path pending). Will keep NG and Quiles today and start to mobilize. DC antibiotics after today's doses. Leave dressing in place until tomorrow. Preop CEA still pending. Will consult Oncology as soon as pathology is back. Will also await pathology before considering initiation of therapy for Inflammatory bowel disease. 12/12/2017: Silas remains stable, though he has had a rise in his WBC (16K) and Creatinine (1.6). I will check urine analysis and FE Na+, and renal US in light of his known nephrolithiasis. All meds reviewed, cephalosporins are associated with interstial nephritis, I elected to change the Cefoxitin to Flagyl and Levoquin instead of stopping ABX in light of leukocytosis. Continue PPN. jerry nue NG and Quiles today. Encouraged to get OOB and ambulate TID today. Preop CEA still pending. Pathology pending. 12/13/2017: Continues to slowly improve, Still with leukocytosis but remains afebrile. Creatinine down to 1.4 with good urine output. Work up of GRIS yesterday remarkable for no evidence of obstruction from known nephrolithiasis, urine sediment negative, negative for proteinuria. Still has not opened up with minimal ileostomy output. Will continue Flagyl and Levoquin. Continue NG suction. Continue PPN. Continue to increase mobilization. CEA preop was < 2. Pathology pending. 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 0 lymph nodes. Severe inflammatory bowel disease is also noted. This was not characterized as Crohn's versus ulcerative colitis. only 200 ml of NG output today so I will DC NGT and start sips of clear liquids. Encouraged to get up and ambulate and use IS. Will ask for pathology to be sent out for expert opinion regarding the inflammatory bowel disease. Will need to initiate treatment of the IBD. Continue the Flagyl and Levoquin since this seems to be Crohn's. Hold off on steroids for now. Dr. Jacobson will be taking over for me tomorrow and Dr. Ortiz will return to resume care on Wednesday. 12/14/17: POD5 Afebrile and leukocytosis is resolved. GRIS resolving and quiles removed. He is ambulating and tolerating sips, though he seems distended. Cont levaquin and flagyl. Will initiate IBD treatment after he is clinically well from surgery. Added multimodal oral pain regimen today. Abd series ordered to evaluate distension. 12/15/2017 POD#5 stable progress, adv to full liquids with PO protein supplements. Cont PPN. Will likely DC antibiotics next 24-48 hours. Oncology consult as path is finalized. Cont stoma teaching. 12/16/2017 POD #6 stable progress, DC antibiotics. Cont PPN. Cont stoma teaching. Will need GI consult for treatment IBD. Oncology consult pending. 12/17/2017 POD#7 continues to improve manuel daily basis. Felling more comfortable with stoma care. Appt with Oncology Dr Leal 12/31/2017. DC PPN and follow UOP closely with high stoma output. 12/18/2017 9:30am: Patient is doing well. Stoma output continues and is fairly high. Educating patient about using gatorade or other nutritious liquids to try to approximate ileostomy output. Ready for discharge soon. 12/19/2017 08:30am: Patient is doing well but is still not eating/drinking enough to keep up with his ileostomy output. I will advance diet, advised him to eat many small meals and will check lab in am. 12/20/17: POD#10. Doing well. He has not yet changed his own appliance. Instructed nursing to teach him to change the appliance today (have him do under their supervision). Will need to follow ileostomy output. He seems to be eating very good today, will follow this. May need to add fiber to thicken enteric contents and then ultimately may need to try lomotil. He can go home when he can care for the stoma, possibly later today or tomorrow. I will see him back in my office to make sure he's recovering without problems. He will al so need to follow up with oncology and GI and so I will arrange these at his f/u appt with me. Will remove the skin judie in the next couple of days. 12/21/17: POD#11. Doing well. Stoma teaching completed. HH RN arranged as well as transitional care nursing. Pt feels good. Will d/c to home today. I will follow ileostomy output and recovery from surgery closely as an outpatient. Will ensure appropriate oncology and GI F/U when I see him back in the office. (2) Iron deficiency anemia Status: Acute Hospital Course & Plan: Pt minimally symptomatic, will likely need transfusion attila-operatively. 12/10/2017: Hgb down to 5 after hydration. Two units PRBC's being transfused preoperatively. 12/11/2017: Will administer iron sucrose 200mg today. 12/12/2017: Will likely need another dose of iron sucrose later in the week. Will Give Vit B12 IM today in light of his severe IBD involving terminal ileum. Will check reticulocyte count in am. 12/13/2017: Will administer another dose of iron sucrose today. Recheck CBC with reticulocyte count in am. 12/13/2017: administered iron sucrose today. Part of anemia could be dilutional from perioop fluids and fluid resuscitation for treatment of GRIS. 12/15/2017 Hct stable, asymptomatic. Cont to follow. 12/17/2017: Hct stable. No further transfusion or iron needed. 12/18/2017 9:30: Hematocrit remains stable. 12/19/2017 8:30am: I will check hematocrit in am. (3) Severe protein-energy malnutrition Status: Chronic Hospital Course & Plan: 12/11/2017: Albumin less than 2.0, BMI 19, > 15% weight loss. Will start PPN and supplement Albumin. Should be able to start PO in next few days, if not then will need central line and TPN. Check prealbumin in am. 12/12/2017: Continue PPN and Albumin supplementation. Check prealbumin. Should be able to start enteral nutrition in next few days. 12/13/2017: Continue PPN and Albumin supplementation. Prealbumin pending. Will start enteral nutrition once bowel function returns. 12/14/2017: Advance to full liquid diet and nutritional supplements 12/15/2017 plan as above. Cont PPN. 12/17/2017: repeat pre-albumin pending, DC PPN today. 12/18/2017 9:30am: Tolerating a regular diet nicely 12/19/17 8:30am: Advance to regular diet and encouraged multiple small meals. He is not yet eating/drinking enough to keep up with ileostomy output.. (4) GRIS (acute kidney injury) Status: Resolved Hospital Course & Plan: 12/12/2017: Nonoliguric, creatinine now 1.6. BUN/Cr ratio < 10. Does not appear hypovolemic. Will check urine analysis with smear to look for eosinophils in urine. Check FE Na+, Meds reviewed. Cefoxitin stopped. Check renal ultrasound in light of known nephrolithiasis to rule out obstruction. 12/13/2017: Creatinine down to 1.4. Work up negative. Will recheck labs in am. 12/14: Cr down to 1.1 12/15/2017 improved, cont to follow UOP and creat closely. 12/17/2017: creat 0.8 with adequate UOP, cont to follow closely. 12/18/2017 9:30: Creatinine yesterday 0.8. Recheck in am. Voids not recorded in volumes. 12/19/2017 8:30am: Recheck lab in am. Departure Discharge to: Home, Self Care Discharge Instructions Follow up Referrals: General Surgery - 12/31/17 @ Surgery, General with ADILIA FORMAN MD You have a follow up appointment scheduled with Dr. Forman on 12/31/17, at 10:45am. Hematology and Oncology - 12/31/17 @ [facility] with ERNESTINE DILLON MD You have an appointment with the cancer specialist (oncologist) Dr. Denys Brandon on 12/31/17, at 8:00am. Diet: Regular Activity: No Heavy Lifting Special Instructions: You may shower as desired but don't immerse the incision for 2 weeks. Keep the steristrips in place until they fall off on their own; it is OK to get them wet in the shower. Avoid any activity that involves straining or lifting more than 10 pounds for 6 weeks after your surgery. Problem Qualifiers (1) Iron deficiency anemia: Iron deficiency anemia type: chronic blood loss Qualified Codes: D50.0 - Iron deficiency anemia secondary to blood loss (chronic) ADILIA FORMAN MD Dec 21, 2017 11:26
== END 2017-12-21 13:03 | disposition home health service (06) | DRG 326 ==
LOC: ER 14:53 → MED 17:50
PROVIDERS: ADMIT Surgery; ATTEND Surgery
PROC: BW41ZZZ Ultrasonography of Abdomen and Pelvis (ICD-10-PCS; 2017-12-09)
PROC: 0D1B0Z4 Bypass Ileum to Cutaneous, Open Approach (ICD-10-PCS; 2017-12-10)
PROC: 30243N1 Transfusion of Nonautologous Red Blood Cells into Central Vein, Percutaneous Approach (ICD-10-PCS; 2017-12-10)
PROC: 0DBB8ZX Excision of Ileum, Via Natural or Artificial Opening Endoscopic, Diagnostic (ICD-10-PCS; 2017-12-10)
PROC: 0DBF0ZZ Excision of Right Large Intestine, Open Approach (ICD-10-PCS; principal; 2017-12-10 08:32)
PROC: 0DB60ZZ Excision of Stomach, Open Approach (ICD-10-PCS; 2017-12-10 08:32)
PROC: 0FT40ZZ Resection of Gallbladder, Open Approach (ICD-10-PCS; 2017-12-10 08:32)
DX: C18.4 Malignant neoplasm of transverse colon (principal); E43 Unspecified severe protein-calorie malnutrition; N17.9 Acute kidney failure, unspecified; N13.2 Hydronephrosis with renal and ureteral calculous obstruction; Z68.1 Body mass index [BMI] 19.9 or less, adult; K50.10 Crohn's disease of large intestine without complications; R64 Cachexia; D50.0 Iron deficiency anemia secondary to blood loss (chronic); Z93.2 Ileostomy status; Z87.891 Personal history of nicotine dependence
CPT/HCPCS: 36415; 36430; 71045; 71046; 74022; 74176; 76700; 76705; 81001; 81015; 82040; 82247; 82274; 82310; 82374; 82378; 82435; 82565; 82575; 82947; 83605; 83690; 83735; 84075; 84100; 84132; 84134; 84155; 84295; 84300; 84450; 84460; 84520; 85007; 85025; 85027; 85045; 85610; 85730; 86850; 86900; 86901; 86920; 88304; 88305; 88307; 88309; 88331; 88332; 88344; 93005; 96374; 96375; 97161; 99285; A4406; C9113; J0131; J0694; J1100; J1170; J1650; J1756; J1885; J1956; J2001; J2270; J2405; J2704; J2765; J2795; J3010; J3420; J3480; J3490; J7030; J7040; J7050; J7120; P9016; P9047

== ENCOUNTER 2017-12-20 10:41 | Outpatient (RCR) | payer BC ==
[2017-12-10 09:28] VITALS: BMI 19.4
--- NOTE | 2017-12-22 11:03 | Transitional Care Management ---
Assessment Visit Type: Telephone Visit (12/22 Silas) Cardiac: WNL Respiratory: WNL GI: Nutrition: WNL Except GI Comment: 12/22 not really hungery but doing OK! : WNL Except Comment: 12/22 Has not had to change colostomy since getting home but thinks he would do ok if he had to. I tiold him I would help him tomorrow if he had any questions. Musculoskeletal, Exercise: WNL Except Musculoskeletal, Excercise Com: 12/22 atill a little weak but up more this morning. Enc him to move around but not over do for the next couple of days. Feeling of Well Being: WNL Socialization: WNL Scheduled Follow-Up with [facility]: Yes (12/[address] Forman on 12/[address] Brandon on 12/31 at 0800) Following Discharge Instructio: Yes TCM Discharge Criteria Transitional Care Comment: 12/15 Asked by his nurse to assist with colostomy teaching. Model brought to pt and nurse demo changing wafer using template, wafer, adhesive prep pad, paste and bag. pt able to return demo with scissors and work through scenerios i.e. gas buildup/prevention, leaking 12/22 Is staying with his Mother at this time for a few days. Feels like he is doing "OK" Has not heard from [employer] as of yet but thinks they are to contact him tody of tomorrow. Denies any complaints at this time. Will visit him tomorrow at 1000. 12/20 He consents to the program and home visit for educational support for ostomy management. He will change his appliance with nurse before discharge, and I will follow up with him afterward. On his home visit, he will change his appliance with the N nurse for support. Copies to: ADILIA FORMAN MD ; MARY MERAZ Dec 22, 2017 11:03
--- NOTE | 2017-12-23 11:41 | Transitional Care Management ---
Assessment Visit Type: Home Visit (12/23) Cardiac: WNL Respiratory: WNL GI: Nutrition: WNL Except GI Comment: 12/22 not really hungery but doing OK! 12/23 Pt very thin-states has recently lost 30#. Has been eating 6 small meals and drinking boost between. Enc him to eat protiens and fiber. Weight Comment: 12/23 See above : WNL Except Comment: 12/22 Has not had to change colostomy since getting home but thinks he would do ok if he had to. I iold him I would help him tomorrow if he had any questions. 12/23 Colostomy looks good and secure-no drainage note around the plate. Stool is of medium>loose output. He continues to feel he would do "OK" if need be! [facility] to visit today at about 1300. Musculoskeletal, Exercise: WNL Except Musculoskeletal, Excercise Com: 12/22 atill a little weak but up more this morning. Enc him to move around but not over do for the next couple of days. 12/23 States "I still feel weak" I enc him to get up and move around to avoid constipation and pneu. He stated"I have been several of times to walk around the block and I move around her in the house frequently. I'm used to moving around and sitting and lying around gets old!" Integumentary: WNL Feeling of Well Being: WNL Socialization: WNL Scheduled Follow-Up with [facility]: Yes (12/[address] Koroma on 12/[address] Brandon on 12/31 at 0800) Community Resources/HHC: 12/23 [facility] Already has visits with Dr Koroma and Ayo galeana for next week. Discussed HUNTER with him if he needed assistance. Following Discharge Instructio: Yes TCM Discharge Criteria Medication Knowledge: 12/23 No meds at this time. Red/Yellow Flags: 12/23 went over skin breakdown and constipation. Transitional Care Comment: 12/15 Asked by his nurse to assist with colostomy teaching. Model brought to pt and nurse demo changing wafer using template, wafer, adhesive prep pad, paste and bag. pt able to return demo with scissors and work through scenerios i.e. gas buildup/prevention, leaking 12/22 Is staying with his Mother at this time for a few days. Feels like he is doing "OK" Has not heard from [employer] as of yet but thinks they are to contact him tody of tomorrow. Denies any complaints at this time. Will visit him tomorrow at 1000. 12/23Silas appears to be doing ok. He is staying at his sisters house at this time but will be returning to his home the first of next week. He does have lots of family support but enc hime to [facility] or SS at the cancer center. He is an employee of [employer]. He states he likes to read and work on the computer. Also enc him to try some puzzles to keep himself active. 12/20 He consents to the program and home visit for educational support for ostomy management. He will change his appliance with nurse before discharge, and I will follow up with him afterward. On his home visit, he will change his appliance with the [facility] nurse for support. MARY MERAZ Dec 23, 2017 11:41
--- NOTE | 2017-12-29 14:04 | Transitional Care Management ---
Assessment Visit Type: Telephone Visit (12/29) Cardiac: WNL Respiratory: WNL GI: Nutrition: WNL Except GI Comment: 12/22 not really hungery but doing OK! 12/23 Pt very thin-states has recently lost 30#. Has been eating 6 small meals and drinking boost between. Enc him to eat protiens and fiber. 12/29 Eating has improved with 6 small meals a day. "Have gained wt and now wt 110#" Weight Comment: 12/23 See above : WNL Except Comment: 12/22 Has not had to change colostomy since getting home but thinks he would do ok if he had to. I iold him I would help him tomorrow if he had any questions. 12/23 Colostomy looks good and secure-no drainage note around the plate. Stool is of medium>loose output. He continues to feel he would do "OK" if need be! [facility] to visit today at about 1300. 12/29 Has been manageing ostomy care on own as HH came last week and is now having trouble with Insurance so not been there this week. Musculoskeletal, Exercise: WNL Except Musculoskeletal, Excercise Com: 12/22 atill a little weak but up more this morning. Enc him to move around but not over do for the next couple of days. 12/23 States "I still feel weak" I enc him to get up and move around to avoid constipation and pneu. He stated"I have been several of times to walk around the block and I move around her in the house frequently. I'm used to moving around and sitting and lying around gets old!" 12/29 Since it has been nice this past week I have been outside walking around some. I get tired quickly but think I'm inproving." Integumentary: WNL Feeling of Well Being: WNL Socialization: WNL Scheduled Follow-Up with [facility]: Yes (12/[address] Forman on 12/[address] Brandon on 12/31 at 0800) Community Resources/HHC: 12/23 [facility] Already has Dr visits with Dr Forman and Ayo galeana for next week. Discussed HUNTER with him if he needed assistance. Following Discharge Instructio: Yes TCM Discharge Criteria Medication Knowledge: 12/23 No meds at this time. Red/Yellow Flags: 12/23 went over skin breakdown and constipation. Transitional Care Comment: 12/15 Asked by his nurse to assist with colostomy teaching. Model brought to pt and nurse demo changing wafer using template, wafer, adhesive prep pad, paste and bag. pt able to return demo with scissors and work through scenerios i.e. gas buildup/prevention, leaking 12/22 Is staying with his Mother at this time for a few days. Feels like he is doing "OK" Has not heard from [employer] company as of yet but thinks they are to contact him tody of tomorrow. Denies any complaints at this time. Will visit him tomorrow at 1000. 12/23Silas appears to be doing ok. He is staying at his sisters house at this time but will be returning to his home the first of next week. He does have lots of family support but enc hime to [facility] or SS at the cancer center. He is an employee of [employer]. He states he likes to read and work on the computer. Also enc him to try some puzzles to keep himself active. 12/20 He consents to the program and home visit for educational support for ostomy management. He will change his appliance with nurse before discharge, and I will follow up with him afterward. On his home visit, he will change his appliance with the [facility] nurse for support. 12/29 Pt frustrated about his [employer] insurance as [facility] have been unable to verify and threfore hasn't come to visit this week and is having difficulties getting ostomy suppplies. He is going to call [facility] at this time ti see if they can help him with insurance. Copies to: ADILIA FORMAN MD ; MARY MERAZ Dec 29, 2017 14:04
--- NOTE | 2018-01-01 13:18 | Transitional Care Management ---
Assessment Visit Type: Telephone Visit (01/01) Cardiac: WNL Respiratory: WNL GI: Nutrition: WNL Except GI Comment: 12/22 not really hungery but doing OK! 12/23 Pt very thin-states has recently lost 30#. Has been eating 6 small meals and drinking boost between. Enc him to eat protiens and fiber. 12/29 Eating has improved with 6 small meals a day. "Have gained wt and now wt 110#" Weight Comment: 12/23 See above : WNL Except Comment: 12/22 Has not had to change colostomy since getting home but thinks he would do ok if he had to. I iold him I would help him tomorrow if he had any questions. 12/23 Colostomy looks good and secure-no drainage note around the plate. Stool is of medium>loose output. He continues to feel he would do "OK" if need be! [facility] to visit today at about 1300. 12/29 Has been manageing ostomy care on own as HH came last week and is now having trouble with Insurance so not been there this week. Musculoskeletal, Exercise: WNL Except Musculoskeletal, Excercise Com: 12/22 atill a little weak but up more this morning. Enc him to move around but not over do for the next couple of days. 12/23 States "I still feel weak" I enc him to get up and move around to avoid constipation and pneu. He stated"I have been several of times to walk around the block and I move around her in the house frequently. I'm used to moving around and sitting and lying around gets old!" 12/29 Since it has been nice this past week I have been outside walking around some. I get tired quickly but think I'm inproving." Integumentary: WNL Feeling of Well Being: WNL Socialization: WNL Scheduled Follow-Up with Provi: Yes (12/[address] Koroma on 12/[address] Brandon on 12/31 at 0800) Community Resources/HHC: 12/23 [facility] Already has Dr visits with Dr Koroma and Ayo galeana for next week. Discussed HUNTER with him if he needed assistance. Following Discharge Instructio: Yes TCM Discharge Criteria Medication Knowledge: 12/23 No meds at this time. Red/Yellow Flags: 12/23 went over skin breakdown and constipation. Transitional Care Comment: 12/15 Asked by his nurse to assist with colostomy teaching. Model brought to pt and nurse migelo changing wafer using template, wafer, adhesive prep pad, paste and bag. pt able to return demo with scissors and work through scenerios i.e. gas buildup/prevention, leaking 12/22 Is staying with his Mother at this time for a few days. Feels like he is doing "OK" Has not heard from [employer] company as of yet but thinks they are to contact him tody of tomorrow. Denies any complaints at this time. Will visit him tomorrow at 1000. 12/23Silas appears to be doing ok. He is staying at his sisters house at this time but will be returning to his home the first of next week. He does have lots of family support but enc hime to [facility] or SS at the cancer center. He is an employee of [employer]. He states he likes to read and work on the computer. Also enc him to try some puzzles to keep himself active. 12/20 He consents to the program and home visit for educational support for ostomy management. He will change his appliance with nurse before discharge, and I will follow up with him afterward. On his home visit, he will change his appliance with the N nurse for support. 12/29 Pt frustrated about his [employer] insurance as [employer] and [employer] have been unable to verify and threfore hasn't come to visit this week and is having difficulties getting ostomy suppplies. He is going to call [facility] at this time ti see if they can help him with insurance. 01/01 [employer] has not fouind out anything from his insurance so they have not been visiting. Silas was unable to get any supplies from [employer] d/t the same problem so he just bought a few supplies himself. Change the bag the other day and said it was a big challenge but he finally got it there, I told him I would visit him on Wednesday afternoon to assist him. I will see what follow up I can find out about his insurance. Copies to: ; MARY MERAZ Jan 01, 2018 13:18
--- NOTE | 2018-01-04 08:50 | Transitional Care Management ---
Assessment Cardiac: WNL Respiratory: WNL GI: Nutrition: WNL Except GI Comment: 12/22 not really hungery but doing OK! 12/23 Pt very thin-states has recently lost 30#. Has been eating 6 small meals and drinking boost between. Enc him to eat protiens and fiber. 12/29 Eating has improved with 6 small meals a day. "Have gained wt and now wt 110#" Weight Comment: 12/23 See above : WNL Except Comment: 12/22 Has not had to change colostomy since getting home but thinks he would do ok if he had to. I iold him I would help him tomorrow if he had any questions. 12/23 Colostomy looks good and secure-no drainage note around the plate. Stool is of medium>loose output. He continues to feel he would do "OK" if need be! [facility] to visit today at about 1300. 12/29 Has been manageing ostomy care on own as HH came last week and is now having trouble with Insurance so not been there this week. Musculoskeletal, Exercise: WNL Except Musculoskeletal, Excercise Com: 12/22 atill a little weak but up more this morning. Enc him to move around but not over do for the next couple of days. 12/23 States "I still feel weak" I enc him to get up and move around to avoid constipation and pneu. He stated"I have been several of times to walk around the block and I move around her in the house frequently. I'm used to moving around and sitting and lying around gets old!" 12/29 Since it has been nice this past week I have been outside walking around some. I get tired quickly but think I'm inproving." Integumentary: WNL Feeling of Well Being: WNL Socialization: WNL Scheduled Follow-Up with Provi: Yes (12/[address] Koroma on 12/[address] Brandon on 12/31 at 0800) Community Resources/HHC: 12/23 [facility] Already has Dr visits with Dr Koroma and Ayo galeana for next week. Discussed HUNTER with him if he needed assistance. Following Discharge Instructio: Yes TCM Discharge Criteria Medication Knowledge: 12/23 No meds at this time. Red/Yellow Flags: 12/23 went over skin breakdown and constipation. Transitional Care Comment: 12/15 Asked by his nurse to assist with colostomy teaching. Model brought to pt and nurse demo changing wafer using template, wafer, adhesive prep pad, paste and bag. pt able to return demo with scissors and work through scenerios i.e. gas buildup/prevention, leaking 12/22 Is staying with his Mother at this time for a few days. Feels like he is doing "OK" Has not heard from [employer] company as of yet but thinks they are to contact him tody of tomorrow. Denies any complaints at this time. Will visit him tomorrow at 1000. 12/23Silas appears to be doing ok. He is staying at his sisters house at this time but will be returning to his home the first of next week. He does have lots of family support but enc hime to [facility] or SS at the cancer center. He is an employee of [email or web address] He states he likes to read and work on the computer. Also enc him to try some puzzles to keep himself active. 12/20 He consents to the program and home visit for educational support for ostomy management. He will change his appliance with nurse before discharge, and I will follow up with him afterward. On his home visit, he will change his appliance with the N nurse for support. 12/29 Pt frustrated about his [employer] insurance as [employer] and [employer] have been unable to verify and threfore hasn't come to visit this week and is having difficulties getting ostomy suppplies. He is going to call [facility] at this time ti see if they can help him with insurance. 01/01 [employer] has not fouind out anything from his insurance so they have not been visiting. Silas was unable to get any supplies from [employer] d/t the same problem so he just bought a few supplies himself. Change the bag the other day and said it was a big challenge but he finally got it there, I told him I would visit him on Wednesday afternoon to assist him. I will see what follow up I can find out about his insurance. 01/03 I have done some follow up on Silas's insurance. His insurance will pay 80%and Silas does not have any way to pay the 20%. He did purchase some ostomy bags and other equipment. I encouraged him to go back to [facility] and let his insurance pay he 80% and ask his family to help him pay the 20%. I also enc him to go to [facility] and see if they could help. Also told him to call [facility].. He has an appointment with [facility] this week. MARY MERAZ Jan 04, 2018 08:50
[2018-01-05] MEDS ORDERED: PROC10TA4 PO (12:42)
[2018-01-05] MEDS ORDERED: ONDA4TAB PO (12:42)
[2018-01-05] MEDS ORDERED: FERR-53 PO (12:42)
[2018-01-05] MEDS ORDERED: LORA-1455 PO (12:42)
[2018-01-06] MEDS ORDERED: OXYC-854 PO (11:30)
--- NOTE | 2018-01-10 13:12 | Transitional Care Management ---
Assessment Visit Type: Telephone Visit (01/10 Silas) Cardiac: WNL Respiratory: WNL GI: Nutrition: WNL Except GI Comment: 12/22 not really hungery but doing OK! 12/23 Pt very thin-states has recently lost 30#. Has been eating 6 small meals and drinking boost between. Enc him to eat protiens and fiber. 12/29 Eating has improved with 6 small meals a day. "Have gained wt and now wt 110#" 01/10 eating well and has gained a couple more #"No problem eating" Weight Comment: 12/23 See above : WNL Except Comment: 12/22 Has not had to change colostomy since getting home but thinks he would do ok if he had to. I iold him I would help him tomorrow if he had any questions. 12/23 Colostomy looks good and secure-no drainage note around the plate. Stool is of medium>loose output. He continues to feel he would do "OK" if need be! [facility] to visit today at about 1300. 12/29 Has been manageing ostomy care on own as HH came last week and is now having trouble with Insurance so not been there this week. 01/10 Bought out of pocket his colostomy bags and other needs as he has been uable to understand why [facility] has not been paying. Musculoskeletal, Exercise: WNL Except Musculoskeletal, Excercise Com: 12/22 atill a little weak but up more this morning. Enc him to move around but not over do for the next couple of days. 12/23 States "I still feel weak" I enc him to get up and move around to avoid constipation and pneu. He stated"I have been several of times to walk around the block and I move around her in the house frequently. I'm used to moving around and sitting and lying around gets old!" 12/29 Since it has been nice this past week I have been outside walking around some. I get tired quickly but think I'm inproving." 01/10 Getting stronger and go for a short each morning- "Just to get out and get some fresh air." Integumentary: WNL Feeling of Well Being: WNL Socialization: WNL Scheduled Follow-Up with Provi: Yes (12/[address] Koroma on 12/[address] Brandon on 12/31 at 0800) [facility]: 12/[address] [facility] [address] visits with Dr Koroma and Ayo galeana for next week. Discussed SVETLANA with him if he needed assistance. 01/[address] Montoya who thinks he is cooming along good" and He will start raditation next week. Following Discharge Instructio: Yes TCM Discharge Criteria Medication Knowledge: 12/23 No meds at this time. Red/Yellow Flags: 12/23 went over skin breakdown and constipation. Transitional Care Comment: 12/15 Asked by his nurse to assist with colostomy teaching. Model brought to pt and nurse demo changing wafer using template, wafer, adhesive prep pad, paste and bag. pt able to return demo with scissors and work through scenerios i.e. gas buildup/prevention, leaking 12/22 Is staying with his Mother at this time for a few days. Feels like he is doing "OK" Has not heard from company as of yet but thinks they are to contact him tody of tomorrow. Denies any complaints at this time. Will visit him tomorrow at 1000. 12/23Silas appears to be doing ok. He is staying at his sisters house at this time but will be returning to his home the first of next week. He does have lots of family support but enc hime to Svetlana or SS at the cancer center. He is an employee of [employer]. He states he likes to read and work on the computer. Also enc him to try some puzzles to keep himself active. 12/20 He consents to the program and home visit for educational support for ostomy management. He will change his appliance with nurse before discharge, and I will follow up with him afterward. On his home visit, he will change his appliance with the [facility] nurse for support. 12/29 Pt frustrated about his [employer] insurance as [employer] and [employer] have been unable to verify and threfore hasn't come to visit this week and is having difficulties getting ostomy suppplies. He is going to call [employer] at this time ti see if they can help him with insurance. 01/01 [facility] [facility] has not fouind out anything from his insurance so they have not been visiting. Silas was unable to get any supplies from [employer] d/t the same problem so he just bought a few supplies himself. Change the bag the other day and said it was a big challenge but he finally got it there, I told him I would visit him on Wednesday afternoon to assist him. I will see what follow up I can find out about his insurance. 01/03 I have done some follow up on Silas's insurance. His insurance will pay 80%and Silas does not have any way to pay the 20%. He did purchase some ostomy bags and other equipment. I encouraged him to go back to [facility] and let his insurance pay he 80% and ask his family to help him pay the 20%. I also enc him to go to [facility] and see if they could help. Also told him to call [facility].. [facility] this [facility]. 01/10 Silas is back in his own home and his mother acrolina returned to [facility]. He is pretty much yahaira at this time and states he thinks he is doing pretty good. Saw the Drs this week and will start radation next week. He is still worried about [employer] helping him but he will call them himself this week. He hopes to be able to return to work soon. Feels "OK' with everything at this. I have encouraged him to call [employer]> MARY MERAZ Jan 10, 2018 13:12
--- NOTE | 2018-01-17 13:59 | Transitional Care Management ---
Assessment Cardiac: WNL Respiratory: WNL GI: Nutrition: WNL Except GI Comment: 12/22 not really hungery but doing OK! 12/23 Pt very thin-states has recently lost 30#. Has been eating 6 small meals and drinking boost between. Enc him to eat protiens and fiber. 12/29 Eating has improved with 6 small meals a day. "Have gained wt and now wt 110#" 01/10 eating well and has gained a couple more #"No problem eating" 01/17 states he's "got the hang of it" (managing colostomy). Eating better Weight Comment: 12/23 See above : WNL Except Comment: 12/22 Has not had to change colostomy since getting home but thinks he would do ok if he had to. I iold him I would help him tomorrow if he had any questions. 12/23 Colostomy looks good and secure-no drainage note around the plate. Stool is of medium>loose output. He continues to feel he would do "OK" if need be! [facility] to visit today at about 1300. 12/29 Has been manageing ostomy care on own as HH came last week and is now having trouble with Insurance so not been there this week. 01/10 Bought out of pocket his colostomy bags and other needs as he has been uable to understand why [facility] has not been paying. Musculoskeletal, Exercise: WNL Except Musculoskeletal, Excercise Com: 12/22 atill a little weak but up more this morning. Enc him to move around but not over do for the next couple of days. 12/23 States "I still feel weak" I enc him to get up and move around to avoid constipation and pneu. He stated"I have been several of times to walk around the block and I move around her in the house frequently. I'm used to moving around and sitting and lying around gets old!" 12/29 Since it has been nice this past week I have been outside walking around some. I get tired quickly but think I'm inproving." 01/10 Getting stronger and go for a short each morning- "Just to get out and get some fresh air." Mobility Comment: 01/17 getting around ok and feeling better Integumentary: WNL Integumentary Comment: 01/17 states he has had info on radiation s.e. Starts 01/19. will report any skin breakdown, NV or pain immediately to providers Feeling of Well Being: WNL Feeling of Well Being Comment: 01/17 had copays. Instruct to call pt financial assist at [facility] or talk to Verna at [facility] for needs Socialization: WNL Pain/Management Comment: denies Scheduled Follow-Up with Provi: Yes (12/[address] Koroma on 12/[address] Brandon on 12/31 at 0800) [facility]: 12/23 [facility] Already has Dr visits with Dr Koroma and Ayo galeana for next week. Discussed [facility]NA with him if he needed assistance. 01/[address] Montoya who thinks he is cooming along good" and He will start raditation next week. 01/17 [facility]. has had f/u with providers Following Discharge Instructio: Yes TCM Discharge Criteria Medication Knowledge: 12/23 No meds at this time. 01/17 only taking iron supp Red/Yellow Flags: 12/23 went over skin breakdown and constipation. Transitional Care Comment: 12/15 Asked by his nurse to assist with colostomy teaching. Model brought to pt and nurse demo changing wafer using template, wafer, adhesive prep pad, paste and bag. pt able to return demo with scissors and work through scenerios i.e. gas buildup/prevention, leaking 12/22 Is staying with his Mother at this time for a few days. Feels like he is doing "OK" Has not heard from company as of yet but thinks they are to contact him tody of tomorrow. Denies any complaints at this time. Will visit him tomorrow at 1000. 12/23Silas appears to be doing ok. He is staying at his sisters house at this time but will be returning to his home the first of next week. He does have lots of family support but enc hime to Svetlana or SS at the cancer center. He is an employee of [employer]. He states he likes to read and work on the computer. Also enc him to try some puzzles to keep himself active. 12/20 He consents to the program and home visit for educational support for ostomy management. He will change his appliance with nurse before discharge, and I will follow up with him afterward. On his home visit, he will change his appliance with the [facility] nurse for support. 12/29 Pt frustrated about his [employer] insurance as [facility] and [employer] have been unable to verify and threfore HH hasn't come to visit this week and is having difficulties getting ostomy suppplies. He is [facility] at this time ti see if they can help him with insurance. 01/01 [facility] has not fouind out anything from his insurance so they have not been visiting. Silas was unable to get any supplies from [employer] d/t the same problem so he just bought a few supplies himself. Change the bag the other day and said it was a big challenge but he finally got it there, I told him I would visit him on Wednesday afternoon to assist him. I will see what follow up I can find out about his insurance. 01/03 I have done some follow up on Silas's insurance. His insurance will pay 80%and Silas does not have any way to pay the 20%. He did purchase some ostomy bags and other equipment. I encouraged him to go back to [facility] and let his insurance pay he 80% and ask his family to help him pay the 20%. I also enc him to go to [facility] and see if they could help. Also told him to call [facility].. [facility] an [facility] with [facility] this [facility]. 01/10 Silas is back in his own home and his mother carolina returned to [facility]. He is pretty much yahaira at this time and states he thinks he is doing pretty good. Saw the Drs this week and will start radation next week. He is still worried about [employer] helping him but he will call them himself this week. He hopes to be able to return to work soon. Feels "OK' with everything at this. I have encouraged him to call [employer]> 01/17 managing well, has FMLA till 01/20 and talks to MD on 01/19 about return to work vs. cont leave now he is starting rad tx. Managing ostomy. Has port. Agree to f/u next week. BART GARNICA Jan 17, 2018 13:59
[2018-01-19] MEDS ORDERED: PROC10TA4 PO (12:50)
[2018-01-19] MEDS ORDERED: LORA-1455 PO (12:52)
[2018-01-19] MEDS ORDERED: ONDA-2 PO (12:53)
--- NOTE | 2018-01-26 14:21 | Transitional Care Management ---
Assessment Visit Type: Telephone Visit (01/26 Silas) Cardiac: WNL Respiratory: WNL GI: Nutrition: WNL Except GI Comment: 12/22 not really hungery but doing OK! 12/23 Pt very thin-states has recently lost 30#. Has been eating 6 small meals and drinking boost between. Enc him to eat protiens and fiber. 12/29 Eating has improved with 6 small meals a day. "Have gained wt and now wt 110#" 01/26 cont to eat small meals and has put on a few more lbs. 01/10 eating well and has gained a couple more #"No problem eating" 01/17 states he's "got the hang of it" (managing colostomy). Eating better Weight Comment: 12/23 See above : WNL Except Comment: 12/22 Has not had to change colostomy since getting home but thinks he would do ok if he had to. I iold him I would help him tomorrow if he had any questions. 12/23 Colostomy looks good and secure-no drainage note around the plate. Stool is of medium>loose output. He continues to feel he would do "OK" if need be! [facility] to visit today at about 1300. 12/29 Has been manageing ostomy care on own as HH came last week and is now having trouble with Insurance so not been there this week. 01/10 Bought out of pocket his colostomy bags and other needs as he has been uable to understand why [employer] has not been paying. 01/26 doing much better with colonoscopy bag changes. Got [facility] straightened out and has been able to get equipment with a very small co pay. Musculoskeletal, Exercise: WNL Except Musculoskeletal, Excercise Com: 12/22 atill a little weak but up more this morning. Enc him to move around but not over do for the next couple of days. 12/23 States "I still feel weak" I enc him to get up and move around to avoid constipation and pneu. He stated"I have been several of times to walk around the block and I move around her in the house frequently. I'm used to moving around and sitting and lying around gets old!" 12/29 Since it has been nice this past week I have been outside walking around some. I get tired quickly but think I'm inproving." 01/10 Getting stronger and go for a short each morning- "Just to get out and get some fresh air." 01/26 Has increased his activity on nice days as he likes to go for walks. Feels as though he is getting stronger and doing better Mobility Comment: 01/17 getting around ok and feeling better Integumentary: WNL Integumentary Comment: 01/17 states he has had info on radiation s.e. Starts 01/19. will report any skin breakdown, NV or pain immediately to providers Feeling of Well Being: WNL Feeling of Well Being Comment: 01/17 had copays. Instruct to call pt financial assist at [facility] or talk to Verna at [facility] for needs Socialization: WNL Pain/Management Comment: denies Scheduled Follow-Up with Provi: Yes (12/[address] Koroma on 12/[address] Brandon on 12/31 at 0800) Community Resources/[facility]: 12/23 [facility] Already has Dr visits with Dr Koroma and Ayo galeana for next week. Discussed [facility] with him if he needed assistance. 01/[address] Montoya who thinks he is cooming along good" and He will start raditation next week. 01/17 [facility] dc. has had f/u with providers Following Discharge Instructio: Yes TCM Discharge Criteria Medication Knowledge: 12/23 No meds at this time. 01/17 only taking iron supp Red/Yellow Flags: 12/23 went over skin breakdown and constipation. Transitional Care Comment: 12/15 Asked by his nurse to assist with colostomy teaching. Model brought to pt and nurse demo changing wafer using template, wafer, adhesive prep pad, paste and bag. pt able to return demo with scissors and work through scenerios i.e. gas buildup/prevention, leaking 12/22 Is staying with his Mother at this time for a few days. Feels like he is doing "OK" Has not heard from company as of yet but thinks they are to contact him tody of tomorrow. Denies any complaints at this time. Will visit him tomorrow at 1000. 12/23Silas appears to be doing ok. He is staying at his sisters house at this time but will be returning to his home the first of next week. He does have lots of family support but enc hime to Svetlana or SS at the cancer center. He is an employee of [employer]. He states he likes to read and work on the computer. Also enc him to try some puzzles to keep himself active. 12/20 He consents to the program and home visit for educational support for ostomy management. He will change his appliance with nurse before discharge, and I will follow up with him afterward. On his home visit, he will change his appliance with the [facility] nurse for support. 12/29 Pt frustrated about his [employer] insurance as [employer] and [employer] have been unable to verify and threfore HH hasn't come to visit this week and is having difficulties getting ostomy suppplies. He is going to call [facility] at this time ti see if they can help him with insurance. 01/01 [employer] has not fouind out anything from his insurance so they have not been visiting. Silas was unable to get any supplies from [employer] d/t the same problem so he just bought a few supplies himself. Change the bag the other day and said it was a big challenge but he finally got it there, I told him I would visit him on Wednesday afternoon to assist him. I will see what follow up I can find out about his insurance. 01/03 I have done some follow up on Silas's insurance. His insurance will pay 80%and Silas does not have any way to pay the 20%. He did purchase some ostomy bags and other equipment. I encouraged him to go back to [facility] and let his insurance pay he 80% and ask his family to help him pay the 20%. I also enc him to go to [facility] and see if they could help. Also told him to call [facility].. He has an appointment with the [facility] this week. 01/10 Silas is back in his own home and his mother carolina returned to [facility]. He is pretty much yahaira at this time and states he thinks he is doing pretty good. Saw the Drs this week and will start radation next week. He is still worried about [employer] helping him but he will call them himself this week. He hopes to be able to return to work soon. Feels "OK' with everything at this. I have encouraged him to call [employer]> 11/12 managing well, has FMLA till 01/20 and talks to MD on 01/19 about return to work vs. cont leave now he is starting rad tx. Managing ostomy. Has port. Agree to f/u next week. 01/26 Had his second infusion today and they stated that his labs were staying stable and he will receive anothr next week. He has no idea when he might return to work-but "not going to gupta it. I want to make sure I'm well before attempting that." I will DC his from our program as he will have assistance from the [facility]. MARY MERAZ Jan 26, 2018 14:21
== END 2018-02-07 07:08 | disposition home or self-care (01) ==
LOC: TCM 10:41
PROVIDERS: ATTEND Nurse Practitioner
DX: Z02.9 Encounter for administrative examinations, unspecified (principal)

== ENCOUNTER → 2018-01-06 | Day surgery (SDC) | payer BC ==
[2017-12-10 09:28] VITALS: Ht 167.6 cm; Wt 52.2 kg
[~2018-01-06] VITALS: Ht 167.6 cm; Wt 52.2 kg
[2018-01-06] VITALS (9 sets, daily range): BP systolic 102–119; BP diastolic 66–80
[~2018-01-06] MED LIST changes: +DEXAMETHASONE SOD 4 MG/ML VIAL ONE; +FAMOTIDINE 20 MG TAB PO ONE; +FERR-53 PO; +HEPARIN SOD LCK FLSH 100 UN/ML ONE; +LIDOCAINE MPF 1% 5 ML VIAL ONE; +LIDOCAINE/SOD BICARB 8.4% SYR ID ONE; +LORA-1455 PO; +MIDAZOLAM 2 MG/2 ML VIAL IVP PRN; +NORMOSOL R SOLN(*) 1000 ML BAG 1,000 ML IV PRN; +NS(*) 0.9% 10 ML VIAL 20 ML ONE; +ONDANSETRON 4 MG/2 ML VIAL ONE; +OXYC-854 PO; +PROC10TA4 PO; +PROPOFOL EMUL(*) 10MG/ML 20 ML 20 ML ONE; +ROPIVACAINE 0.5% 20 ML VIAL ONE; +ceFAZolin(*) 2GM/D5W 50ML 50 ML IVPB ONE; +fentaNYL CITR 100 MCG/2 ML AMP ONE
--- NOTE | 2018-01-06 11:22 | RADIOLOGY IMAGING REPORT ---
FACILITY: [facility] [place] PATIENT NAME: Silas Morris : 1975 MR: [id number] V: [id number] EXAM DATE: ORDERING PHYSICIAN: ADILIA FORMAN TECHNOLOGIST: [place] [facility] [place] : 1975 Visit/Account:[id number] Date of Sevice: 01/06/2018 C-ARM FLUORO PORT/CATH HISTORY: PORT PLACEMTN COMPARISON: X-ray examination December 09 FINDINGS: DOSE: DAP was 0.03 mGy*m2. 2. Images demonstrate right-sided chest port, tip appears at the atrial caval junction. Correlate w ith operative note. IMPRESSION: Right chest port Report Dictated By: Peter Lou MD at 01/06/2018 11:16 AM Report E-Signed By: Peter Lou MD at 01/06/2018 11:18 AM WSN:[email or web address]
--- NOTE | 2018-01-06 11:35 | Short(Outpt) Discharge Summary ---
Discharge Summary Reason for Hosp/Final Diag: (1) Primary colon cancer with invasion or adherence to other organ or structure (T4b) Status: Chronic Hospital Course & Plan: Right IJ Power Port placement completed without problems. Departure Discharge to: Home, Self Care Discharge Instructions Home Meds Active Scripts Oxycodone Hcl/Acet 5/325 Mg (ENDOCET 5-325 TABLET) 1 Each Tablet, 1 TAB PO Q4H PRN for PAIN, #20 TAB 0 Refills Prov:ADILIA FORMAN MD 01/06/18 Reported Medications Lorazepam (ATIVAN) 0.5 Mg Tablet, 0.5 MG PO Take 0.5 to 1 mg by mouth every 6 hours as needed for nausea, anxiety or insomnia 01/05/18 Ondansetron (ZOFRAN ODT) 4 Mg Tab.rapdis, 8 MG PO Q8H PRN for NAUSEA, TAB.AFTAB 01/05/18 Prochlorperazine Maleate (Compazine) 10 Mg Tablet, 10 MG PO PRN for NAUSEA Take every 6-8 hours 01/05/18 Ferrous Sulfate (FERROUS SULFATE) 325 Mg Tablet, 325 MG PO TID with meals 01/05/18 Diet: Regular Special Instructions: You may shower starting on 01/08/18, but don't immerse the incisions for 2 weeks. Leave the incisions open to air but leave the steristrips in place until they fall off on their own. The stitch in your neck "SHOULD" fall out in the next 2 weeks but if it doesn't gently tug on it. If it doesn't come out with a gentle tug, let someone at the cancer center know and they can remove it or call my office at [phone] and we can have you come in to my clinic and we'll remove the suture there. ADILIA FORMAN MD Jan 06, 2018 11:35
--- NOTE | 2018-01-06 11:42 | Post Operative Progress Note ---
Post Operative Progress Note Date: Jan 06, 2018 Time: 11:38 Surgeon: Ga Dictation number: [id number] Anesthesia: LMA by Dr. Fernandez Pre-Op Diagnosis: Colon cancer Post-Op Diagnosis: ROXI Findings: None Procedure(s): Right IJ Power Port placement Specimen Removed:(May be N/A): None Complications: None Fluids: See anesthesia record Estimated Blood Loss: Minimal Date OP Note Dictated: Jan 06, 2018 Time OP Note Dictated: 11:39 ADILIA FORMAN MD Jan 06, 2018 11:42
--- NOTE | 2018-01-06 11:56 | RADIOLOGY IMAGING REPORT ---
FACILITY: [facility] PATIENT NAME: Silas Morris : 1975 MR: [id number] V: [id number] EXAM DATE: ORDERING PHYSICIAN: ADILIA FORMAN TECHNOLOGIST: Location: [facility] [place] Patient: Silas Morris : 1975 Visit/Account:[id number] Date of Sevice: 01/06/2018 Single view of the chest Indication: Right IJ PowerPort. Comparison: Fluoroscopic images from today Findings: Heart size within normal limits. Right IJ port, catheter tip terminates at the cavoatrial junction. Lungs are clear. No pneumothorax or pleural effusion. IMPRESSION: 1. Right-sided chest port as above. No acute finding Report Dictated By: Peter Lou MD at 01/06/2018 11:52 AM Report E-Signed By: Peter Lou MD at 01/06/2018 11:53 AM WSN:[email or web address]
--- NOTE | 2018-01-06 14:28 | OPERATIVE REPORT 1 ---
EVENT DATE: January 06, 2018 SURGEON: Chandler Koroma MD ANESTHESIOLOGIST: Cosme Fernandez MD ANESTHESIA: LMA. PREOPERATIVE DIAGNOSIS Colon cancer. POSTOPERATIVE DIAGNOSIS Colon cancer. PROCEDURE PERFORMED Right internal jugular PowerPort placement. COMPLICATIONS None. CONDITION Stable. BLOOD LOSS Minimal. INDICATIONS This is a 42-year-old gentleman who was recently admitted to the hospital with a mass in his transverse colon. He underwent surgical resection to include an extended right hemicolectomy to the proximal descending colon with an end ileostomy. Preoperative endoscopy revealed evidence of Crohn disease. He has recovered well from surgery, but now is undergoing chemotherapy. I have been requested to place a PowerPort to facilitate this. DESCRIPTION OF PROCEDURE The patient was brought to the operating room and placed supine on the operating table. LMA anesthesia was administered, and his right neck, chest, and shoulder were prepped and draped in a sterile fashion. Timeout was completed. With the patient in Trendelenburg, I used ultrasound to identify the right internal jugular vein. I then used the access needle and accessed the vein in one attempt. I threaded the wire through the needle and removed the needle. I used the C-arm fluoroscope to position the wire in the SVC above the right atrium. I then anesthetized his skin in the neck and then in the right infraclavicular skin. I made a stab incision in the neck where the wire entered the skin and then made a transverse incision in the right infraclavicular skin crease. I dissected through the dermis with electrocautery and into the subcutaneous fat down to the muscle fascia. I then created a pocket caudad to the skin incision and made sure this was hemostatic. I used a tunneler and dragged the catheter from the pocket up into the stab incision in the neck. Then, with the patient in Trendelenburg, I threaded the dilator and sheath over the wire, removed the dilator wire, then threaded the catheter through the sheath, and removed the sheath. I then used the C-arm fluoroscope to position the tip of the catheter in the SVC just above the right atrium. I then cut the catheter to length, placed the port on the catheter, and locked it in place with a locking cup. I then sutured the port down to the underlying muscle fascia with 2-0 nylon at the corners and then took some more C-arm images, and the position of the port looked great with no kinks or twists. The tip was in the SVC just above the right atrium. I then aspirated blood through the port and catheter and then flushed it with 10 mL of saline, followed by 5 mL of 100 units/mL of heparinized saline. It aspirated and flushed with no problems. I then closed the stab incision in the neck with a single 3-0 chromic suture, and the right infraclavicular incision was closed with interrupted 3-0 Vicryl deep dermal sutures and 4-0 Monocryl running subcuticular suture. Skin was cleaned and dried, and Steri-Strips were applied across each incision. The patient was then awakened and LMA removed. He was transferred to the recovery room in stable condition having tolerated the procedure without any apparent problems. TINO
== END ==
LOC: OR 00:48
PROVIDERS: ATTEND Surgery
DX: C18.9 Malignant neoplasm of colon, unspecified (principal)
CPT/HCPCS: 36561; 71045; 77001; J1100; J2001; J2250; J2405; J2704; J2795; J3010; C1788; J0690

== ENCOUNTER 2018-03-30 08:25 | Outpatient (RCR) | payer BC ==
[2017-12-10 09:28] VITALS: Ht 167.6 cm; Wt 60.6 kg
[2017-12-31 08:08] VITALS: BP 108/73
--- NOTE | 2017-12-31 08:22 | NUR ---
YONATAN visited briefly with the patient at his consult appointment today.
--- NOTE | 2017-12-31 09:11 | NUR ---
YONATAN visited with pt's mother who indicated she would be coming to live with the patient while he was getting chemotherapy treatment. She is from [place]. YONATAN will look into any resources to assist her with travel or other associated costs.
--- NOTE | 2017-12-31 10:38 | ONCOLOGY CONSULTATION ---
EVENT DATE: December 31, 2017 REFERRING PHYSICIAN: Chandler Koroma M.D. REASON FOR CONSULTATION Evaluation and management of colon cancer. ONCOLOGY HISTORY Patient is a 42-year-old male who presented with right renal colic and bloody stools for about two days prior to his presentation so the patient came to the emergency department at [facility] in [place] and CT abdomen and pelvis done on December 09, 2017 showed 4 mm obstructing calculus in the upper right ureter near the UPJ with mild right hydronephrosis with nonobstructing calculi in both kidneys. Transverse colon mass is noted with extracolonic soft tissue attenuation. It appears to invade the anterior abdominal wall and gastric antrum with some colonic obstruction with possible inflammatory ileitis with bilateral sacroiliac joint ankylosis, suggestive of Crohn's disease. There was also an exophytic lesion 2.7 cm from the lower pole of the left kidney. Patient also was found to have iron deficiency anemia. On December 10, 2017, patient had extended right colectomy with en tacho resection of the greater curvature of the stomach and anterior abdominal wall with cholecystectomy and end ileostomy and the pathology came back positive for invasive mucinous adenocarcinoma of the colon, low grade, with invasion through the serosa and into the pericolonic fat with negative margins. Twenty-two lymph nodes were negative for metastasis. MSI high was negative. When asking Dr. Koroma, the surgeon, it seems that the mass was actually invading the anterior abdominal wall and the stomach so it is a T4 lesion. The stage is stage 2 (pT4 pN0 cM0) and 22 lymph nodes were negative for metastasis. PAST MEDICAL HISTORY 1. Renal stones. 2. Inflammatory bowel disease for nearly 20 years but patient was not diagnosed but he has had colonic symptoms for about 20 years now with rare bloody stools. PAST SURGICAL HISTORY Extended right colectomy on December 10, 2017. FAMILY HISTORY Father had blood disorder that seems to be polycythemia as he was donating blood frequently. Maternal cousin with colon cancer. Paternal grandfather ; he had prostate cancer. SOCIAL HISTORY Patient is single with no children. 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 He quit tobacco 15 year ago after one pack every four days for six years. He quit alcohol five years ago. No abuse of illicit drugs. CURRENT MEDICATIONS Ferrous sulfate 315 mg three times daily with meals. ALLERGIES No known drug allergies. REVIEW OF SYSTEMS CONSTITUTIONAL: Patient had lost of weight. He lost weight before surgery but his current weight is about 30 pounds loss. He has started to gain some weight lately. HEENT: Ears: No tinnitus or hearing problem. Nose: No nasal discharge or epistaxis. Throat: No sore throat or mouth ulcers. Eyes: No diplopia or visual changes. RESPIRATORY: No shortness of breath. No cough, expectoration or hemoptysis. CARDIOVASCULAR: No chest pain, orthopnea, or paroxysmal nocturnal dyspnea (PND). No edema. No palpitations. GASTROINTESTINAL: No nausea or vomiting. No diarrhea or constipation. No change in bowel movements. No heartburn or swallowing difficulties. No abdominal pain. No jaundice. No hematemesis, melena or rectal bleeding. GENITOURINARY: No hematuria or dysuria. MUSCULOSKELETAL: No pain in the muscles, joints or bones. NEUROLOGICAL: No tingling or numbness in the hands or feet. No headaches or convulsions. HEMATOLOGIC/LYMPHATIC: He is weak, tired and fatigued. SKIN: No skin rash or lumps. PSYCHIATRIC: No anxiety or depression. PHYSICAL EXAMINATION GENERAL: Looks stable. Well-developed, well-nourished, and in no acute distress. VITAL SIGNS: Blood pressure 108/73, pulse 66 per minute, respirations 16 per minute, temperature 97, pulse oximetry 100% on room air. HEENT: Head: Atraumatic. No sinus tenderness to palpation. Eyes: No icterus or conjunctivitis. Mouth and throat: No oral thrush or mucositis. NECK: Supple. No cervical or supraclavicular lymphadenopathy. LUNGS: Clear to auscultation and percussion bilaterally. HEART: Regular rate and rhythm. No gallops, murmurs, clicks or rubs. ABDOMEN: Ileostomy is noted and healing is doing well. EXTREMITIES: No cyanosis, clubbing or edema. LYMPHATICS: No peripheral lymphadenopathy. NEUROLOGICAL: Conscious, alert and oriented times three. No focal motor or sensory deficits. PSYCHIATRIC: Mood and affect appear normal. SKIN: No skin rash, bruise or purpuric eruption. No tinnitus or hearing problem. Nose: No nasal discharge or epistaxis. Throat: No sore throat or mouth ulcers. Eyes: No diplopia or visual changes. RESPIRATORY: No shortness of breath. No cough, expectoration or hemoptysis. CARDIOVASCULAR: No chest pain, orthopnea, or paroxysmal nocturnal dyspnea (PND). No edema. No palpitations. GASTROINTESTINAL: No nausea or vomiting. No diarrhea or constipation. No change in bowel movements. No heartburn or swallowing difficulties. No abdominal pain. No jaundice. No hematemesis, melena or rectal bleeding. GENITOURINARY: No hematuria or dysuria. MUSCULOSKELETAL: No pain in the muscles, joints or bones. NEUROLOGICAL: No tingling or numbness in the hands or feet. No headaches or convulsions. HEMATOLOGIC/LYMPHATIC: No bleeding or easy bruising. No weakness or fatigued. No enlarged lymph nodes. SKIN: No skin rash or lumps. PSYCHIATRIC: No anxiety or depression. ASSESSMENT 1. 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 Twenty-two lymph nodes were negative for metastasis. MSI high was negative. On asking Dr. Koroma, the surgeon, it seems that the tumor was invading the anterior abdominal wall and stomach so it is a T4 lesion. Given that the patient has also colonic obstruction, so he is a high risk stage 2, and for this reason I offered her adjuvant chemotherapy and the patient is agreeable with that. I am planning to treat him with 8 to 12 cycles of FOLFOX chemotherapy with 5FU, leucovorin and oxaliplatin. Side effects from chemotherapy including bone marrow suppression with anemia, thrombocytopenia and neutropenia, diarrhea and neuropathy, especially at the beginning due to cold exposure, are explained to the patient. Before administration of chemotherapy, I am planning to refer the patient back to Dr. Koroma for placement of single-lumen central port. I am planning to start his chemotherapy with FOLFOX on January 12, 2018, which will be over four weeks since his surgery. I am planning to see him two weeks after that with CBC, chem panel and CEA. CBC and chem panel to be checked weekly. I will consider Neulasta shot if the patient would developed neutropenia with his treatment. 2. Iron deficiency anemia. Patient received two infusions of iron sucrose 200 mg. I am planning to start oral ferrous sulfate 325 mg three times daily with meals and I will check his iron studies in two to three months. I gave him the iron orally in order to reinitiate his stools. It seems to me his anemia is improving. His last CBC showed hemoglobin of 11.2 and hematocrit of 37.5 by MCV remained low at 69.4. PLAN 1. Referral to Dr. Koroma for placement of single-lumen central port. 2. Ferrous sulfate 325 mg three times daily with meals. 3. Patient to return on January 12, 2018 to start adjuvant chemotherapy with FOLFOX with oxaliplatin, 5FU and leucovorin. 4. CBC, chem panel to be checked weekly after starting chemotherapy. 5. Patient to return in two weeks after starting chemotherapy with CBC, chem panel, CEA. 6. Check CBC, chem panel, CEA prior to starting chemotherapy on January 12, 2018. 7. Consider Neulasta shot if the patient would develop neutropenia with his treatment. 8. Patient to contact us for any new concerns or complaints. MTDD
[2018-01-19] MEDS: LIDOCAINE/SOD BICARB 8.4% SYR ID PRN (10:25)
[2018-01-19 10:28] VITALS: BP 119/84
[2018-01-19] MEDS: DEXAMETHASONE SOD PHOS 10MG/ML IVP PRN (11:00)
[2018-01-19] MEDS: PALONOSETRON 0.25 MG/5 ML VIAL IVP PRN (11:01)
[2018-01-19] MEDS: DEXTROSE 5%(*) 100 ML BAG 100 ML IVPB PRN (14:10)
[2018-01-19] MEDS: NS(*) 0.9% 500 ML BAG 500 ML IV PRN (14:11)
[2018-01-19 14:30] VITALS: BP 124/75
--- NOTE | 2018-01-19 15:19 | Medical Nutrition Therapy ---
Nutrition Anthropometrics Height (Inches): 66.00 Height (Calculated Centimeters: 167.6400 Weight (Pounds): 123 (patient states his usual wt was stable 130 - 135 lbs) BMI: 19.9 Hx Weight Loss: Yes Hx Weight Gain: Yes (pt states his wt has been as low as 95 lbs) Nutritional Education Nutrition Education Topic: Other (Eating Hints during Cancer Treatment ) Learning Readiness: Interested Teaching Methods: Discussion, Handout Response to Teaching: Verbalize understanding Teaching Recipient: Patient, Family (sister present ) Nutrition Counseling: Reviewed handout on Eating during Cancer Treatment, discussed potential nutrition impact symptoms and encouraged patient to review information on how to manage symptoms he may experience. Patient did not have any questions regarding his ileostomy, stated he is not experiencing any nutrition impact symptoms currently Nutrition Monitoring & Eval Nutrition Goals: Eat 90-100% Meal, Drink > 2 liters/day Nutritional Goals Comment: Maintain or gain wt, continue drinking 2 Boosts per day and high protein milkshakes especially if PO intake decreases Nutrition Follow-Up: Good Intake, Taking Snack Supplement RD Patient Assessment Time: [address] Assessment Type: RD Education Patient Nutrition Acuity: 1-High Nutritional Comment: encourage patient to call or let RN know if he would like to discuss any nutrition issues with me. SHEY ARGUELLO RDN, JATIN Jan 19, 2018 13:01
[2018-01-21 13:02] VITALS: BP 99/68
[2018-01-21] MEDS: HEPARIN FLSH (PORT) 500 UN/5ML IVP PRN (16:25)
[2018-01-26 09:45] LABS: PLATELET COUNT, AUTOMATED 397 K/uL (150-450)
[2018-01-26 09:46] VITALS: BP 121/81
--- NOTE | 2018-01-26 13:12 | ONCOLOGY FOLLOW UP NOTE ---
EVENT DATE: January 26, 2018 CHIEF COMPLAINT Followup after cycle #1 of FOLFOX. HISTORY OF PRESENT ILLNESS Patient is a 42-year-old male who is seen today after receiving his first cycle of FOLFOX. Overall, he tolerated this well. He did have the expected cold intolerance which lasted for four to five days but has now resolved. He had some mild nausea but no vomiting. This also resolved after three days. He is managing his ileostomy without issue. He does not have significant fatigue. He would like to go back to work soon but has not been released. He denies any other new complaints. ONCOLOGY HISTORY Patient is a 42-year-old male who presented with right renal colic and bloody stools. CT of the abdomen and pelvis on December 09, 2017 showed a 4 mm obstructing calculus in the upper right ureter with right hydronephrosis and nonobstructing calculi in both kidneys. A transverse colon mass was noted with extracolonic tissue attenuation. He was also noted to have iron deficiency anemia. He underwent a right colectomy with en tacho resection of the greater curvature of the stomach and anterior abdominal wall with cholecystectomy and end ileostomy on December 10, 2017. Pathology was positive for an invasive mucinous adenocarcinoma of the colon, low-grade, with invasion through the serosa and into the pericolonic fat with negative margins. Twenty-two lymph nodes were negative for metastases. MSI high was negative. Final pathology showed stage II (pT4 pN0 cM0). He began FOLFOX on January 19, 2018. PAST MEDICAL HISTORY 1. Renal stones. 2. Inflammatory bowel disease for nearly 20 years but patient was not diagnosed but he has had colonic symptoms for about 20 years now with rare bloody stools. PAST SURGICAL HISTORY Extended right colectomy on December 10, 2017. FAMILY HISTORY Father had blood disorder that seems to be polycythemia as he was donating blood frequently. Maternal cousin with colon cancer. Paternal grandfather ; he had prostate cancer. SOCIAL HISTORY Patient is single with no children. 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 He quit tobacco 15 year ago after one pack every four days for six years. He quit alcohol five years ago. No abuse of illicit drugs. CURRENT MEDICATIONS Ferrous sulfate 325 mg three times daily with meals. ALLERGIES No known drug allergies. REVIEW OF SYSTEMS A 12-point review of systems is performed and is negative except as stated above. PHYSICAL EXAMINATION VITAL SIGNS: Weight 55.5 kg. Blood pressure 121/81, P 65, R 16, temperature 97.5, O2 sat 97%. GENERAL: Patient is a well-developed, well-nourished, thin male in no acute distress. HEAD: Normocephalic, atraumatic. EYES: Sclerae anicteric. MOUTH: Moist mucous membranes. No lesions noted. NECK: Supple. No adenopathy. CARDIOVASCULAR: Heart rate regular, 80 per minute without murmur, S3 or S4. LUNGS: Clear bilaterally. ABDOMEN: Soft, nontender. Ileostomy in place. EXTREMITIES: No edema. NEUROLOGICAL: Nonfocal. LAB: CBC today reveals WBC 6.7, hemoglobin 14.9, hematocrit 48.0, platelets 397,000. IMPRESSION AND PLAN The patient is a 42-year-old male diagnosed with stage II (pT4 pN0 cM0) adenocarcinoma of the colon, mucinous type. Underwent extended right colectomy with en tacho resection of the greater curvature of the stomach and anterior wall with cholecystectomy and end ileostomy on December 10, 2017. Twenty-two lymph nodes were negative for metastases. MSI high was negative. He began FOLFOX on January 19, 2018. 1. Colon cancer. Patient is seen one week after receiving his first cycle of FOLFOX. He tolerated this well except for some mild nausea and the expected cold intolerance, both of which have resolved. 2. Iron deficiency anemia. Hemoglobin is 14.9 today. He will continue ferrous sulfate 325 mg daily. 3. Cold intolerance. Discussed use of gloves and avoidance of cold liquids and touching cold items for the first few days after treatment. 4. GI. Patient has an appointment to see a regional education coordinator on February 09, 2018 in [facility]. 5. Follow up on February 02, 2018 for cycle #2 of treatment. MTDD
[2018-02-02 08:53] VITALS: BP 128/84
[2018-02-02] MEDS: LIDOCAINE/SOD BICARB 8.4% SYR ID PRN (08:56)
[2018-02-02] MEDS: NS(*) 0.9% 500 ML BAG 500 ML IV PRN (08:57)
[2018-02-02] MEDS: DEXAMETHASONE SOD PHOS 10MG/ML IVP PRN (09:47)
[2018-02-02] MEDS: PALONOSETRON 0.25 MG/5 ML VIAL IVP PRN (09:48)
[2018-02-02] MEDS: DEXTROSE 5%(*) 100 ML BAG 100 ML IVPB PRN (10:18)
[2018-02-02 13:17] VITALS: BP 128/84
[2018-02-04 11:59] VITALS: BP 133/83
[2018-02-04] MEDS: HEPARIN FLSH (PORT) 500 UN/5ML IVP PRN (12:34)
[2018-02-11 10:35] VITALS: BP 131/82
[2018-02-11 10:45] LABS: PLATELET COUNT, AUTOMATED 335 K/uL (150-450)
[2018-02-16 08:54] VITALS: BP 118/80
[2018-02-16] MEDS: LIDOCAINE/SOD BICARB 8.4% SYR ID PRN (08:59)
[2018-02-16] MEDS: NS(*) 0.9% 500 ML BAG 500 ML IV PRN (08:59)
[2018-02-16] MEDS: DEXAMETHASONE SOD PHOS 10MG/ML IVP PRN (09:54)
[2018-02-16] MEDS: PALONOSETRON 0.25 MG/5 ML VIAL IVP PRN (09:54)
[2018-02-16] MEDS: DEXTROSE 5%(*) 100 ML BAG 100 ML IVPB PRN (10:31)
[2018-02-16] MEDS: D5W IV PRN (10:32)
[2018-02-16] MEDS: LEUCOVORIN CAL IV PRN (10:32)
[2018-02-16] MEDS: OXALIPLATIN IVPB PRN (10:34)
[2018-02-16] MEDS: [UNRECOGNIZED DRUG - OTHER] IVPB PRN (10:34)
[2018-02-16] MEDS: FLUOROURACIL 50 MG/ML SDV IVP PRN (12:54)
[2018-02-16 13:00] VITALS: BP 126/81
[2018-02-16] MEDS: NS 0.9% IV PRN (13:00)
[2018-02-16] MEDS: FLUOROURACIL IV PRN (13:00)
--- NOTE | 2018-02-16 14:30 | ONCOLOGY FOLLOW UP NOTE ---
EVENT DATE: February 16, 2018 CHIEF COMPLAINT Followup for colon cancer. HISTORY OF PRESENT ILLNESS Patient is a 42-year-old male who is seen today for consideration of cycle #3 of FOLFOX. He is tolerating his treatment well. He does have the expected cold intolerance but this resolves fairly quickly. He has noted some intermittent numbness and tingling in his fingertips but, again, this is very intermittent. Stools are loose per his ostomy. He visited with gastroenterology in [place], who plans a colonoscopy and possible treatment for Crohn's disease after finishing chemotherapy. The critical systems technician recommended checking B12 and folate today. His mother is making him bone broth and he believes this helps with his nausea. He has some irritation in his right eye but feels it is getting better. He would like to consider going back to work. ONCOLOGY HISTORY Patient is a 42-year-old male who presented with right renal colic and bloody stools. CT of the abdomen and pelvis on December 09, 2017 showed a 4 mm obstructing calculus in the upper right ureter with right hydronephrosis and nonobstructing calculi in both kidneys. A transverse colon mass was noted with extracolonic tissue attenuation. He was also noted to have iron deficiency anemia. He underwent a right colectomy with en tacho resection of the greater curvature of the stomach and anterior abdominal wall with cholecystectomy and end ileostomy on December 10, 2017. Pathology was positive for an invasive mucinous adenocarcinoma of the colon, low-grade, with invasion through the serosa and into the pericolonic fat with negative margins. Twenty-two lymph nodes were negative for metastases. MSI high was negative. Final pathology showed stage II (pT4 pN0 cM0). He began FOLFOX on January 19, 2018. PAST MEDICAL HISTORY 1. Renal stones. 2. Inflammatory bowel disease for nearly 20 years but patient was not diagnosed but he has had colonic symptoms for about 20 years now with rare bloody stools. PAST SURGICAL HISTORY Extended right colectomy on December 10, 2017. FAMILY HISTORY Father had blood disorder that seems to be polycythemia as he was donating blood frequently. Maternal cousin with colon cancer. Paternal grandfather ; he had prostate cancer. SOCIAL HISTORY Patient is single with no children. 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 He quit tobacco 15 year ago after one pack every four days for six years. He quit alcohol five years ago. No abuse of illicit drugs. CURRENT MEDICATIONS Ferrous sulfate 325 mg three times daily with meals. ALLERGIES No known drug allergies. REVIEW OF SYSTEMS A 12-point review of systems is performed and is negative except as stated above. PHYSICAL EXAMINATION VITAL SIGNS: Weight 59.2 kg. BP 118/80, P 69, R 16, temperature 97.8, O2 sat 96%. GENERAL: Patient is a well-developed, well-nourished male in no acute distress. HEAD: Normocephalic, atraumatic. EYES: Sclerae anicteric. Right eye is injected but no drainage noted. MOUTH: Moist mucous membranes. No lesions noted. NECK: Supple. No adenopathy. CARDIOVASCULAR: Heart rate regular, 69 per minute without murmur, S3 or S4. LUNGS: Clear bilaterally. ABDOMEN: Soft, nontender with active bowel sounds. Ileostomy in place. EXTREMITIES: No edema. NEUROLOGICAL: Nonfocal. LAB: CBC today reveals a WBC 7.1, hemoglobin 14.1, hematocrit 44.9, platelets 228,000. CMP and CEA are pending. IMPRESSION AND PLAN The patient is a 42-year-old male diagnosed with stage II (pT4 pN0 cM0) adenocarcinoma of the colon, mucinous type. Underwent extended right colectomy with en tacho resection of the greater curvature of the stomach and anterior wall with cholecystectomy and end ileostomy on December 10, 2017. Twenty-two lymph nodes were negative for metastases. MSI high was negative. He began FOLFOX on January 19, 2018. 1. Colon cancer. Cycle #3 of adjuvant FOLFOX. He is tolerating his treatment well. He does have the expected cold intolerance. Previously noted nausea has, for the most part, resolved. 2. Iron deficiency anemia. Hemoglobin is stable today at 14.1 He continues ferrous sulfate. 3. GI. He met with the critical systems technician in [facility], who recommended checking B12 and folate. We will add those to today's labs. The critical systems technician is planning colonoscopy and possible treatment for his Crohn's disease after completion of chemotherapy. 4. Ophthalmology. Questionable corneal abrasion in his right eye. He felt that there was "something in it" and was rubbing his eyes. The sclerae is injected today but no drainage. He feels this is improving. I asked him to let us know if he feels it is worsening. 5. Work. Patient would like to get back to work. He is looking forward to being "back to normal". He considered working one week on and one week off. I recommended he instead he consider four hours a day on a p.r.n. basis. He will talk with Benjamin and see if they can work something out. 6. Follow up weekly for labs. 7. Follow up in two weeks for cycle #4 of treatment. MTDD
[2018-02-18 11:45] VITALS: BP 120/69
[2018-02-18] MEDS: HEPARIN FLSH (PORT) 500 UN/5ML IVP PRN (11:51)
[2018-02-25 10:38] VITALS: BP 131/92
[2018-02-25 10:50] LABS: PLATELET COUNT, AUTOMATED 273 K/uL (150-450)
[2018-03-02 13:28] VITALS: BP 120/85
[2018-03-02 14:01] LABS: PLATELET COUNT, AUTOMATED 179 K/uL (150-450)
[2018-03-02] MEDS: PALONOSETRON 0.25 MG/5 ML VIAL IVP PRN (14:35)
[2018-03-02] MEDS: DEXAMETHASONE SOD PHOS 10MG/ML IVP PRN (14:35)
[2018-03-02] MEDS: DEXTROSE 5%(*) 100 ML BAG 100 ML IVPB PRN (14:40)
[2018-03-02] MEDS: NS(*) 0.9% 500 ML BAG 500 ML IV PRN (14:40)
[2018-03-02] MEDS: LIDOCAINE/SOD BICARB 8.4% SYR ID PRN (14:41)
[2018-03-02] MEDS: D5W IV PRN (15:11)
[2018-03-02] MEDS: LEUCOVORIN CAL IV PRN (15:11)
[2018-03-02] MEDS: OXALIPLATIN IVPB PRN (15:13)
[2018-03-02] MEDS: [UNRECOGNIZED DRUG - OTHER] IVPB PRN (15:13)
[2018-03-02] MEDS: FLUOROURACIL 50 MG/ML SDV IVP PRN (17:14)
[2018-03-02] MEDS: FLUOROURACIL IV PRN (17:15)
[2018-03-02] MEDS: NS 0.9% IV PRN (17:15)
[2018-03-02 17:36] VITALS: BP 134/81
[2018-03-04] MEDS: HEPARIN FLSH (PORT) 500 UN/5ML IVP PRN (13:40)
[2018-03-04 14:25] VITALS: BP 114/74
[2018-03-04 15:32] VITALS: BP 126/80
--- NOTE | 2018-03-04 17:12 | [facility] ONCOLOGY NOTE ---
EVENT DATE: March 04, 2018 DIAGNOSIS Stage II (pT4 pN0 cN0) transverse colon adenocarcinoma, mucinous type. CHIEF COMPLAINT Patient is here today for followup of his colon cancer, on adjuvant chemotherapy with FOLFOX. ONCOLOGY HISTORY Patient is a 42-year-old male who presented with right renal colic and bloody stools for about two days prior to his presentation so the patient came to the emergency department at [facility] in [place] and CT abdomen and pelvis done on December 09, 2017 showed 4 mm obstructing calculus in the upper right ureter near the UPJ with mild right hydronephrosis with nonobstructing calculi in both kidneys. Transverse colon mass is noted with extracolonic soft tissue attenuation. It appears to invade the anterior abdominal wall and gastric antrum with some colonic obstruction with possible inflammatory ileitis with bilateral sacroiliac joint ankylosis, suggestive of Crohn's disease. There was also an exophytic lesion 2.7 cm from the lower pole of the left kidney. Patient also was found to have iron deficiency anemia. On December 10, 2017, patient had extended right colectomy with en tacho resection of the greater curvature of the stomach and anterior abdominal wall with cholecystectomy and end ileostomy and the pathology came back positive for invasive mucinous adenocarcinoma of the colon, low grade, with invasion through the serosa and into the pericolonic fat with negative margins. Twenty-two lymph nodes were negative for metastasis. MSI high was negative. When asking Dr. Koroma, the surgeon, it seems that the mass was actually invading the anterior abdominal wall and the stomach so it is a T4 lesion. The stage is stage 2 (pT4 pN0 cM0) and 22 lymph nodes were negative for metastasis. Patient started adjuvant chemotherapy with FOLFOX on January 19 2018. HISTORY OF PRESENT ILLNESS Patient is here today for followup of his colon cancer, on adjuvant chemotherapy with FOLFOX regimen. He is doing fine currently. He is currently receiving the fourth cycle of chemotherapy. He is complaining of occasional nausea and diarrhea. He has pain in his back. He has cold exposure and neuropathy, especially in the fingers more than the toes, after he started FOLFOX due to oxaliplatin therapy but other than that he is tolerating treatment very well so far. PAST MEDICAL HISTORY 1. Renal stones. 2. Inflammatory bowel disease for nearly 20 years but patient was not diagnosed but he has had colonic symptoms for about 20 years now with rare bloody stools. PAST SURGICAL HISTORY Extended right colectomy on December 10, 2017. FAMILY HISTORY Father had blood disorder that seems to be polycythemia as he was donating blood frequently. Maternal cousin with colon cancer. Paternal grandfather ; he had prostate cancer. SOCIAL HISTORY Patient is single with no children. 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 He quit tobacco 15 year ago after one pack every four days for six years. He quit alcohol five years ago. No abuse of illicit drugs. CURRENT MEDICATIONS Ferrous sulfate 315 mg three times daily with meals. ALLERGIES No known drug allergies. REVIEW OF SYSTEMS CONSTITUTIONAL: Patient had lost of weight. He lost weight before surgery but his current weight is about 30 pounds loss. He has started to gain some weight lately. HEENT: Ears: No tinnitus or hearing problem. Nose: No nasal discharge or epistaxis. Throat: No sore throat or mouth ulcers. Eyes: No diplopia or visual changes. RESPIRATORY: No shortness of breath. No cough, expectoration or hemoptysis. CARDIOVASCULAR: No chest pain, orthopnea, or paroxysmal nocturnal dyspnea (PND). No edema. No palpitations. GASTROINTESTINAL: He has occasional nausea and diarrhea. GENITOURINARY: No hematuria or dysuria. MUSCULOSKELETAL: He has back pain. NEUROLOGICAL: He has neuropathy in the fingers more than the toes on exposure to cold from his chemotherapy. HEMATOLOGIC/LYMPHATIC: He is weak, tired and fatigued. SKIN: No skin rash or lumps. PSYCHIATRIC: No anxiety or depression. PHYSICAL EXAMINATION GENERAL: Looks stable. Well-developed, well-nourished, and in no acute distress. VITAL SIGNS: Blood pressure 114/74, pulse 56 per minute, respirations 16 per minute, temperature 97.5, pulse oximetry 96% on room air. HEENT: Head: Atraumatic. No sinus tenderness to palpation. Eyes: No icterus or conjunctivitis. Mouth and throat: No oral thrush or mucositis. NECK: Supple. No cervical or supraclavicular lymphadenopathy. LUNGS: Clear to auscultation and percussion bilaterally. HEART: Regular rate and rhythm. No gallops, murmurs, clicks or rubs. ABDOMEN: Ileostomy is noted and healing is doing well. EXTREMITIES: No cyanosis, clubbing or edema. LYMPHATICS: No peripheral lymphadenopathy. NEUROLOGICAL: Conscious, alert and oriented times three. No focal motor or sensory deficits. PSYCHIATRIC: Mood and affect appear normal. SKIN: No skin rash, bruise or purpuric eruption. No tinnitus or hearing problem. Nose: No nasal discharge or epistaxis. Throat: No sore throat or mouth ulcers. Eyes: No diplopia or visual changes. RESPIRATORY: No shortness of breath. No cough, expectoration or hemoptysis. CARDIOVASCULAR: No chest pain, orthopnea, or paroxysmal nocturnal dyspnea (PND). No edema. No palpitations. GASTROINTESTINAL: No nausea or vomiting. No diarrhea or constipation. No change in bowel movements. No heartburn or swallowing difficulties. No abdominal pain. No jaundice. No hematemesis, melena or rectal bleeding. GENITOURINARY: No hematuria or dysuria. MUSCULOSKELETAL: No pain in the muscles, joints or bones. NEUROLOGICAL: No tingling or numbness in the hands or feet. No headaches or convulsions. HEMATOLOGIC/LYMPHATIC: No bleeding or easy bruising. No weakness or fatigued. No enlarged lymph nodes. SKIN: No skin rash or lumps. PSYCHIATRIC: No anxiety or depression. DIAGNOSTIC DATA CBC showed white count 5.8, hemoglobin 15.9, hematocrit 44.3, platelets 179,000, MCV 70.8. Chem panel totally normal except AST 54, which is down from 77, ALT 86, which is down from 107. Alkaline phosphatase is 171, which is up from 138. CEA is normal at 2.2. ASSESSMENT 1. 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 Twenty-two lymph nodes were negative for metastasis. MSI high was negative. It seems that his tumor was invading the anterior abdominal wall and stomach so it is a stage T4. Patient also has colonic obstruction and that is why he is a high risk stage II and for this reason patient started adjuvant chemotherapy with FOLFOX on January 19, 2018. He received three cycles and he is currently receiving the fourth cycle already. I am planning to continue followup. I will see him again in two weeks with CBC, chem panel and CEA. I will check his CBC and chem panel every week. I will consider Neulasta if the patient would developed neutropenia with the treatment. 2. Iron deficiency anemia. Patient received two infusions of iron sucrose 200 mg. He started ferrous sulfate 325 mg three times daily. His current hemoglobin actually is 13.9, which is up from 11.2. MCV was 69.4 and currently 70.8. We will continue to monitor and we will continue iron supplementation. PLAN 1. FOLFOX as per schedule. This is cycle #4. 2. CBC and chem panel to be checked weekly. 3. Patient to return in two weeks for CBC, chem panel and CEA. 4. Consider Neulasta if the patient would develop neutropenia in the future. 5. Patient to contact us for any new concerns or complaints. MTDD
[2018-03-11 10:44] VITALS: BP 117/86
[2018-03-11 10:49] LABS: PLATELET COUNT, AUTOMATED 247 K/uL (150-450)
[2018-03-16 13:35] VITALS: BP 120/80
[2018-03-16] MEDS: NS(*) 0.9% 500 ML BAG 500 ML IV PRN (13:40)
[2018-03-16] MEDS: LIDOCAINE/SOD BICARB 8.4% SYR ID PRN (13:40)
[2018-03-16 13:49] LABS: PLATELET COUNT, AUTOMATED 166 K/uL (150-450)
[2018-03-16] MEDS: PALONOSETRON 0.25 MG/5 ML VIAL IVP PRN (14:22)
[2018-03-16] MEDS: DEXAMETHASONE SOD PHOS 10MG/ML IVP PRN (14:22)
[2018-03-16] MEDS: DEXTROSE 5%(*) 100 ML BAG 100 ML IVPB PRN (14:51)
[2018-03-16 16:58] VITALS: BP 129/78
--- NOTE | 2018-03-17 01:37 | ONCOLOGY FOLLOW UP NOTE ---
EVENT DATE: March 16, 2018 CHIEF COMPLAINT Followup for stage II colon cancer. HISTORY OF PRESENT ILLNESS Patient is a 42-year-old male who was seen today for consideration of cycle #5 of adjuvant FOLFOX. He continues to tolerate this fairly well. He does note that the cold intolerance and intermittent neuropathy last longer. Stools remain loose per his ileostomy. He otherwise denies any new complaints. He is frustrated, as he will continue on disability per his work for the time being. ONCOLOGY HISTORY Patient is a 42-year-old male who presented with right renal colic and bloody stools. CT of the abdomen and pelvis on December 09, 2017, showed a 4 mm obstructing calculus in the upper right ureter with right hydronephrosis and nonobstructing calculi in both kidneys. A transverse colon mass was noted with extracolonic tissue attenuation. He was also noted to have iron deficiency anemia. He underwent a right colectomy with en tacho resection of the greater curvature of the stomach and anterior abdominal wall with cholecystectomy and end ileostomy on December 10, 2017. Pathology was positive for an invasive mucinous adenocarcinoma of the colon, low-grade, with invasion through the serosa and into the pericolonic fat with negative margins. Twenty-two lymph nodes were negative for metastases. MSI high was negative. Final pathology showed stage II (pT4 pN0 cM0). He began FOLFOX on January 19, 2018. PAST MEDICAL HISTORY 1. Renal stones. 2. Inflammatory bowel disease for nearly 20 years, but patient was not diagnosed, but he has had colonic symptoms for about 20 years now with rare bloody stools. PAST SURGICAL HISTORY Extended right colectomy on December 10, 2017. FAMILY HISTORY Father had blood disorder that seems to be polycythemia as he was donating blood frequently. Maternal cousin with colon cancer. Paternal grandfather ; he had prostate cancer. SOCIAL HISTORY Patient is single with no children. 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 He quit tobacco 15 year ago after one pack every four days for six years. He quit alcohol five years ago. No abuse of illicit drugs. CURRENT MEDICATIONS Ferrous sulfate 325 mg three times daily with meals. ALLERGIES No known drug allergies. REVIEW OF SYSTEMS A 12-point review of systems is performed and is negative except as stated above. PHYSICAL EXAMINATION VITAL SIGNS: Weight 60.7 kg. BP 120/80, P 68, R 16, temperature 98.2, O2 sat 98%. GENERAL: Patient is a well-developed, well-nourished, thin male in no acute distress. HEAD: Normocephalic, atraumatic. EYES: Sclerae anicteric. MOUTH: Moist mucous membranes. No lesions. NECK: Supple. No palpable adenopathy. LUNGS: Clear bilaterally. CARDIOVASCULAR: Heart rate regular, 68 per minute, without murmur, S3 or S4. ABDOMEN: Soft, nontender, with active bowel sounds. Ileostomy in place. EXTREMITIES: No edema. NEUROLOGICAL: Nonfocal. LAB CMP today shows AST 84, ALT 97, alkaline phosphatase 176. CEA is pending. IMPRESSION AND PLAN The patient is a 42-year-old male diagnosed with stage II (pT4 pN0 cM0) adenocarcinoma of the colon, mucinous type. Underwent extended right colectomy with en tacho resection of the greater curvature of the stomach and anterior wall with cholecystectomy and end ileostomy on December 10, 2017. Twenty-two lymph nodes were negative for metastases. MSI high was negative. He began FOLFOX on January 19, 2018. 1. Colon cancer. Cycle #5 of adjuvant FOLFOX today. He continues to tolerate this well. 2. Iron-deficiency anemia. Hemoglobin remains stable at 14.5 MCV has slowly increased. He continues on ferrous sulfate b.i.d. 3. Neuropathy. Describes both cold intolerance as well as intermittent neuropathy, greater in his hands than his feet. He believes these symptoms are lasting longer, but neither is persistent. 4. Increased liver function tests. Liver function tests remains slightly high. No dosing changes required at this time. We will continue to monitor trend and adjust chemo doses as needed. 5. Follow up weekly for labs. 6. Follow up in two weeks for cycle #6, earlier if there is a problem. MTDD
[2018-03-18] MEDS: HEPARIN FLSH (PORT) 500 UN/5ML IVP PRN (15:07)
[2018-03-18 15:08] VITALS: BP 128/86
[2018-03-25 10:34] VITALS: BP 125/80
[2018-03-25 11:12] LABS: PLATELET COUNT, AUTOMATED 195 K/uL (150-450)
[~2018-03-30] VITALS: Ht 167.6 cm; Wt 60.6 kg
[~2018-03-30 08:25] MED LIST changes: +ALTEPLASE RECOMB 2 MG VIAL IVP PRN; +D5W IV ONE; -DEXAMETHASONE SOD 4 MG/ML VIAL ONE; -FAMOTIDINE 20 MG TAB PO ONE; +FLUOROURACIL 50 MG/ML SDV IVP ONE; +FLUOROURACIL IV ONE; -HEPARIN SOD LCK FLSH 100 UN/ML ONE; +LEUCOVORIN CAL IV ONE; -LIDOCAINE MPF 1% 5 ML VIAL ONE; -LIDOCAINE/SOD BICARB 8.4% SYR ID ONE; -MIDAZOLAM 2 MG/2 ML VIAL IVP PRN; -NORMOSOL R SOLN(*) 1000 ML BAG 1,000 ML IV PRN; +NS 0.9% IV ONE; -NS(*) 0.9% 10 ML VIAL 20 ML ONE; +NS(*) 0.9% 100 ML BAG 100 ML IVPB PRN; +ONDA-2 PO; -ONDANSETRON 4 MG/2 ML VIAL ONE; +OXALIPLATIN IVPB ONE; -PROPOFOL EMUL(*) 10MG/ML 20 ML 20 ML ONE; -ROPIVACAINE 0.5% 20 ML VIAL ONE; +WATER FOR INJ,STERILE 20 ML IVP PRN; +[UNRECOGNIZED DRUG - OTHER] IVPB ONE; -ceFAZolin(*) 2GM/D5W 50ML 50 ML IVPB ONE; -fentaNYL CITR 100 MCG/2 ML AMP ONE
[2018-03-30 08:28] VITALS: BP 124/81
[2018-03-30] MEDS: LIDOCAINE/SOD BICARB 8.4% SYR ID PRN (08:48)
[2018-03-30] MEDS: NS(*) 0.9% 500 ML BAG 500 ML IV PRN (08:49)
[2018-03-30] MEDS: PALONOSETRON 0.25 MG/5 ML VIAL IVP PRN (09:22)
[2018-03-30] MEDS: DEXTROSE 5%(*) 100 ML BAG 100 ML IVPB PRN (09:23)
[2018-03-30] MEDS: DEXAMETHASONE SOD PHOS 10MG/ML IVP PRN (09:23)
[2018-03-30] MEDS ORDERED: OXALIPLATIN IVPB ONE (09:25)
[2018-03-30] MEDS ORDERED: LEUCOVORIN CAL IV ONE (09:25)
[2018-03-30] MEDS ORDERED: FLUOROURACIL 50 MG/ML SDV IVP ONE (09:25)
[2018-03-30] MEDS ORDERED: [UNRECOGNIZED DRUG - OTHER] IVPB ONE (09:25)
[2018-03-30] MEDS ORDERED: D5W IV ONE (09:25)
[2018-03-30] MEDS ORDERED: FLUOROURACIL IV ONE (09:30)
[2018-03-30] MEDS ORDERED: NS 0.9% IV ONE (09:30)
--- NOTE | 2018-03-31 07:42 | NUR ---
Pt completed f/u HADS form: A:0, D:2. No concerns.
== END 2018-03-31 ==
LOC: ONC 08:25
PROVIDERS: ATTEND Internal Medicine Hematology
DX: C18.9 Malignant neoplasm of colon, unspecified (principal); D50.9 Iron deficiency anemia, unspecified; Z87.891 Personal history of nicotine dependence; R53.1 Weakness; R53.83 Other fatigue
CPT/HCPCS: 36415; 82378; 82607; 82746; 85025; 85027; 96367; 96368; 96375; 96413; 96415; 96416; 99202; 99212; J0640; J1100; J1642; J2469; J7040; J7060; J9190; J9263; 82040; 82247; 82310; 82374; 82435; 82565; 82947; 84075; 84132; 84155; 84295; 84450; 84460; 84520

== ENCOUNTER 2018-04-13 10:30 | Outpatient (RCR) | payer BC ==
[2017-12-10 09:28] VITALS: BMI 19.4
--- NOTE | 2018-01-19 15:10 | PT INITIAL EVALUATION ---
MEDICAL DIAGNOSIS: Colon Cancer TREATMENT DIAGNOSIS: Colon Cancer DATE OF ONSET: 12/09/17 SUBJECTIVE: Sials is a 42 year old male presenting to oncology rehabilitation following recent diagnosis of colon cancer with abdominal invasion. Pt is to start chemotherapy consisting of FOLFOX today with recurrence every 2 weeks. Pt is s/p colonic resection with ostomy bag in place following. Pt currently has no complaints of musculoskeletal nature but has been placed on lifting restrictions of 10# following surgery on December 09, 2017. 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 Pt reports no lifting at his current position and that his employees are accommodating to his condition. Pt currently is moderately active with daily light aerobic activity walking outdoors. REHAB PROBLEM LIST: Increased Pain Decreased Strength Decreased Function Decreased ADL's Decreased Mobility PREVIOUS MEDICAL HISTORY: See EMR OBJECTIVE: Pt presents with an ostomy bag with good seal and skin appearance surrounding. Posture: Posture significant for thoracic kyphosis with rounded shoulders when seated "slumped" in chair. Strength: Not tested at this time secondary to recent surgery at risk of increased abdominal pressure Palpation: Pt has an incision down the mid abdomen approx. 6-8 inches in length. Incision has occasional scabbing remaining surrounding suture points on the lower portion with scabbing on the superior portion of the incision as well with inadequate closure of incision at the most superior portion. Mobility: ECOG Performance Status: grade 1 Other Objective Findings: Functional Assessment of Cancer Treatment-General(FACT-G): PWB: , SWB: , EWB: , FWB: , Total: 94/108 ASSESSMENT: Silas presents with signs and symptoms consistent with status post abdominal surgery for colon cancer. Physical therapy is indicated for this patient to improve pt function with ADL's and occupational activities as well as decrease side-effects from ongoing oncological intervention. Short Term Goals In 2 Months pt will maintain ECOG performance status of grade 1 or better for maintenance of function with ongoing oncological status. In 2 months pt will maintain FACT-G score of >85/108 for maintenance of functional status with ADL's. In 4 months pt will improve lower abdominal strength to a grade 4 for functional ability to perform ADL's. Patient's Goals Maintain function with ADL's with ongoing oncological treatment, return to work PLAN: Patient to be seen for Manual Therapy/STM/MET Strengthening/condition Ice/Heat Range of Motion Spinal Stabilization Ultrasound Stretching Iontophoresis Neuromuscular Re-ed Closed Chain Program Electrical Stim Posture/Body mechanics Gait Trg/Balance Trg Biofeedback Home Exercise Program Mech./Manual Traction Therapeutic Activities Pelvic Floor 1x/2Weeks for 6 MO If you have any questions, comments, or concerns about this report or plan, please contact me at . Thank you, Kayleigh Guerra, PT, DPT, CLT MTDD
[~2018-04-13 10:30] MED LIST changes: -ALTEPLASE RECOMB 2 MG VIAL IVP PRN; -D5W IV ONE; -FLUOROURACIL 50 MG/ML SDV IVP ONE; -FLUOROURACIL IV ONE; -LEUCOVORIN CAL IV ONE; -NS 0.9% IV ONE; -NS(*) 0.9% 100 ML BAG 100 ML IVPB PRN; -OXALIPLATIN IVPB ONE; -WATER FOR INJ,STERILE 20 ML IVP PRN; -[UNRECOGNIZED DRUG - OTHER] IVPB ONE
== END 2018-04-19 ==
LOC: PT 10:30
PROVIDERS: ATTEND Internal Medicine Hematology
DX: C18.9 Malignant neoplasm of colon, unspecified (principal); Z93.3 Colostomy status
CPT/HCPCS: 97162

== ENCOUNTER 2018-05-31 10:44 | Outpatient (RCR) | payer BC ==
[2017-12-10 09:28] VITALS: Ht 167.6 cm; Wt 64.5 kg
[2018-04-01 11:15] VITALS: BP 111/72
[2018-04-01] MEDS: HEPARIN FLSH (PORT) 500 UN/5ML IVP PRN (11:19)
--- NOTE | 2018-04-01 12:25 | [facility] ONCOLOGY NOTE ---
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 CHIEF COMPLAINT Patient is here today for followup of his colon cancer, on adjuvant chemotherapy with FOLFOX. ONCOLOGY HISTORY Patient is a 42-year-old male who presented with right renal colic and bloody stools for about two days prior to his presentation so the patient came to the emergency department at [facility] in [place] and CT abdomen and pelvis done on December 09, 2017 showed 4 mm obstructing calculus in the upper right ureter near the UPJ with mild right hydronephrosis with nonobstructing calculi in both kidneys. Transverse colon mass is noted with extracolonic soft tissue attenuation. It appears to invade the anterior abdominal wall and gastric antrum with some colonic obstruction with possible inflammatory ileitis with bilateral sacroiliac joint ankylosis, suggestive of Crohn's disease. There was also an exophytic lesion 2.7 cm from the lower pole of the left kidney. Patient also was found to have iron deficiency anemia. On December 10, 2017, patient had extended right colectomy with en tacho resection of the greater curvature of the stomach and anterior abdominal wall with cholecystectomy and end ileostomy and the pathology came back positive for invasive mucinous adenocarcinoma of the colon, low grade, with invasion through the serosa and into the pericolonic fat with negative margins. Twenty-two lymph nodes were negative for metastasis. MSI high was negative. When asking Dr. Koroma, the surgeon, it seems that the mass was actually invading the anterior abdominal wall and the stomach so it is a T4 lesion. The stage is stage 2 (pT4 pN0 cM0) and 22 lymph nodes were negative for metastasis. Patient started adjuvant chemotherapy with FOLFOX on January 19 2018. HISTORY OF PRESENT ILLNESS Patient is here today for followup of his colon cancer, on adjuvant chemotherapy with FOLFOX regimen. He is doing fine currently. He has some nasal discharge. He has started to have some neuropathy in his hands and toes, especially on exposure to cold, but other than that he is actually doing very well. PAST MEDICAL HISTORY 1. Renal stones. 2. Inflammatory bowel disease for nearly 20 years but patient was not diagnosed but he has had colonic symptoms for about 20 years now with rare bloody stools. PAST SURGICAL HISTORY Extended right colectomy on December 10, 2017. FAMILY HISTORY Father had blood disorder that seems to be polycythemia as he was donating blood frequently. Maternal cousin with colon cancer. Paternal grandfather ; he had prostate cancer. SOCIAL HISTORY Patient is single with no children. 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 He quit tobacco 15 year ago after one pack every four days for six years. He quit alcohol five years ago. No abuse of illicit drugs. CURRENT MEDICATIONS Ferrous sulfate 315 mg three times daily with meals. ALLERGIES No known drug allergies. REVIEW OF SYSTEMS CONSTITUTIONAL: Patient had lost of weight. He lost weight before surgery but his current weight is about 30 pounds loss. He has started to gain some weight lately. HEENT: Ears: No tinnitus or hearing problem. Nose: He has nasal discharge. Throat: No sore throat or mouth ulcers. Eyes: No diplopia or visual changes. RESPIRATORY: No shortness of breath. No cough, expectoration or hemoptysis. CARDIOVASCULAR: No chest pain, orthopnea, or paroxysmal nocturnal dyspnea (PND). No edema. No palpitations. GASTROINTESTINAL: He has occasional nausea and diarrhea. GENITOURINARY: No hematuria or dysuria. MUSCULOSKELETAL: He has back pain. NEUROLOGICAL: He has tingling and numbness in his hands. HEMATOLOGIC/LYMPHATIC: He is weak, tired and fatigued. SKIN: No skin rash or lumps. PSYCHIATRIC: No anxiety or depression. PHYSICAL EXAMINATION GENERAL: Looks stable. Well-developed, well-nourished, and in no acute distress. VITAL SIGNS: Blood pressure 111/72, pulse 74 per minute, respirations 16 per minute, temperature 99.7, pulse oximetry 95% on room air. HEENT: Head: Atraumatic. No sinus tenderness to palpation. Eyes: No icterus or conjunctivitis. Mouth and throat: No oral thrush or mucositis. NECK: Supple. No cervical or supraclavicular lymphadenopathy. LUNGS: Clear to auscultation and percussion bilaterally. HEART: Regular rate and rhythm. No gallops, murmurs, clicks or rubs. ABDOMEN: Ileostomy is noted and healing is doing well. EXTREMITIES: No cyanosis, clubbing or edema. LYMPHATICS: No peripheral lymphadenopathy. NEUROLOGICAL: Conscious, alert and oriented times three. No focal motor or sensory deficits. PSYCHIATRIC: Mood and affect appear normal. SKIN: No skin rash, bruise or purpuric eruption. DIAGNOSTIC DATA CBC showed white count 5.9, hemoglobin 15.2, hematocrit 49.7, platelets 132,000. Chem panel totally normal except potassium 3.3, chloride 109, blood sugar 152, AST 92, ALT 108, alkaline phosphatase 188. CEA is pending but his last CEA was normal at 2.6. ASSESSMENT 1. 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 Twenty-two lymph nodes were negative for metastasis. MSI high was negative. It seems that the tumor was invading the anterior abdominal wall and stomach so it is a stage T4. Patient also had colonic obstruction so he is high risk stage II and for this reason patient started adjuvant chemotherapy with FOLFOX on January 19, 2018. He received six cycles so far and today was his last day of cycle #6. I am planning to continue followup. I will see him again in two weeks with CBC, chem panel and CEA. I will check his CBC and chem panel each week. 2. Iron deficiency anemia. Patient currently on iron supplement with improvement of his hemoglobin. His current hemoglobin improved from 11.2 and currently 15.2. We will continue to monitor. PLAN 1. FOLFOX as per schedule. 2. CBC and chem panel to be checked weekly. 3. Patient to return in two weeks with CBC, chem panel and CEA. 4. Consider iron supplement. 5. Patient to contact us for any new concerns or complaints. MTDD
[2018-04-08 10:44] VITALS: BP 129/79
[2018-04-08 10:57] LABS: PLATELET COUNT, AUTOMATED 181 K/uL (150-450)
[2018-04-13 08:31] VITALS: BP 131/81
[2018-04-13] MEDS: LIDOCAINE/SOD BICARB 8.4% SYR ID PRN (08:45)
[2018-04-13] MEDS: NS(*) 0.9% 500 ML BAG 500 ML IV PRN (08:46)
[2018-04-13] MEDS: DEXAMETHASONE SOD PHOS 10MG/ML IVP PRN (09:29)
[2018-04-13] MEDS: PALONOSETRON 0.25 MG/5 ML VIAL IVP PRN (09:29)
--- NOTE | 2018-04-13 10:29 | ONCOLOGY FOLLOW UP NOTE ---
EVENT DATE: April 13, 2018 CHIEF COMPLAINT Followup for stage II colon cancer. HISTORY OF PRESENT ILLNESS Patient is a 42-year-old male who was seen today for consideration of cycle #7 of adjuvant FOLFOX. He is tolerating this well. He recently started B12 and believes his peripheral neuropathy and cold intolerance are improved. Energy is good. He is having no issues tolerating the oral iron. Stools are loose per his ileostomy but no michael diarrhea. ONCOLOGY HISTORY Patient is a 42-year-old male who presented with right renal colic and bloody stools. CT of the abdomen and pelvis on December 09, 2017, showed a 4 mm obstructing calculus in the upper right ureter with right hydronephrosis and nonobstructing calculi in both kidneys. A transverse colon mass was noted with extracolonic tissue attenuation. He was also noted to have iron deficiency anemia. He underwent a right colectomy with en tacho resection of the greater curvature of the stomach and anterior abdominal wall with cholecystectomy and end ileostomy on December 10, 2017. Pathology was positive for an invasive mucinous adenocarcinoma of the colon, low-grade, with invasion through the serosa and into the pericolonic fat with negative margins. Twenty-two lymph nodes were negative for metastases. MSI high was negative. Final pathology showed stage II (pT4 pN0 cM0). He began FOLFOX on January 19, 2018. PAST MEDICAL HISTORY 1. Renal stones. 2. Inflammatory bowel disease for nearly 20 years, but patient was not diagnosed, but he has had colonic symptoms for about 20 years now with rare bloody stools. PAST SURGICAL HISTORY Extended right colectomy on December 10, 2017. FAMILY HISTORY Father had blood disorder that seems to be polycythemia as he was donating blood frequently. Maternal cousin with colon cancer. Paternal grandfather ; he had prostate cancer. SOCIAL HISTORY Patient is single with no children. 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 He quit tobacco 15 year ago after one pack every four days for six years. He quit alcohol five years ago. No abuse of illicit drugs. CURRENT MEDICATIONS Ferrous sulfate 325 mg three times daily with meals. ALLERGIES No known drug allergies. REVIEW OF SYSTEMS A 12-point review of systems is performed and is negative except as stated above. PHYSICAL EXAMINATION VITAL SIGNS: Weight 61.9 kg. BP 131/81, P 66, R 16, temperature 99, O2 sat 95%. GENERAL: Patient is a well-developed, well-nourished, male in no acute distress. HEAD: Normocephalic, atraumatic. EYES: Sclerae anicteric. NECK: Supple. No adenopathy. LUNGS: Clear bilaterally. CARDIOVASCULAR: Heart rate regular, 66 per minute, without murmur, S3 or S4. ABDOMEN: Soft, nontender with active bowel sounds. Ileostomy intact. EXTREMITIES: No edema. NEUROLOGICAL: Nonfocal. LAB CBC today reveals a WBC of 4.4, ANC of 2.4, hemoglobin 14.0, hematocrit 45.0, platelets 133,000. CMP is within normal limits except for random glucose 169, AST 62, ALT 68, alkaline phosphatase 182. CEA is pending. IMPRESSION AND PLAN The patient is a 42-year-old male diagnosed with stage II (pT4 pN0 cM0) adenocarcinoma of the colon, mucinous type. Underwent extended right colectomy with en tacho resection of the greater curvature of the stomach and anterior wall with cholecystectomy and end ileostomy on December 10, 2017. Twenty-two lymph nodes were negative for metastases. MSI high was negative. He began FOLFOX on January 19, 2018. 1. Colon cancer. Cycle #7 of adjuvant FOLFOX. He continues to tolerate this well. 2. Iron-deficiency anemia. Hemoglobin has decreased slightly to 14.0 but is overall stable. He is tolerating iron sulfate without issue. MCV continues to very slowly improve, now 72.3. 3. Increased liver function tests. AST, ALT and alkaline phosphatase remain slightly elevated but stable. We will continue to monitor closely. No dosing change is required at this time. 4. Neuropathy. Describes more neuropathy in his hands than his feet. He also has the expected cold intolerance. He is now taking B12 and believes that this is helping. 5. Follow up on April 27, 2018, for cycle #8 of treatment. 6. Follow up with Dr. Brandon on April 29, 2018, for continued care. TINO
[2018-04-13 12:23] VITALS: BP 117/76
[2018-04-15] MEDS: HEPARIN FLSH (PORT) 500 UN/5ML IVP PRN (10:50)
[2018-04-15 10:52] VITALS: BP 129/77
[2018-04-22 10:36] VITALS: BP 119/76
[2018-04-22 10:59] LABS: PLATELET COUNT, AUTOMATED 153 K/uL (150-450)
[2018-04-27 08:28] VITALS: BP 120/84
[2018-04-27] MEDS: NS(*) 0.9% 500 ML BAG 500 ML IV PRN (08:39)
[2018-04-27] MEDS: LIDOCAINE/SOD BICARB 8.4% SYR ID PRN (08:39)
[2018-04-27] MEDS: PALONOSETRON 0.25 MG/5 ML VIAL IVP PRN (09:25)
[2018-04-27] MEDS: DEXAMETHASONE SOD PHOS 10MG/ML IVP PRN (09:26)
[2018-04-29 12:12] VITALS: BP 112/72
[2018-04-29] MEDS: HEPARIN FLSH (PORT) 500 UN/5ML IVP PRN (12:19)
--- NOTE | 2018-04-29 13:00 | EL[facility] ONCOLOGY NOTE ---
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 CHIEF COMPLAINT Patient is here today for followup of his colon cancer, on adjuvant chemotherapy with FOLFOX. ONCOLOGY HISTORY Patient is a 42-year-old male who presented with right renal colic and bloody stools for about two days prior to his presentation so the patient came to the emergency department at [facility] in [place] and CT abdomen and pelvis done on December 09, 2017 showed 4 mm obstructing calculus in the upper right ureter near the UPJ with mild right hydronephrosis with nonobstructing calculi in both kidneys. Transverse colon mass is noted with extracolonic soft tissue attenuation. It appears to invade the anterior abdominal wall and gastric antrum with some colonic obstruction with possible inflammatory ileitis with bilateral sacroiliac joint ankylosis, suggestive of Crohn's disease. There was also an exophytic lesion 2.7 cm from the lower pole of the left kidney. Patient also was found to have iron deficiency anemia. On December 10, 2017, patient had extended right colectomy with en tacho resection of the greater curvature of the stomach and anterior abdominal wall with cholecystectomy and end ileostomy and the pathology came back positive for invasive mucinous adenocarcinoma of the colon, low grade, with invasion through the serosa and into the pericolonic fat with negative margins. Twenty-two lymph nodes were negative for metastasis. MSI high was negative. When asking Dr. Koroma, the surgeon, it seems that the mass was actually invading the anterior abdominal wall and the stomach so it is a T4 lesion. The stage is stage 2 (pT4 pN0 cM0) and 22 lymph nodes were negative for metastasis. Patient started adjuvant chemotherapy with FOLFOX on January 19 2018. Patient completed eight cycles of adjuvant FOLFOX therapy on April 29, 2018. HISTORY OF PRESENT ILLNESS Patient is here today for followup of his colon cancer, on adjuvant chemotherapy with FOLFOX regimen. Today will be cycle #8. Patient is doing fine currently except for some runny nose. He has also nausea. He has neuropathy, especially on cold exposure, with tingling and numbness, more in his hands than his feet. He is a little bit weak, tired and fatigued. . PAST MEDICAL HISTORY 1. Renal stones. 2. Inflammatory bowel disease for nearly 20 years but patient was not diagnosed but he has had colonic symptoms for about 20 years now with rare bloody stools. PAST SURGICAL HISTORY Extended right colectomy on December 10, 2017. FAMILY HISTORY Father had blood disorder that seems to be polycythemia as he was donating blood frequently. Maternal cousin with colon cancer. Paternal grandfather ; he had prostate cancer. SOCIAL HISTORY Patient is single with no children. 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 He quit tobacco 15 year ago after one pack every four days for six years. He quit alcohol five years ago. No abuse of illicit drugs. CURRENT MEDICATIONS Ferrous sulfate 315 mg three times daily with meals. ALLERGIES No known drug allergies. REVIEW OF SYSTEMS CONSTITUTIONAL: Patient had loss of weight. He lost weight before surgery but his current weight is about 30 pounds loss. He has started to gain some weight lately. HEENT: Ears: No tinnitus or hearing problem. Nose: He has nasal discharge. Throat: No sore throat or mouth ulcers. Eyes: No diplopia or visual changes. RESPIRATORY: No shortness of breath. No cough, expectoration or hemoptysis. CARDIOVASCULAR: No chest pain, orthopnea, or paroxysmal nocturnal dyspnea (PND). No edema. No palpitations. GASTROINTESTINAL: He has nausea. GENITOURINARY: No hematuria or dysuria. MUSCULOSKELETAL: He has back pain. NEUROLOGICAL: He has tingling and numbness, more in the hands than the feet. HEMATOLOGIC/LYMPHATIC: He is weak, tired and fatigued. SKIN: No skin rash or lumps. PSYCHIATRIC: No anxiety or depression. PHYSICAL EXAMINATION GENERAL: Looks stable. Well-developed, well-nourished, and in no acute distress. VITAL SIGNS: Blood pressure 112/72, pulse 74 per minute, respirations 18 per minute, temperature 98.8, pulse oximetry 96% on room air. HEENT: Head: Atraumatic. No sinus tenderness to palpation. Eyes: No icterus or conjunctivitis. Mouth and throat: No oral thrush or mucositis. NECK: Supple. No cervical or supraclavicular lymphadenopathy. LUNGS: Clear to auscultation and percussion bilaterally. HEART: Regular rate and rhythm. No gallops, murmurs, clicks or rubs. ABDOMEN: Ileostomy is noted and healing is doing well. EXTREMITIES: No cyanosis, clubbing or edema. LYMPHATICS: No peripheral lymphadenopathy. NEUROLOGICAL: Conscious, alert and oriented times three. No focal motor or sensory deficits. PSYCHIATRIC: Mood and affect appear normal. SKIN: No skin rash, bruise or purpuric eruption. DIAGNOSTIC DATA CBC showed white count 5,000, hemoglobin 15, hematocrit 47.7, platelets 128,000. Chem panel totally normal except potassium 3.2, blood sugar 152, AST 77, ALT 89, alkaline phosphatase 189. CEA is 3.1, down from 3.3. . ASSESSMENT 1. 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 Twenty-two lymph nodes were negative for metastasis. MSI high was negative. Patient had also colonic obstruction so he is high risk stage II and for this reason patient received adjuvant chemotherapy with FOLFOX, started on January 19, 2018. He received seven cycles and is currently receiving the eighth cycle, which will be the last cycle of chemotherapy, which is given on April 29, 2018. I am planning to check his count weekly and I will bring him in two weeks and if his counts are totally normal I will see him in three months with CBC, chem panel and CEA. 2. Iron deficiency anemia, on iron supplement currently. His hemoglobin is normalized and increased from 11.2 and currently it is 15. We will continue to monitor. PLAN 1. FOLFOX #8. This will be the last cycle of chemotherapy. 2. CBC and chem panel to be checked weekly. 3. Patient to return in two weeks with CBC, chem panel and CEA. 4. Patient to return in three months with CBC, chem panel and CEA. 5. Patient to contact us for any new concerns or complaints. MTDD
--- NOTE | 2018-04-29 13:16 | NUR ---
SW completed and emailed the requested return to work form for the patient.
[2018-05-05 10:41] VITALS: BP 124/88
[2018-05-05 10:55] LABS: PLATELET COUNT, AUTOMATED 204 K/uL (150-450)
[2018-05-13 08:31] VITALS: BP 128/74
[2018-05-13 08:48] LABS: PLATELET COUNT, AUTOMATED 119 K/uL (150-450)
--- NOTE | 2018-05-13 11:54 | ONCOLOGY FOLLOW UP NOTE ---
EVENT DATE: May 13, 2018 CHIEF COMPLAINT Followup for stage II colon cancer, on adjuvant chemotherapy with FOLFOX, completed on April 29, 2018. HISTORY OF PRESENT ILLNESS Patient is a 42-year-old gentleman here today for followup after recently completing his last cycle of FOLFOX two weeks ago. That was his eighth and final cycle of adjuvant chemotherapy. 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 It is intermittent and is not interfering with ADLs. He has had some cold intolerance, largely related to peripheral and pharyngeal dysesthesias secondary to chemotherapy, which again have improved. He reports that his energy and appetite are good. He recently started B12 as well. He denies any constipation or diarrhea. ONCOLOGY HISTORY Patient is a 42-year-old male who presented with right renal colic and bloody stools. CT of the abdomen and pelvis on December 09, 2017, showed a 4 mm obstructing calculus in the upper right ureter with right hydronephrosis and nonobstructing calculi in both kidneys. A transverse colon mass was noted with extracolonic tissue attenuation. He was also noted to have iron deficiency anemia. He underwent a right colectomy with en tacho resection of the greater curvature of the stomach and anterior abdominal wall with cholecystectomy and end ileostomy on December 10, 2017. Pathology was positive for an invasive mucinous adenocarcinoma of the colon, low-grade, with invasion through the serosa and into the pericolonic fat with negative margins. Twenty-two lymph nodes were negative for metastases. MSI high was negative. Final pathology showed stage II (pT4 pN0 cM0). He began FOLFOX on January 19, 2018. Patient just recently completed eight cycles of adjuvant chemotherapy with FOLFOX on April 29, 2018. He has been undergoing follow up weekly labs, which have been normal. PAST MEDICAL HISTORY 1. Renal stones. 2. Inflammatory bowel disease for nearly 20 years, but patient was not diagnosed, but he has had colonic symptoms for about 20 years now with rare bloody stools. PAST SURGICAL HISTORY Extended right colectomy on December 10, 2017. FAMILY HISTORY Father had blood disorder that seems to be polycythemia as he was donating blood frequently. Maternal cousin with colon cancer. Paternal grandfather ; he had prostate cancer. SOCIAL HISTORY Patient is single with no children. 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 He quit tobacco 15 year ago after one pack every four days for six years. He quit alcohol five years ago. No abuse of illicit drugs. CURRENT MEDICATIONS Ferrous sulfate 325 mg three times daily with meals. ALLERGIES No known drug allergies. REVIEW OF SYSTEMS A 12-point review of systems is performed and is negative except as stated above and directly below. CONSTITUTIONAL: Patient denies any recent fevers or chills. HEENT: Patient occasionally has some reports of a runny nose but no associated fevers or any other symptoms. This is at baseline. GI: He has had some diarrhea in the past but reports that his bowels are working well at this time. His ileostomy is functioning well. No nausea. NEURO: As noted above, patient has had some neuropathy throughout treatment with numbness and tingling sensations in his hands and feet bilaterally, which is intermittent. This is more noticeable in his hands than in his feet and seems to worsen on cold exposure but, again, he believes this is largely stable. ENDOCRINE: Patient has had some fatigue throughout treatment but reports this is also stable. PHYSICAL EXAMINATION VITAL SIGNS: Weight today 141.9 pounds, up approximately 5 pounds compared to last visit on April 13, 2018. T 98.3 degrees F, P 70, R 16, BP 128/74, oxygen saturation 95% room air. GENERAL: This is a pleasant 42-year old, somewhat thin appearing gentleman but who overall appears well-developed, well-nourished and is in no acute distress. HEAD: Normocephalic, atraumatic. EYES: Sclerae anicteric. ENT/MOUTH: No significant rhinorrhea noted. No oral ulcerations. NECK: Supple. No adenopathy. LUNGS: Clear breath sounds to auscultation bilaterally. CARDIOVASCULAR: Heart rate regular with normal rhythm. No ectopy. ABDOMEN: Soft, nontender, nondistended with active bowel sounds. Ileostomy if functioning well and is intact. NEUROLOGICAL: Nonfocal. Patient is awake, alert and oriented x3. Strength is 5/5 throughout. PSYCH: Mood and affect are appropriate and within normal limits. EXTREMITIES: No edema. No clubbing or cyanosis. LAB CBC today: WBC 4.6, hemoglobin 14.7, hematocrit 46.1%, platelets 119,000. Manual diff still pending but ANC calculates to be 2,000. CMP today revealed normal sodium at 139, normal potassium at 3.6, BUN and creatinine normal with serum creatinine of 0.90 and glucose somewhat elevated at 137. Total bilirubin normal at 1.1. He does have some elevated transaminases with AST at 70, down from previous 78 and ALT at 55, significantly reduced from previous 102. Alkaline phosphatase remains elevated up to 211 today, slightly elevated from previous 198 on May 05, 2018. Protein to include albumin are normal. CEA is pending. IMPRESSION AND PLAN The patient is a 42-year-old male diagnosed with stage II (pT4 pN0 cM0) adenocarcinoma of the colon, mucinous type. Underwent extended right colectomy with en tacho resection of the greater curvature of the stomach and anterior wall with cholecystectomy and end ileostomy on December 10, 2017. Twenty-two lymph nodes were negative for metastases. MSI high was negative. He began FOLFOX on January 19, 2018. He completed eight cycles with his last/eighth cycle given on April 29, 2018. His followup labs post chemotherapy have been within normal limits. He has had a mild microcytic hyperchromic anemia and is tolerating oral iron and B12 well. He has also had some transaminitis. 1. Colon cancer. Patient just completed Cycle #8 with adjuvant FOLFOX two weeks ago on April 29, 2018. At this point, he has completed all planned adjuvant chemotherapy and we deem treatment complete at this time. 2. Iron-deficiency anemia. Hemoglobin normal today at 14.7. He does have a microcytic hyperchromia and is tolerating oral iron sulfate without any issues. He is also on B12 to help his neuropathy and he is tolerating this well. 3. Transaminitis. AST, ALT and alkaline phosphatase have all been elevated. Alkaline phosphatase remains elevated and is slightly higher today compared to previous. His AST and ALT are both elevated today but have decreased quite a bit. We will continue to monitor this closely. No intervention is planned at this time and he is not having any outward physical symptomatology. 4. Repeat CEA was drawn today and is currently pending. 5. Neuropathy. Patient is on B12, which he believes has been helping with this. He notices it is more on his hands that his feet but this is currently stable. Our hopes and plan is that this will continue to improve the further out from chemotherapy. 6. Patient will return to the clinic in three months per his medical oncologist plan, with repeat labs at that time to include CBC, CMP and CEA. Patient is scheduled for followup on July 29, 2018. 7. Reviewed signs and symptoms of when to call our office in case patient should need to be seen in the interim. MTDD
[2018-05-20 11:14] VITALS: BP 134/79
[2018-05-20 11:18] LABS: PLATELET COUNT, AUTOMATED 200 K/uL (150-450)
[~2018-05-31] VITALS: Ht 167.6 cm; Wt 64.5 kg
[~2018-05-31 10:44] MED LIST changes: +ALTEPLASE RECOMB 2 MG VIAL IVP PRN; +D5W IV ONE; +DEXTROSE 5%(*) 100 ML BAG 100 ML IVPB PRN; +FLUOROURACIL 50 MG/ML SDV IV ONE; +FLUOROURACIL 50 MG/ML SDV IVP ONE; +FLUOROURACIL IV ONE; +LEUCOVORIN CAL IV ONE; +NS 0.9% IV ONE; +NS(*) 0.9% 100 ML BAG 100 ML IVPB PRN; +OXALIPLATIN IVPB ONE; +WATER FOR INJ,STERILE 20 ML IVP PRN; +[UNRECOGNIZED DRUG - OTHER] IVPB ONE
[2018-05-31 10:55] VITALS: BP 118/75
[2018-05-31 11:06] LABS: PLATELET COUNT, AUTOMATED 254 K/uL (150-450)
[2018-05-31] MEDS: HEPARIN FLSH (PORT) 500 UN/5ML IVP PRN (11:19)
[2018-05-31] MEDS: LIDOCAINE/SOD BICARB 8.4% SYR ID PRN (11:19)
== END 2018-06-30 ==
LOC: SPU 10:44
PROVIDERS: ATTEND Internal Medicine Hematology
DX: Z51.11 Encounter for antineoplastic chemotherapy (principal); C18.9 Malignant neoplasm of colon, unspecified; D50.9 Iron deficiency anemia, unspecified; Z87.891 Personal history of nicotine dependence; R53.1 Weakness; R53.83 Other fatigue; G62.9 Polyneuropathy, unspecified
CPT/HCPCS: 36415; 36591; 82378; 85025; 85027; 96368; 96375; 96411; 96413; 96415; 96416; 96523; 99212; J0640; J1100; J1642; J2469; J7040; J7060; J9190; J9263; 82040; 82247; 82310; 82374; 82435; 82565; 82947; 84075; 84132; 84155; 84295; 84450; 84460; 84520

== ENCOUNTER 2018-09-05 08:17 | Outpatient (RCR) | payer BC ==
[2017-12-10 09:28] VITALS: Wt 67.0 kg
[2018-07-06 10:23] VITALS: BP 139/83
[2018-07-06] MEDS: LIDOCAINE/SOD BICARB 8.4% SYR ID PRN (10:42)
[2018-07-06] MEDS: HEPARIN FLSH (PORT) 500 UN/5ML IVP PRN (10:42)
[2018-07-29 11:16] VITALS: BP 106/68
[2018-07-29] MEDS: HEPARIN FLSH (PORT) 500 UN/5ML IVP PRN (11:19)
[2018-07-29] MEDS: LIDOCAINE/SOD BICARB 8.4% SYR ID PRN (11:20)
[2018-07-29 11:38] LABS: PLATELET COUNT, AUTOMATED 319 K/uL (150-450)
--- NOTE | 2018-07-29 21:38 | ONCOLOGY FOLLOW UP NOTE ---
EVENT DATE: July 29, 2018 DIAGNOSIS Stage II (pT4 pN0 cN0) transverse colon adenocarcinoma, mucinous type. CHIEF COMPLAINT Patient is here today for followup of his colon cancer, on adjuvant chemotherapy with FOLFOX. ONCOLOGY HISTORY Patient is a 43-year-old male who presented with right renal colic and bloody stools for about two days prior to his presentation, so the patient came to the Emergency Department at [facility] in [place], and CT abdomen and pelvis done on December 09, 2017, showed 4 mm obstructing calculus in the upper right ureter near the UPJ with mild right hydronephrosis with nonobstructing calculi in both kidneys. Transverse colon mass is noted with extracolonic soft tissue attenuation. It appears to invade the anterior abdominal wall and gastric antrum with some colonic obstruction with possible inflammatory ileitis with bilateral sacroiliac joint ankylosis, suggestive of Crohn disease. There was also an exophytic lesion 2.7 cm from the lower pole of the left kidney. Patient also was found to have iron deficiency anemia. On December 10, 2017, patient had extended right colectomy with en tacho resection of the greater curvature of the stomach and anterior abdominal wall with cholecystectomy and end ileostomy. The pathology came back positive for invasive mucinous adenocarcinoma of the colon, low grade, with invasion through the serosa and into the pericolonic fat with negative margins. Twenty-two lymph nodes were negative for metastasis. MSI high was negative. When asking Dr. Koroma, the surgeon, it seems that the mass was actually invading the anterior abdominal wall and the stomach, so it is a T4 lesion. The stage is stage II (pT4 pN0 cM0), and 22 lymph nodes were negative for metastasis. Patient started adjuvant chemotherapy with FOLFOX on January 19, 2018. Patient completed eight cycles of adjuvant FOLFOX therapy on April 29, 2018. HISTORY OF PRESENT ILLNESS Patient is here today for followup of his colon cancer. He is doing fine currently, and apart from having residual neuropathy in his hands and feet from his previous chemotherapy, patient does not have any other complaints. PAST MEDICAL HISTORY 1. Renal stones. 2. Inflammatory bowel disease for nearly 20 years, but patient was not diagnosed, but he has had colonic symptoms for about 20 years now with rare bloody stools. PAST SURGICAL HISTORY Extended right colectomy on December 10, 2017. SOCIAL HISTORY Patient is single with no children. 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 He quit tobacco 15 year ago after one pack every four days for six years. He quit alcohol five years ago. No abuse of illicit drugs. FAMILY HISTORY Father had blood disorder that seems to be polycythemia as he was donating blood frequently. Maternal cousin with colon cancer. Paternal grandfather ; he had prostate cancer. CURRENT MEDICATIONS Ferrous sulfate 315 mg three times daily with meals. ALLERGIES No known drug allergies. REVIEW OF SYSTEMS CONSTITUTIONAL: No appetite or weight change. No fever, chills, or sweating. No recent infection. HEENT: Ears: No tinnitus or hearing problem. Nose: No nasal discharge or epistaxis. Throat: No sore throat or mouth ulcers. Eyes: No diplopia or visual changes. RESPIRATORY: No shortness of breath. No cough, expectoration, or hemoptysis. CARDIOVASCULAR: No chest pain, orthopnea, or paroxysmal nocturnal dyspnea (PND). No edema. No palpitations. GASTROINTESTINAL: No nausea or vomiting. No diarrhea or constipation. No change in bowel movements. No heartburn or swallowing difficulties. No abdominal pain. No jaundice. No hematemesis, melena, or rectal bleeding. GENITOURINARY: No hematuria or dysuria. MUSCULOSKELETAL: No pain in the muscles, joints, or bones. NEUROLOGIC: He has residual neuropathy in his hands and feet from previous chemotherapy. No headaches or convulsions. HEMATOLOGIC/LYMPHATIC: No bleeding or easy bruising. No weakness or fatigue. No enlarged lymph nodes. SKIN: No skin rash or lumps. PSYCHIATRIC: No anxiety or depression. PHYSICAL EXAMINATION GENERAL: Looks stable. Well developed, well nourished, and in no acute distress. VITAL SIGNS: Blood pressure 106/68, pulse 62 per minute, respirations 16 per minute, temperature 99.4, pulse ox 97% on room air. HEENT: Head: Atraumatic. No sinus tenderness to palpation. Eyes: No icterus or conjunctivitis. Mouth and Throat: No oral thrush or mucositis. NECK: Supple. No cervical or supraclavicular lymphadenopathy. LUNGS: Clear to auscultation and percussion bilaterally. HEART: Regular rate and rhythm. No gallops, murmurs, clicks, or rubs. ABDOMEN: Soft and lax. No tenderness. No hepatosplenomegaly. No masses. EXTREMITIES: No cyanosis, clubbing, or edema. LYMPHATICS: No peripheral lymphadenopathy. NEUROLOGIC: Conscious, alert, and oriented times three. No focal motor or sensory deficits. PSYCHIATRIC: Mood and affect appear normal. SKIN: No skin rash, bruise, or purpuric eruption. ASSESSMENT 1. Stage II (pT4 pN0 cM0) transverse colon adenocarcinoma, mucinous type, status post extended right colectomy with en bloc resection of the greater curvature of the stomach and anterior abdominal wall with cholecystectomy and ileostomy done December 10, 2017. Pathology was positive for invasive mucinous adenocarcinoma of the colon, low grade, with invasion through the serosa and into the pericolonic fat with negative margins. Twenty-two lymph nodes were negative for metastasis. MSI high was negative. Patient had also colonic obstruction, so he is a high-risk stage II, and for this reason, patient received adjuvant chemotherapy with eight cycles of FOLFOX between January 19, 2018, through April. Patient is doing fine currently, and apart from having residual neuropathy from his chemotherapy, he does not have any other complaints today. I am planning to continue followup. I will see him again in three months with CBC, chemistry panel, and CEA. His blood work today is still pending, and if there is any abnormality in his blood work, we will contact the patient. 2. Iron deficiency anemia. Patient received iron supplement. His last hemoglobin was 11.2 g/dL, which improved to 15. Will continue to monitor. PLAN 1. Continue followup. 2. Patient to return in three months with CBC, chem panel, and CEA. 3. Patient to contact us for any new concerns or complaints. TINO
[~2018-09-05 08:17] MED LIST changes: -D5W IV ONE; -FLUOROURACIL 50 MG/ML SDV IV ONE; -FLUOROURACIL 50 MG/ML SDV IVP ONE; -FLUOROURACIL IV ONE; -LEUCOVORIN CAL IV ONE; -NS 0.9% IV ONE; +NS(*) 0.9% 250 ML BAG 250 ML IVPB PRN; -OXALIPLATIN IVPB ONE; -[UNRECOGNIZED DRUG - OTHER] IVPB ONE
[2018-09-05 08:21] VITALS: BP 115/70
[2018-09-05] MEDS: HEPARIN FLSH (PORT) 500 UN/5ML IVP PRN (08:32)
[2018-09-05] MEDS: LIDOCAINE/SOD BICARB 8.4% SYR ID PRN (08:32)
== END 2018-10-04 ==
LOC: SPU 08:17
PROVIDERS: ATTEND Internal Medicine Hematology
DX: Z85.038 Personal history of other malignant neoplasm of large intestine (principal); Z92.21 Personal history of antineoplastic chemotherapy; D50.9 Iron deficiency anemia, unspecified; Z87.891 Personal history of nicotine dependence
CPT/HCPCS: 82378; 85025; 96523; 99212; J1642; 82040; 82247; 82310; 82374; 82435; 82565; 82947; 84075; 84132; 84155; 84295; 84450; 84460; 84520